=== PATIENT | female | born 1950 | race Caucasian/White ===

== ENCOUNTER 2020-08-16 08:22 | Outpatient (REF) | payer MEDICARE, SELFPAY ==
--- NOTE | 2020-08-16 08:27 | MM_ITS ---
EXAMINATION: MM SCREENING DIGITAL BREAST TOMOSYNTHESIS, BILATERAL CLINICAL INFORMATION: Screening. Asymptomatic. The lifetime risk of breast cancer based on the Tyrer-Cuzick Model is 5%. COMPARISON: Mammography: 08/11/2019, 08/18/2018, 06/30/2017, 06/03/2016 TECHNIQUE: Digital breast tomosynthesis is performed in both the craniocaudal and mediolateral oblique views along with computer-aided detection (CAD). Synthesized 2D images are generated from the tomosynthesis. Additional exaggerated left CC view is provided. FINDINGS: There are scattered areas of fibroglandular density (ACR BI-RADS breast composition Category b). Parenchymal pattern is similar to prior studies. There is no significant mass or architectural abnormality or interval abnormal calcifications. Nodular asymmetry posterior outer right breast on MLO view is similar to prior exams. The axilla and skin contours are unremarkable. MM/MM tomosynthesis screening BI IMPRESSION: No significant changes from prior exams. ASSESSMENT: BI-RADS 2: Benign RECOMMENDATION: Routine annual mammography screening. This patient's information was entered into a reminder system with a target due date for their next mammogram.
== END 2020-08-16 08:23 | disposition home or self-care (01) ==
LOC: HO.MAMMO 08:22
PROVIDERS: Visit Provider Internal Medicine
DX: Z12.31 Encounter for screening mammogram for malignant neoplasm of breast (principal)
CPT/HCPCS: 77063; 77067

== ENCOUNTER 2020-08-27 07:55 | Outpatient (REF) | payer MEDICARE, SELFPAY ==
--- NOTE | 2020-08-27 08:01 | MM_ITS ---
EXAMINATION: BONE DENSITOMETRY CLINICAL INDICATION: Menopause. COMPARISON: Baseline BD dated 01/12/2012. TECHNIQUE: Using a OLSET DXA System (software version: 13.1) manufactured by [employer], dual-energy x-ray absorptiometry was performed of the lumbar spine and left hip. The images are of good technical quality. Summary results are attached. FINDINGS: AP SPINE L1-L3 (excluding L4): The data of L1-L4 has been changed to exclude the L4 vertebral body, because degenerative changes at this level may cause overestimation of lumbar spine density. Current: BMD 0.879 g/cm2, Z-score -0.9, T-score -2.4, osteopenia, 16.4% decrease from baseline (<5% change is not significant). Baseline: BMD 1.051 g/cm2. LEFT FEMUR, NECK: Current: BMD 0.819 g/cm2, Z-score 0.0, T-score -1.6, osteopenia. Baseline: BMD 0.862 g/cm2. LEFT FEMUR, TOTAL: Current: BMD 0.889 g/cm2, Z-score 0.4, T-score -0.9, normal, 3.1% decrease from baseline (<5% change is not significant). Baseline: BMD 0.917 g/cm2. IDENTIFIED RISK FACTORS: Early menopause, height loss, hysterectomy, secondary osteoporosis. HISTORY OF FRACTURE: None listed. MEDICATIONS: None listed. MM/XR DEXA axial skeleton IMPRESSION: 1. DIAGNOSIS: Osteopenia based on the lowest T-score value of -2.4 in the lumbar spine applying World Health Organization criteria. 2. 10-YEAR FRACTURE RISK PREDICTION, FRAX: Major osteoporotic fracture (clinical spine, forearm, hip or shoulder) 10.1%. Hip fracture 1.5%. 3. Treatment Recommendations: NOF guidelines recommend consideration for treatment in postmenopausal women and men age 50 and older presenting with the following: -A hip or vertebral (clinical or morphometric) fracture. -T-score less than or equal to -2 at the femoral neck or spine after appropriate evaluation to exclude secondary causes. -Low bone mass at the hip or spine and a 10-year fracture probability by FRAX of greater than or equal to 3% for hip fracture or greater than or equal to 20% for major osteoporotic fracture based on the [place] adapted WHO algorithm. 4. Other Recommendations: All treatment decisions require clinical judgment and consideration of individual patient factors, including patient preferences, comorbidities, previous drug use, risk factors not captured in the FRAX model (e.g. frailty, falls, vitamin D deficiency, increased bone turnover, interval significant decline in bone density) and possible under or overestimation of fracture risk by FRAX. Additional medical evaluation for secondary cause of low bone mineral density may be appropriate. FUTURE SCAN RECOMMENDATION: People with diagnosed cases of osteoporosis or at high risk for fracture should have regular bone mineral density tests. For patients eligible for Medicare, routine testing is allowed once every 2 years. The testing frequency can be increased to one year for patients who have rapidly progressing disease, those who are receiving or discontinuing medical therapy to restore bone mass, or have additional risk factors.
== END 2020-08-27 07:56 | disposition home or self-care (01) ==
LOC: HO.MAMMO 07:55
PROVIDERS: PCP Internal Medicine; Visit Provider Internal Medicine
DX: Z78.0 Asymptomatic menopausal state (principal)
CPT/HCPCS: 77080

== ENCOUNTER 2020-12-19 08:44 | Emergency (ER) | payer MEDICARE, SELFPAY ==
--- NOTE | ~2020-12-19 | XR_ITS ---
EXAMINATION: XR ANKLE, RIGHT CLINICAL INFORMATION: Slipped and fell. Complaint of pain to right ankle and foot. COMPARISON: None TECHNIQUE: AP, lateral, and mortise views of the right ankle. FINDINGS: There is noted clinically oriented fracture of the left distal fibula with minimal posterolateral displacement. There is not appear to be widening of the tibia fibular syndesmosis. The ankle mortise is maintained. There is moderate soft tissue edema overlying the lateral malleolus. The remaining osseous structures are intact. No additional fracture identified. XR/XR ankle RT min 3V IMPRESSION: Obliquely oriented minimally displaced lateral malleolar fracture with overlying soft tissue edema.
--- NOTE | ~2020-12-19 | XR_ITS ---
EXAMINATION: XR FOOT, RIGHT CLINICAL INFORMATION: Slipped and fell. Complaint of pain right ankle and foot. COMPARISON: None TECHNIQUE: AP, lateral, and oblique views of the right foot. FINDINGS: There is an obliquely oriented fracture of the lateral malleolus better defined on radiographs of the ankle. The remaining osseous structures of the foot are intact. There are mild degenerative changes of the midfoot, otherwise alignment is maintained. Is maintained and anatomic. There are mild degenerative changes of the midfoot. There is a rounded calcific density interposed between the base of the first and second metatarsal with representing a small os intermetatarseum. There is soft tissue edema overlying the malleolus fracture. The soft tissues otherwise unremarkable. XR/XR foot RT min 3V IMPRESSION: Lateral malleolar fracture described in greater detail on radiographs of the foot. Minimal degenerative changes of the foot without acute osseous abnormality.
[2020-12-19 08:59] VITALS: BP 138/64; PULSE 86; RESP 16; TEMP 36.5; O2SAT 97; BMI 25.1
--- NOTE | 2020-12-19 09:49 | ED.LOWEXIN ---
HPI - Extremity Injury (Lower) General Chief Complaint: Extremity Injury, Lower Stated Complaint: ankle injury - fall Time Seen by Provider: 12/19/20 09:17 Source: patient Mode of arrival: ambulatory Limitations: no limitations History of Present Illness HPI Narrative: 70-year-old female presenting to the ED with complaints of right ankle/foot pain/swelling since last night when she fell down a few steps at her house in the basement while wearing slippers with her right foot/ankle twisted backwards behind her leg and since then has been having persistent pain/swelling. Denies head injury or loss of consciousness, paresthesias or any other injuries complaints or concerns at this time. MD complaint: ankle injury, foot injury and fall Onset (ago): day(s) (Since yesterday) Place: home Severity: moderate Relieving factors: nothing Exacerbating factors: weight bearing, movement and palpation Context: fall Associated symptoms: swelling and able to partially bear weight Other symptoms: none Treatments prior to arrival: cold therapy, NSAIDS and other (Mild to no symptomatic relief) Related Data Previous Rx's Medication Instructions Recorded acetaminophen [Tylenol Extra 500 mg PO Q6H PRN #14 tab 12/19/20 Strength] ibuprofen 600 mg PO Q8H PRN #14 tab 12/19/20 oxycodone 5 mg PO BID PRN #10 tab 12/19/20 Allergies Allergy/AdvReac Type Severity Reaction Status Date / Time Penicillins [PENICILLINS] Allergy Intermediate HIVES Unverified 06/20/20 15:32 sulfamethoxazole Allergy Unknown RASH Unverified 06/20/20 15:32 [From Bactrim DS] trimethoprim Allergy Unknown RASH Unverified 06/20/20 15:32 [From Bactrim DS] Review of Systems Review of Systems: Constitutional : No changes in activity, No lethargy, No recent prior head injury, No agitation, No increased fussiness ENT/Mouth : No Ear Pain, No Nasal discharge/drainage Eyes: No Eye Pain, No Swelling, No Redness, No Foreign Body, No Vision Changes Cardiovascular : No Chest Pain, No SOB Respiratory : No Cough Gastrointestinal : No Nausea, No Vomiting, No abdominal Pain Genitourinary : No Dysuria, No Urinary Frequency, No Urinary Incontinence, No Urgency, No Flank Pain Musculoskeletal : + joint pain, No neck stiffness, No back pain/injury Skin : No lacerations Neuro : No unsteady gait, No Paresthesias, No Loss of Consciousness, No altered mental status, No Headache Yes all other systems are reviewed and are negative [facility] Past Medical History Attestation statement: The following information was validated with the patient. Medical History High cholesterol Surgical History H/O: hysterectomy Social History Social History Advance Directives: No Advance Directives Information Provided: No Physical Exam Vital Signs: Vital Signs: Last Vital Signs Temp 97.7 F 12/19/20 08:59 Pulse 86 12/19/20 08:59 Resp 16 12/19/20 08:59 BP 138/64 12/19/20 08:59 Pulse Ox 97 12/19/20 08:59 Body Mass Index 25.1 Vital signs have been reviewed as normal and appeared to be correct. Blood pressure normal. Heart rate normal. Respiration rate normal. Temperature normal. Oxygen saturation normal. Appearance: Alert. Oriented x 3. No acute distress. Head: Normal external exam. Normocephalic. Atraumatic. Able to rotate head bilaterally. Eyes: PERRLA. EOMI. No nystagmus noted. Conjunctiva and sclera normal. Eyelids normal. Corneal reflex normal. ENT:Hearing normal. Pharynx normal. Uvula midline. tongue midline. Moist mucous membranes. Neck: Normal inspection. Neck supple. FROM. Nontender. CVS: Normal heart rate and rhythm. Heart sound normal. Pulses normal throughout. Respiratory: No respiratory distress. Painless inspiration. Breath sounds normal. No wheezes/rales/rhonchi noted. Chest nontender. Back: No tenderness noted. Full range of motion noted. Skin: Skin warm and dry. Normal skin color. Normal skin turgor. No rashes/lesions/lacerations noted. Extremities: Patient with tenderness to palpation to right ankle at the lateral and medial malleolus with associated soft tissue swelling going into her dorsal aspect of the right foot with associated soft tissue swelling from the 1st through the 5th metatarsals. No laxity noted. Negative constant test Achilles tendon is intact. No obvious deformities. No abrasions/lacerations or signs of infection noted. Although patient appears to walk with a slight limp to the right leg. Otherwise all other Extremities exhibit normal range of motion and nontender. Pulses intact bilaterally and distally. Reflux intact bilaterally and distally. Neuro: Oriented X 3. No motor deficit. No sensory deficit. Reflexes normal. Moving all extremities. No focal motor deficits. Speech normal. Gait normal. Strength 5/5 throughout. Muscle tone normal throughout. Course Course Course Narrative: 70-year-old female presenting to the ED with right ankle/foot pain/swelling status post fall down her steps at the basement yesterday. On exam patient has tenderness to palpation to right ankle at the lateral and medial malleolus with associated soft tissue swelling radiating to her right foot from the 1st to 5th metatarsals. No obvious deformities. Patient has a slight limp due to pain. - x-rays obtained and revealed obliquely oriented minimally displaced lateral malleolus fracture with overlying soft tissue edema - I consulted with Orthopedics POLLY Aguilar who recommended a walking boot and weight-bearing as tolerated and the patient will have to call to make a follow-up appointment within 1 week for re-x-ray to determine is stable or displaces therefore print out the results explained the results to the patient and gave her the number for the referral for Dr. Reilly office to follow-up within a week. Patient understands agrees with this plan. Procedures Orthopedic Splinting/Casting Injury #1: Side: right Lower Extremity Injury Location: ankle and foot Additional Comments: Walking boot MDM - Extremity Injury (Lower) Medical Records Attestation: I reviewed the patient's medical records. Imaging Data right ankle xray: Attestation: I personally reviewed and interpreted this imaging study as follows: Radiologist's impression: FINDINGS: There is noted clinically oriented fracture of the left distal fibula with minimal posterolateral displacement. There is not appear to be widening of the tibia fibular syndesmosis. The ankle mortise is maintained. There is moderate soft tissue edema overlying the lateral malleolus. The remaining osseous structures are intact. No additional fracture identified. XR/XR ankle RT min 3V IMPRESSION: Obliquely oriented minimally displaced lateral malleolar fracture with overlying soft tissue edema. Right foot x-ray: Attestation: I personally reviewed and interpreted this imaging study as follows: Radiologist's impression: FINDINGS: There is an obliquely oriented fracture of the lateral malleolus better defined on radiographs of the ankle. The remaining osseous structures of the foot are intact. There are mild degenerative changes of the midfoot, otherwise alignment is maintained. Is maintained and anatomic. There are mild degenerative changes of the midfoot. There is a rounded calcific density interposed between the base of the first and second metatarsal with representing a small os intermetatarseum. There is soft tissue edema overlying the malleolus fracture. The soft tissues otherwise unremarkable. XR/XR foot RT min 3V IMPRESSION: Lateral malleolar fracture described in greater detail on radiographs of the foot. Minimal degenerative changes of the foot without acute osseous abnormality. Discharge Plan Discharge Clinical Impression: Fracture of lateral malleolus of right ankle, Fall Patient Disposition: Home, Self-Care Instructions: Ankle Fracture (ED), Walking Boot (ED) Prescriptions: New oxycodone 5 mg tablet 5 mg PO BID PRN (Reason: pain) Qty: 10 RF: 0 acetaminophen [Tylenol Extra Strength] 500 mg tablet 500 mg PO Q6H PRN (Reason: pain) Qty: 14 RF: 0 ibuprofen 800 mg tablet 600 mg PO Q8H PRN (Reason: pain) Qty: 14 RF: 0 Referrals: Brad Reilly MD [Physician] - 1 day (Call today or tomorrow to make a follow-up appointment within a week) Print Language: Estonian
== END 2020-12-19 10:50 | disposition home or self-care (01) ==
PROVIDERS: Emergency Provider Emergency Medicine Emergency Medical Services; PCP Internal Medicine
DX: S82.61XA Displaced fracture of lateral malleolus of right fibula, initial encounter for closed fracture (principal); M25.571 Pain in right ankle and joints of right foot; W10.9XXA Fall (on) (from) unspecified stairs and steps, initial encounter; Y93.9 Activity, unspecified; Y92.009 Unspecified place in unspecified non-institutional (private) residence as the place of occurrence of the external cause; Y99.9 Unspecified external cause status; Z79.899 Other long term (current) drug therapy
CPT/HCPCS: 29515; 73610; 73630; 99202; 99283

== ENCOUNTER 2021-01-07 09:04 | Outpatient (REF) | payer MEDICARE, SELFPAY ==
--- NOTE | ~2021-01-07 | XR_ITS ---
EXAMINATION: XR ANKLE, RIGHT CLINICAL INFORMATION: Pain COMPARISON: Right ankle x-rays December 19, 2020 TECHNIQUE: AP, lateral, and mortise views of the right ankle. FINDINGS: Again demonstrated is an oblique comminuted fracture of the lateral malleolus. Alignment appears similar to prior imaging. There is a mild interval callus formation. The ankle mortise remains intact. There is persistent mild soft tissue swelling of the ankle. Plantar calcaneal enthesophytes noted. XR/XR ankle RT min 3V IMPRESSION: Mild interval healing of lateral malleolus fracture. Fracture line still well visualized.
== END 2021-01-07 09:05 | disposition home or self-care (01) ==
LOC: HO.HOSX 09:04
PROVIDERS: Visit Provider Physician Assistant
DX: S82.831A Other fracture of upper and lower end of right fibula, initial encounter for closed fracture (principal)
CPT/HCPCS: 73610; 99212

== ENCOUNTER 2021-02-27 07:13 | Outpatient (REF) | payer MEDICARE, SELFPAY ==
[2021-02-27 08:19] LABS: MANUAL DIFF FLAG NO
[2021-02-27 08:31] LABS: Basophils Percent Auto 0.8 % (0-2); Eosinophils Absolute Auto 0.1 X10*3/uL (0.0-0.4); Hematocrit 41.2 % (37-47); Hemoglobin 13.1 g/dl (12.0-16.0); Imm Gran Abs Auto 0.01 X10*3/uL (0.00-0.03); Imm Gran Pct Auto 0.2 % (0.0-0.4); Lymphocytes Absolute Auto 1.8 X10*3/uL (1.2-4.9); Lymphocytes Percent Auto 37.1 % (20-40); Mean Corpuscular HGB Conc 31.8 g/dl (31.0-35.0); Mean Corpuscular Hemoglobin 28.6 pg (27.0-33.0); Mean Platelet Volume 9.7 fL (9.4-12.3); Monocytes Absolute Auto 0.3 X10*3/uL (0.1-1.2); Neutrophils Absolute Auto 2.5 X10*3/uL (2.0-8.3); Neutrophils Percent Auto 51.9 % (45-73); Platelet Count 242 X10*3/uL (160-400); Red Blood Count 4.58 X10*6/uL (4.20-5.50); White Blood Count 4.7 X10*3/uL (4.8-10.8)
[2021-02-27 08:56] LABS: Alanine Aminotransferase 13 U/L (0-31); Albumin Level 4.3 g/dL (3.5-5.0); Alkaline Phosphatase 85 U/L (39-117); Anion Gap 12 (12-20); Aspartate Amino Transferase 18 U/L (5-31); Bilirubin Total 0.3 mg/dL (0.0-1.0); Blood Urea Nitrogen 20 mg/dL (9-16); Calcium 9.4 mg/dL (8.4-10.2); Carbon Dioxide 27 mmol/L (22-29); Chloride 106 mmol/L (96-108); Cholesterol 160 mg/dL; Estimated Glomerular Filt Rate > 60; Glucose Fasting 101 mg/dL (60-99); HDL Cholesterol 55 mg/dL; LDL Cholesterol Calculated 90 mg/dl; Potassium 4.9 mmol/L (3.3-5.1); Sodium 140 mmol/L (135-145); Total Protein 7.2 g/dL (6.5-8.0); Triglycerides 75 mg/dL
== END 2021-02-27 07:14 | disposition home or self-care (01) ==
LOC: HO.LAB 07:13
PROVIDERS: PCP Internal Medicine; Visit Provider Internal Medicine
DX: Z00.00 Encounter for general adult medical examination without abnormal findings (principal); E78.00 Pure hypercholesterolemia, unspecified
CPT/HCPCS: 36415; 80053; 80061; 85025

== ENCOUNTER 2021-04-16 15:06 | Outpatient (REF) | payer MEDICARE, SELFPAY ==
--- NOTE | ~2021-04-16 | XR_ITS ---
EXAMINATION: XR CHEST CLINICAL INFORMATION: Cough. Gastroesophageal reflux. COMPARISON: Chest radiograph dated 10/19/2011 TECHNIQUE: Two views of the chest were obtained. FINDINGS: The lungs are clear. The cardiomediastinal silhouette is normal in size. There is no pleural effusion or pneumothorax. No acute osseous abnormality. XR/XR chest 2V IMPRESSION: No acute cardiopulmonary findings.
== END 2021-04-16 15:07 | disposition home or self-care (01) ==
LOC: HO.XRAY 15:06
PROVIDERS: PCP Internal Medicine; Visit Provider Internal Medicine
DX: R05 Cough (principal); K21.9 Gastro-esophageal reflux disease without esophagitis
CPT/HCPCS: 71046

== ENCOUNTER 2021-08-19 10:17 | Outpatient (REF) | payer MEDICARE, SELFPAY ==
[2021-08-20 13:07] LABS: Lyme Abs Screen <0.90 index
== END 2021-08-19 10:18 | disposition home or self-care (01) ==
LOC: HO.LAB 10:17
PROVIDERS: PCP Internal Medicine; Visit Provider Internal Medicine
DX: T14.8XXA Other injury of unspecified body region, initial encounter (principal); W57.XXXA Bitten or stung by nonvenomous insect and other nonvenomous arthropods, initial encounter
CPT/HCPCS: 36415; 86617; 86618

== ENCOUNTER 2021-10-01 11:20 | Outpatient (REF) | payer MEDICARE, SELFPAY ==
--- NOTE | ~2021-10-01 | MM_ITS ---
EXAMINATION: MM SCREENING DIGITAL BREAST TOMOSYNTHESIS, BILATERAL CLINICAL INFORMATION: Screening. Asymptomatic. The lifetime risk of breast cancer based on the Tyrer-Cuzick Model is 5%. COMPARISON: Mammography: 08/16/2020, 08/11/2019, 07/18/2018 TECHNIQUE: Digital breast tomosynthesis is performed in both the craniocaudal and mediolateral oblique views along with computer-aided detection (CAD). Synthesized 2D images are generated from the tomosynthesis. FINDINGS: There are scattered areas of fibroglandular density (ACR BI-RADS breast composition Category b). There are no significant masses, abnormal calcifications, or other abnormalities. Parenchymal pattern is similar to prior exams. Focal asymmetry posterior outer right breast on MLO view is stable. Probable intramammary node posterior upper outer left breast also stable. There are scattered bilateral benign round and vascular calcifications. No significant changes. MM/MM tomosynthesis screening BI IMPRESSION: No mammographic evidence of malignancy. ASSESSMENT: BI-RADS 2: Benign RECOMMENDATION: Routine annual mammography screening. This patient's information was entered into a reminder system with a target due date for their next mammogram.
== END 2021-10-01 11:21 | disposition home or self-care (01) ==
LOC: HO.MAMMO 11:20
PROVIDERS: PCP Internal Medicine; Visit Provider Internal Medicine
DX: Z12.31 Encounter for screening mammogram for malignant neoplasm of breast (principal)
CPT/HCPCS: 77063; 77067

== ENCOUNTER 2021-10-29 14:38 | Outpatient (REF) | payer MEDICARE, SELFPAY ==
--- NOTE | ~2021-10-29 | XR_ITS ---
EXAMINATION: XR CERVICAL SPINE CLINICAL INFORMATION: Neck pain. COMPARISON: None TECHNIQUE: Three-view cervical spine. FINDINGS: Carotid artery calcifications are present. There is some soft tissue prominence seen anterior aspect of C6 which may be related to degenerative spurring. No retropharyngeal gas is appreciated. No acute cervical spine fracture is noted. There is multilevel degenerative disc disease seen with narrowing of the disc spaces and marginal spurring from C3 through C7. There is degenerative narrowing of the right side C1-C2 joint space. XR/XR cervical spine 3V IMPRESSION: Cervical spondylosis as described. No acute fracture.
== END 2021-10-29 14:39 | disposition home or self-care (01) ==
LOC: HO.LAB 14:38
PROVIDERS: PCP Internal Medicine; Visit Provider Internal Medicine
DX: M54.2 Cervicalgia (principal)
CPT/HCPCS: 72040

== ENCOUNTER 2021-11-12 10:28 | Outpatient (REF) | payer MEDICARE, SELFPAY ==
--- NOTE | ~2021-11-12 | MR_ITS ---
EXAMINATION: MR CERVICAL SPINE WITHOUT CONTRAST CLINICAL INFORMATION: 71-year-old with complaints of neck pain and left shoulder and elbow pain. Cervical spondylosis with degenerative disc disease and spurring. COMPARISON: 10/29/2021 x-rays. TECHNIQUE: MRI of the cervical spine was obtained using routine sequences without contrast. FINDINGS: Alignment: Alignment appears within normal limits. No significant spondylolisthesis or retrolisthesis. Craniocervical Junction/C1-C2 Articulations: Intact and aligned. Osteoarthritic degenerative changes are noted at the anterior atlantodental joint. Visualized Intracranial Structures: Within normal limits. Vertebral Bodies: Normal height. Disc Spaces and Endplates: Moderate degrees of intervertebral disc space height loss are noted between C3-C4 and C6-C7 inclusive, with multilevel disc desiccation and moderate degrees of anterior marginal spondylosis at these levels, with multilevel Schmorl's nodes. There is mqno-vz-varblxzt disc space height loss, Schmorl's nodes and mild spondylosis with disc desiccation also noted at T1-T2. There is minor anterior marginal spondylosis at C2-C3. These findings are similar to previous x-ray within the limitations of the comparison. Bone Marrow: No significant marrow-replacing process or bone marrow edema. Mild type II degenerative marrow signal changes are seen along the endplates at multiple levels, most prominently at C3-C4 and C4-C5. C2-C3: No disc herniation. Mild facet arthropathy noted, right more than left with no significant canal or neural foraminal stenosis. C3-C4: Broad-based posterior disc osteophyte complex noted, with moderate flattening of the ventral dural sac without cord impingement. There is mild central spinal canal stenosis. There is moderate bilateral facet arthrosis and there is uncovertebral spurring bilaterally with mild bilateral neural foraminal stenosis without neural impingement. C4-C5: Central to left paramedian disc herniation and disc osteophyte complex noted asymmetric to the left with effacement of the dural sac resulting in slight ventral cord deformity on the left, with the moderate central spinal canal stenosis asymmetric to the left. Bilateral uncovertebral spurring is noted with bilateral facet arthropathy, with purjtoev-ab-zrbqfp left-sided and moderate right-sided neural foraminal stenosis. C5-C6: Posterior disc osteophyte complex noted asymmetric to the left with flattening of the dural sac asymmetric to the left without cord impingement or deformity. Uncovertebral spurring noted left more than right and bilateral facet arthrosis, with crtvkdnk-lf-pbfqqr left-sided and mild right-sided neural foraminal stenosis. There is mild central spinal canal stenosis asymmetric to the left. C6-C7: Broad-based posterior disc osteophyte complex noted with mild flattening of the dural sac asymmetric to the left without cord impingement or canal stenosis. Bilateral uncovertebral spurring is noted with mild left-sided neural foraminal stenosis. C7-T1: Small central disc protrusion noted with minimal indentation of the ventral thecal sac without cord impingement or canal stenosis. No significant DJD or neural foraminal stenosis. Mild disc osteophyte complex at T1 to and T2-T3. The cervical and visualized upper thoracic spinal cord is grossly normal in signal intensity without focal lesion, edema or syrinx when accounting for some artifacts. MR/MR cervical spine wo con IMPRESSION: 1. Normal spinal alignment, with multilevel DDD and spondylosis as described above. There are multilevel posterior disc osteophyte complexes with encroachment on the ventral dural sac as described above with mild left-sided ventral cord deformity at C4-C5 and multilevel icvb-si-tcnntowc degrees of spinal canal stenosis, most apparent at C4-C5 and to a lesser degree at C3-C4 and C5-C6. 2. Multilevel bilateral uncovertebral and facet arthropathy with multilevel bilateral neural foraminal stenosis, most apparent at C4-C5, left more than right and at C5-C6 on the left.
== END 2021-11-12 10:29 | disposition home or self-care (01) ==
LOC: HO.MRI 10:28
PROVIDERS: Visit Provider Internal Medicine
DX: M47.22 Other spondylosis with radiculopathy, cervical region (principal)
CPT/HCPCS: 72141

== ENCOUNTER 2021-11-14 12:43 | Outpatient (REF) | payer MEDICARE, SELFPAY ==
--- NOTE | ~2021-11-14 | US_ITS ---
EXAMINATION: US EXTRACRANIAL CAROTID DUPLEX, BILATERAL CLINICAL INFORMATION: Carotid artery calcification identified on x-ray COMPARISON: Cervical spine radiographs 10/29/2021 TECHNIQUE: Real-time ultrasound and Doppler techniques (integrating B-mode 2-D vascular images, Doppler spectral analysis and color-flow Doppler imaging) were utilized to interrogate the extracranial carotid arteries, the vertebral arteries and proximal subclavian arteries bilaterally. The degree of stenosis is determined by criteria similar to NASCET. FINDINGS: Right Side: 1. There is atherosclerotic plaque seen in the bifurcation/proximal ICA region. 2. The common carotid artery PSV proximally is 112 cm/s and distally 105 cm/s. 3. The proximal internal carotid artery velocities are 104 cm/s systolic and 26.4 cm/s diastolic. 4. The proximal external carotid artery PSV is 140 cm/s. 5. The vertebral artery shows antegrade flow. 6. The subclavian artery waveforms are normal. Left Side: 1. There is atherosclerotic plaque seen in the bifurcation/proximal ICA region. 2. The common carotid artery PSV proximally is 145 cm/s and distally 89.1 cm/s. 3. The proximal internal carotid artery velocities are 145 cm/s systolic and 34.6 cm/s diastolic. 4. The proximal external carotid artery PSV is 124 cm/s. 5. The vertebral artery shows antegrade flow. 6. The subclavian artery waveforms are normal. US/US carotid duplex BI IMPRESSION: 1. RIGHT: Minimal, non-hemodynamically significant stenosis of the proximal right internal carotid artery corresponding to a 0-49% stenosis by velocity criteria. 2. LEFT: Moderate, hemodynamically significant stenosis of the proximal left internal carotid artery corresponding to a 50-79% stenosis by velocity criteria.
== END 2021-11-14 12:44 | disposition home or self-care (01) ==
LOC: HO.HMGCX 12:43
PROVIDERS: Visit Provider Internal Medicine
DX: I65.23 Occlusion and stenosis of bilateral carotid arteries (principal)
CPT/HCPCS: 93880

== ENCOUNTER 2022-10-06 08:51 | Outpatient (REF) | payer MEDICARE, SELFPAY ==
--- NOTE | ~2022-10-06 | MM_ITS ---
EXAMINATION: MM SCREENING DIGITAL BREAST TOMOSYNTHESIS, BILATERAL CLINICAL INFORMATION: Screening. Asymptomatic. The lifetime risk of breast cancer based on the Tyrer-Cuzick Model is 4%. COMPARISON: Mammography: 10/01/2021, 08/16/2020, 08/11/2019 TECHNIQUE: Digital breast tomosynthesis is performed in both the craniocaudal and mediolateral oblique views along with computer-aided detection (CAD). Synthesized 2D images are generated from the tomosynthesis. FINDINGS: There are scattered areas of fibroglandular density (ACR BI-RADS breast composition Category b). Breast tissue composition borders on heterogeneously dense. There are no significant masses, abnormal calcifications, or other abnormalities. Parenchymal pattern is similar to prior studies. Small nodular asymmetry posterior central 9:00 right breast is stable. No architectural abnormality. The axilla and skin contours are unremarkable. No significant changes. MM/MM tomosynthesis screening BI IMPRESSION: No significant changes from prior exams. ASSESSMENT: BI-RADS 2: Benign RECOMMENDATION: Routine annual mammography screening. This patient's information was entered into a reminder system with a target due date for their next mammogram.
== END 2022-10-06 08:52 | disposition home or self-care (01) ==
LOC: HO.MAMMO 08:51
PROVIDERS: PCP Internal Medicine; Visit Provider Internal Medicine
DX: Z12.31 Encounter for screening mammogram for malignant neoplasm of breast (principal)
CPT/HCPCS: 77063; 77067

== ENCOUNTER 2022-10-30 06:09 | Outpatient (REF) | payer MEDICARE, SELFPAY ==
--- NOTE | ~2022-10-30 | XR_ITS ---
EXAMINATION: XR HAND, LEFT CLINICAL INFORMATION: Left hand pain. COMPARISON: None TECHNIQUE: PA, lateral, and oblique views of the left hand. FINDINGS: There is loss of PIP and DIP joint space with mild periarticular spurring. No visible acute fracture, dislocation or subluxation seen. All loss of first carpometacarpal joint space is seen as well. No visible acute fracture, dislocation or subluxation seen. XR/XR hand LT min 3V IMPRESSION: Degenerative arthritic changes PIP and DIP joints and first carpometacarpal joint. No visible acute fracture, dislocation or subluxation seen.
[2022-10-30 06:30] LABS: MANUAL DIFF FLAG NO
[2022-10-30 07:28] LABS: Basophils Percent Auto 0.7 % (0-2); Eosinophils Absolute Auto 0.1 X10*3/uL (0.0-0.4); Hematocrit 38.2 % (37.0-47.0); Hemoglobin 12.6 g/dl (12.0-16.0); Imm Gran Abs Auto 0.01 X10*3/uL (0.00-0.03); Imm Gran Pct Auto 0.2 % (0.0-0.4); Lymphocytes Percent Auto 32.1 % (20-40); Mean Corpuscular Volume 87.8 fL (80.0-98.0); Mean Platelet Volume 9.2 fL (9.4-12.3); Monocytes Absolute Auto 0.4 X10*3/uL (0.1-1.2); Monocytes Percent Auto 6.2 % (2-11); Neutrophils Absolute Auto 3.6 x10*3/uL (2.0-8.3); Neutrophils Percent Auto 58.8 % (45-73); Platelet Count 283 X10*3/uL (160-400); Red Blood Count 4.35 X10*6/uL (4.20-5.50); Red Cell Distribution Width 12.6 % (11.0-16.0); White Blood Count 6.1 X10*3/uL (4.8-10.8)
[2022-10-30 08:00] LABS: Alanine Aminotransferase 15 U/L (0-31); Alkaline Phosphatase 71 U/L (39-117); Anion Gap 12 (12-20); Aspartate Amino Transferase 17 U/L (5-31); Bilirubin Total 0.7 mg/dL (0.0-1.0); Blood Urea Nitrogen 13 mg/dL (9-16); Calcium 9.2 mg/dL (8.4-10.2); Carbon Dioxide 28 mmol/L (22-29); Chloride 104 mmol/L (96-108); Cholesterol 177 mg/dL; Estimated Glomerular Filt Rate > 60; Glucose Fasting 101 mg/dL (60-99); HDL Cholesterol 47 mg/dL; LDL Cholesterol Calculated 115 mg/dl; Potassium 4.4 mmol/L (3.3-5.1); Sodium 140 mmol/L (135-145); Total Protein 6.9 g/dL (6.5-8.0); Triglycerides 79 mg/dL
[2022-10-30 08:17] LABS: Vitamin D 25-OH Total 40.2 ng/mL (>30)
== END 2022-10-30 06:10 | disposition home or self-care (01) ==
LOC: HO.XRAY 06:09
PROVIDERS: PCP Internal Medicine; Visit Provider Internal Medicine
DX: Z00.00 Encounter for general adult medical examination without abnormal findings (principal); M85.80 Other specified disorders of bone density and structure, unspecified site; M79.642 Pain in left hand
CPT/HCPCS: 36415; 73130; 80053; 80061; 82306; 85025

== ENCOUNTER 2022-11-03 12:45 | Outpatient (REF) | payer MEDICARE, SELFPAY ==
--- NOTE | ~2022-11-03 | US_ITS ---
EXAMINATION: US EXTRACRANIAL CAROTID DUPLEX, BILATERAL CLINICAL INFORMATION: Carotid stenosis. Hyperlipidemia. COMPARISON: 11/14/21. TECHNIQUE: Real-time ultrasound and Doppler techniques (integrating B-mode 2-D vascular images, Doppler spectral analysis and color-flow Doppler imaging) were utilized to interrogate the extracranial carotid arteries, the vertebral arteries and proximal subclavian arteries bilaterally. The degree of stenosis is determined by criteria similar to NASCET. FINDINGS: Right Side: 1. There is mild atherosclerotic plaque seen in the bifurcation/proximal ICA region. 2. The common carotid artery PSV proximally is 102 cm/s and distally 80 cm/s. 3. The proximal internal carotid artery velocities are 104 cm/s systolic and 31 cm/s diastolic. 4. The proximal external carotid artery PSV is 116 cm/s. 5. The vertebral artery shows antegrade flow. 6. The subclavian artery waveforms are normal. Left Side: 1. There is mild atherosclerotic plaque seen in the bifurcation/proximal ICA region. 2. The common carotid artery PSV proximally is 115 cm/s and distally 73 cm/s. 3. The proximal internal carotid artery velocities are 116 cm/s systolic and 30 cm/s diastolic. 4. The proximal external carotid artery PSV is 153 cm/s. 5. The vertebral artery shows antegrade flow. 6. The subclavian artery waveforms are normal. US/US carotid duplex BI IMPRESSION: 1. RIGHT: Minimal, non-hemodynamically significant stenosis of the proximal right internal carotid artery corresponding to a 0-49% stenosis by velocity criteria. 2. LEFT: Minimal, non-hemodynamically significant stenosis of the proximal left internal carotid artery corresponding to a 0-49% stenosis by velocity criteria. 3. The category severity of disease is stable on the right and improved on the left compared to 11/14/2021.
== END 2022-11-03 12:46 | disposition home or self-care (01) ==
LOC: HO.HMGCX 12:45
PROVIDERS: PCP Internal Medicine; Visit Provider Internal Medicine
DX: I65.23 Occlusion and stenosis of bilateral carotid arteries (principal)
CPT/HCPCS: 93880

== ENCOUNTER 2022-12-14 06:23 | Emergency (ER) | payer MEDICARE, SELFPAY ==
--- NOTE | 2022-12-14 | ECG_ITS ---
Test Reason : SOB Blood Pressure : / mmHG Vent. Rate : 081 BPM Atrial Rate : 081 BPM P-R Int : 126 ms QRS Dur : 082 ms QT Int : 378 ms P-R-T Axes : 013 042 022 degrees QTc Int : 439 ms Normal sinus rhythm Nonspecific ST abnormality Abnormal ECG When compared with ECG of 11-NOV-2011 16:04, T wave inversion now evident in Anterior leads Referred By: Generic ED Physician Electronically Signed By:Dae Julio
--- NOTE | ~2022-12-14 | CT_ITS ---
EXAMINATION: CT ABDOMEN AND PELVIS WITH CONTRAST CLINICAL INFORMATION: Right upper quadrant/epigastric pain. Anemia. Question peptic ulcer. COMPARISON: 12/14/2012 ultrasound TECHNIQUE: Multidetector volumetric images were obtained from the superior aspect of the liver through the pubic symphysis following administration 85 mL of Omnipaque 350 intravenous contrast. Sagittal and coronal reformatted images were obtained on the technologist's workstation. Oral contrast: No This CT examination was performed using dose optimization techniques as appropriate, variously including the following: *Automated exposure control *Adjustment of mA and/or kV according to patient size (this includes techniques or standardized protocols for targeted exams where dose is matched to indication/reason for exam; i.e. extremities or head) *Use of iterative reconstruction technique DLP: 473 mGy-cm FINDINGS: LUNG BASES: Small pleural effusions bilaterally with bandlike bilateral atelectasis/scarring. Coronary artery calcifications. Trace pericardial effusion. LIVER, GALLBLADDER, AND BILIARY TREE: The liver is normal in size, shape, and attenuation. Area of hypoattenuation along the falciform ligament favors focal fatty infiltration. No focal hepatic lesion or biliary ductal dilatation is present. The gallbladder is unremarkable with no evidence of radiopaque gallstones, gallbladder wall thickening, or obvious pericholecystic inflammatory changes. PANCREAS: Unremarkable. SPLEEN: Unremarkable. ADRENAL GLANDS: Unremarkable. KIDNEYS AND URETERS: The kidneys are normal in size, shape, and attenuation. No hydronephrosis, hydroureter, or calculi seen. No perinephric stranding. BLADDER: Unremarkable. GASTROINTESTINAL TRACT: The stomach is decompressed. Normal caliber small bowel. No obstruction. No colonic wall thickening or acute inflammation. Gas-filled appearance of the sigmoid colon. No free air or free fluid. ABDOMINAL WALL: No significant hernia is appreciated. LYMPH NODES: Normal. VASCULAR: Normal caliber aorta with mild atherosclerotic calcification. PELVIC VISCERA: Uterus not seen. No adnexal mass. OSSEOUS STRUCTURES: No acute or suspicious osseous abnormality. Moderate degenerative change of the lower lumbar spine. CT/CT abdomen pelvis w IV con IMPRESSION: 1. No acute findings in the abdomen or pelvis. No inflammatory changes. 2. Small bilateral pleural effusions. Fleischner guidelines were followed.
--- NOTE | ~2022-12-14 | XR_ITS ---
EXAMINATION: XR CHEST CLINICAL INFORMATION: Dyspnea. COMPARISON: Chest radiograph 04/16/2021. TECHNIQUE: 2 views of the chest were obtained. FINDINGS: Unchanged cardiomediastinal silhouette. New small bilateral pleural effusions with bibasilar airspace opacities. No pneumothorax. No acute osseous abnormalities. Thoracic spondylosis. XR/XR chest 2V IMPRESSION: New small bilateral pleural effusions with bibasilar airspace opacities. Findings are nonspecific and could be associated with pulmonary edema, aspiration or pneumonia.
--- NOTE | ~2022-12-14 | US_ITS ---
EXAMINATION: US ABDOMEN LIMITED CLINICAL INFORMATION: Right upper quadrant pain. COMPARISON: None TECHNIQUE: Real-time imaging of the right upper quadrant abdominal viscera. FINDINGS: PANCREAS: Normal. LIVER: Not evaluated. GALLBLADDER: Normal. The gallbladder is physiologically distended without evidence of stones, sludge, polyps, wall thickening or pericholecystic fluid. COMMON BILE DUCT: Normal in caliber measuring 0.5 cm in diameter. RIGHT KIDNEY: Not evaluated. FREE FLUID: None. US/US abdomen limited IMPRESSION: Normal appearance of the gallbladder. No ductal dilatation.
[2022-12-14 06:34] VITALS: BP 153/72; PULSE 89; RESP 16; O2SAT 98; BMI 24.6
--- NOTE | 2022-12-14 07:19 | ED_ITS ---
HPI - Abdominal Pain General Chief Complaint: Dyspnea Stated Complaint: abd pain, radiates across body Time Seen by Provider: 12/14/22 06:33 Source: patient Mode of arrival: ambulatory History of Present Illness HPI narrative: 72-year-old female without significant go history who presents with 1 week of right upper quadrant pain that radiates into her right back approximately 2 hours after eating fatty meals. She denies any associated nausea, vomiting, fever, chills but this has led to her feeling short of breath during the painful episodes. Related Data Previous Rx's Medication Instructions Recorded acetaminophen 500 mg tablet 500 mg PO Q6H PRN pain #14 tabs 12/19/20 (Tylenol Extra Strength) ibuprofen 800 mg tablet 600 mg PO Q8H PRN pain #14 tabs 12/19/20 oxycodone 5 mg tablet 5 mg PO BID PRN pain #10 tabs 12/19/20 Allergies Allergy/AdvReac Type Severity Reaction Status Date / Time Penicillins [PENICILLINS] Allergy Intermediate HIVES Verified 01/07/21 09:15 sulfamethoxazole Allergy Unknown RASH Verified 01/07/21 09:15 [From Bactrim DS] trimethoprim Allergy Unknown RASH Verified 01/07/21 09:15 [From Bactrim DS] Review of Systems Review of Systems Pertinent positives and negatives as stated in HPI PMFSH Past Medical History Source: nursing notes reviewed Medical History High cholesterol Surgical History H/O: hysterectomy Social History Social History Advance Directives: No Advance Directives Information Provided: Yes Physical Exam ED Vital Signs: Vital Signs - 24 hr 12/14/22 06:34 12/14/22 07:25 12/14/22 10:59 Temperature 98.2 F Pulse Rate 89 78 85 Respiratory Rate 16 17 23 H Blood Pressure 153/72 H 143/60 H 133/58 L Pulse Oximetry 98 97 95 Oxygen Delivery Method Room Air Room Air Room Air BMI result Body Mass Index 24.6 VITAL SIGNS: Reviewed. GENERAL: Well developed, well nourished, in no acute distress. HEAD: Normocephalic/atraumatic EYES: PERRLA, EOMI EARS: Ext canals without abnormality NOSE: Nares patent bilateral OROPHARYNX: no oral lesions noted, posterior pharynx clear NECK: Supple, no adenopathy LUNGS: Normal breath sounds. No adventitious sounds or accessory muscle use. SpO2<98> CARDIOVASCULAR: Regular rate and rhythm without noted murmurs ABDOMEN: Soft, mild tenderness to palpation in right upper quadrant without rebound, non-distended with bowel sounds. MUSCULOSKELETAL: No tenderness, deformities, or effusions noted on gross inspection. EXTREMITIES: No cyanosis, clubbing or edema. SKIN: Inspection of the skin reveals no rashes NEUROLOGIC: Alert and oriented x 4. Strength and sensation to light touch were grossly intact x 4. Medical Decision Making Medical Decision Making [facility] Narrative: 0721: 72-year-old female with history and clinical presentation most consistent with likely biliary colic and low clinical suspicion for active cholecystitis at this time but will obtain basic labs, ultrasound. 0826: Reviewed all investigations, patient has a new anemia with a negative ultrasound of the gallbladder raising concern for possible peptic ulcer and upper GI bleed. Will order abdomen pelvis with IV contrast, discussed results with the patient, and do a stool guaiac. 1303: I discussed all results with patient at bedside, she is aware that her b lood counts are a little bit low with a negative CT scan but also noted to have been recently started on aspirin, I instructed the patient to stop taking the aspirin at this time until she follows up with her primary care provider and gets that GI referral. There is no evidence that this would be contributed by renal function as all chemistries appear to be within normal limits, urinalysis is within normal limits and ultrasound of the gallbladder is negative, chest x- ray showed bilateral pleural effusions which was also discussed with patient at bedside of unclear etiology. Patient was instructed to follow-up with her primary care provider and also suggestion for cardiology evaluation. Differential Diagnosis Please see the discussion above Lab Data Please see the discussion above 12/14/22 07:18 12/14/22 07:18 Labs: Lab Results 12/14/22 12/14/22 12/14/22 Range/Units 07:18 07:18 07:18 WBC 5.5 (4.8-10.8) X10*3/uL RBC 3.94 L (4.20-5.50) X10*6/uL Hgb 10.6 L (12.0-16.0) g/dl Hct 33.2 L (37.0-47.0) % MCV 84.3 (80.0-98.0) fL MCH 26.9 L (27.0-33.0) pg MCHC 31.9 (31.0-35.0) g/dl RDW 12.2 (11.0-16.0) % Plt Count 383 D (160-400) X10*3/uL MPV 8.8 L (9.4-12.3) fL Immature Gran % (Auto) 0.4 (0.0-0.4) % Neut % (Auto) 79.1 H (45-73) % Lymph % (Auto) 11.1 L (20-40) % [place] % (Auto) 6.2 (2-11) % Eos % (Auto) 2.7 (0-4) % Baso % (Auto) 0.5 (0-2) % Lymph # (Auto) 0.6 L (1.2-4.9) X10*3/uL [place] # (Auto) 0.3 (0.1-1.2) X10*3/uL Eos # (Auto) 0.2 (0.0-0.4) X10*3/uL Baso # (Auto) 0.0 (0.0-0.2) X10*3/uL Abs Immat Gran (auto) 0.02 (0.00-0.03) X10*3/uL Absolute Neuts (auto) 4.4 (2.0-8.3) x10*3/uL Absolute Nucleated RBC 0.000 (0.0-0.012) X10*3/uL Nucleated RBC % (auto) 0.0 (0.0-0.2) /100WBC Sodium 140 (135-145) mmol/L Potassium 4.1 (3.3-5.1) mmol/L Chloride 106 (96-108) mmol/L Carbon Dioxide 26 (22-29) mmol/L Anion Gap 12 (12-20) BUN 12 (9-16) mg/dL Creatinine 0.62 (0.5-1.4) mg/dL Estim Creat Clear Calc 73.4 Estimated GFR > 60 Random Glucose 110 (60-115) mg/dL Calcium 8.4 D (8.4-10.2) mg/dL Total Bilirubin 0.6 (0.0-1.0) mg/dL Direct Bilirubin 0.2 (0.0-0.5) mg/dL AST 18 (5-31) U/L ALT 22 (0-31) U/L Alkaline Phosphatase 76 (39-117) U/L Troponin I High Sens 4.2 (<3.5-17.0) ng/L B-Natriuretic Peptide (<100) pg/mL Total Protein 6.2 L (6.5-8.0) g/dL Albumin 3.4 L (3.5-5.0) g/dL Lipase 11 (8-78) U/L Urine Color Urine Appearance Urine pH (5.0-9.0) Ur Specific [place] (1.005-1.025) Urine Protein (Neg-Trace) mg/dL Urine Glucose (UA) (Negative) mg/dL Urine Ketones (Negative) mg/dL Urine Blood (Negative) Urine Nitrite (Negative) Ur Leukocyte Esterase (Negative) Stool Occult Blood (NEGATIVE) COVID-19 (ERNIE) (Negative) COVID-19 Clin Com 12/14/22 12/14/22 12/14/22 Range/Units 07:18 07:18 08:40 WBC (4.8-10.8) X10*3/uL RBC (4.20-5.50) X10*6/uL Hgb (12.0-16.0) g/dl Hct (37.0-47.0) % MCV (80.0-98.0) fL MCH (27.0-33.0) pg MCHC (31.0-35.0) g/dl RDW (11.0-16.0) % Plt Count (160-400) X10*3/uL MPV (9.4-12.3) fL Immature Gran % (Auto) (0.0-0.4) % Neut % (Auto) (45-73) % Lymph % (Auto) (20-40) % [place] % (Auto) (2-11) % Eos % (Auto) (0-4) % Baso % (Auto) (0-2) % Lymph # (Auto) (1.2-4.9) X10*3/uL [place] # (Auto) (0.1-1.2) X10*3/uL Eos # (Auto) (0.0-0.4) X10*3/uL Baso # (Auto) (0.0-0.2) X10*3/uL Abs Immat Gran (auto) (0.00-0.03) X10*3/uL Absolute Neuts (auto) (2.0-8.3) x10*3/uL Absolute Nucleated RBC (0.0-0.012) X10*3/uL Nucleated RBC % (auto) (0.0-0.2) /100WBC Sodium (135-145) mmol/L Potassium (3.3-5.1) mmol/L Chloride (96-108) mmol/L Carbon Dioxide (22-29) mmol/L Anion Gap (12-20) BUN (9-16) mg/dL Creatinine (0.5-1.4) mg/dL Estim Creat Clear Calc Estimated GFR Random Glucose (60-115) mg/dL Calcium (8.4-10.2) mg/dL Total Bilirubin (0.0-1.0) mg/dL Direct Bilirubin (0.0-0.5) mg/dL AST (5-31) U/L ALT (0-31) U/L Alkaline Phosphatase (39-117) U/L Troponin I High Sens (<3.5-17.0) ng/L B-Natriuretic Peptide 99 (<100) pg/mL Total Protein (6.5-8.0) g/dL Albumin (3.5-5.0) g/dL Lipase (8-78) U/L Urine Color Urine Appearance Urine pH (5.0-9.0) Ur Specific [place] (1.005-1.025) Urine Protein (Neg-Trace) mg/dL Urine Glucose (UA) (Negative) mg/dL Urine Ketones (Negative) mg/dL Urine Blood (Negative) Urine Nitrite (Negative) Ur Leukocyte Esterase (Negative) Stool Occult Blood NEGATIVE (NEGATIVE) COVID-19 (ERNIE) Negative (Negative) COVID-19 Clin Com See Note 12/14/22 Range/Units 11:12 WBC (4.8-10.8) X10*3/uL RBC (4.20-5.50) X10*6/uL Hgb (12.0-16.0) g/dl Hct (37.0-47.0) % MCV (80.0-98.0) fL MCH (27.0-33.0) pg MCHC (31.0-35.0) g/dl RDW (11.0-16.0) % Plt Count (160-400) X10*3/uL MPV (9.4-12.3) fL Immature Gran % (Auto) (0.0-0.4) % Neut % (Auto) (45-73) % Lymph % (Auto) (20-40) % [place] % (Auto) (2-11) % Eos % (Auto) (0-4) % Baso % (Auto) (0-2) % Lymph # (Auto) (1.2-4.9) X10*3/uL [place] # (Auto) (0.1-1.2) X10*3/uL Eos # (Auto) (0.0-0.4) X10*3/uL Baso # (Auto) (0.0-0.2) X10*3/uL Abs Immat Gran (auto) (0.00-0.03) X10*3/uL Absolute Neuts (auto) (2.0-8.3) x10*3/uL Absolute Nucleated RBC (0.0-0.012) X10*3/uL Nucleated RBC % (auto) (0.0-0.2) /100WBC Sodium (135-145) mmol/L Potassium (3.3-5.1) mmol/L Chloride (96-108) mmol/L Carbon Dioxide (22-29) mmol/L Anion Gap (12-20) BUN (9-16) mg/dL Creatinine (0.5-1.4) mg/dL Estim Creat Clear Calc Estimated GFR Random Glucose (60-115) mg/dL Calcium (8.4-10.2) mg/dL Total Bilirubin (0.0-1.0) mg/dL Direct Bilirubin (0.0-0.5) mg/dL AST (5-31) U/L ALT (0-31) U/L Alkaline Phosphatase (39-117) U/L Troponin I High Sens (<3.5-17.0) ng/L B-Natriuretic Peptide (<100) pg/mL Total Protein (6.5-8.0) g/dL Albumin (3.5-5.0) g/dL Lipase (8-78) U/L Urine Color Yellow Urine Appearance Clear Urine pH 7.0 (5.0-9.0) Ur Specific [place] >= 1.030 H (1.005-1.025) Urine Protein Negative (Neg-Trace) mg/dL Urine Glucose (UA) Negative (Negative) mg/dL Urine Ketones Trace (Negative) mg/dL Urine Blood Negative (Negative) Urine Nitrite Negative (Negative) Ur Leukocyte Esterase Negative (Negative) Stool Occult Blood (NEGATIVE) COVID-19 (ERNIE) (Negative) COVID-19 Clin Com Independent Interpretation I performed an independent interpretation of an: EKG Interpretation: Normal sinus rhythm, HR-81, no STEMI, MS/QRS/QTC is within normal limits Radiology Impression Radiologist Impression: My interpretation is in agreement with radiology's impression of the imaging studies. External Record Review External record reviewed: Prior outpatient labs Medications Administered Discontinued Medications Generic Name Dose Route Start Last Admin Trade Name Freq PRN Reason Stop Dose Admin Iohexol 100 ml 12/14/22 09:21 12/14/22 09:22 Iohexol 350 Mg/Ml 100 Ml Infus..Btl IV 12/14/22 09:22 85 ml ONCE ONE Administration Discharge Plan Discharge Clinical Impression: Acute anemia, Epigastric pain, Bilateral pleural effusion Patient Disposition: Home, Self-Care Instructions: Anemia (ED), Abdominal Pain (ED), Pleural Effusion (ED) Additional Instructions: 1. Stop taking aspirin/ibuprofen/Motrin/Aleve/Naprosyn but otherwise please continue with all prescribed medications. 2. Follow-up with your primary care provider by calling the office today. At that visit you should discuss a possible referral for Gastroenterology for upper endoscopy, and possibly follow-up for Cardiology to further characterize the etiology of your fluid in the lungs. Return to the ER for any acute worsening of symptoms. Prescriptions: No Action oxycodone 5 mg tablet 5 mg PO BID PRN (Reason: pain) Qty: 10 0RF acetaminophen [Tylenol Extra Strength] 500 mg tablet 500 mg PO Q6H PRN (Reason: pain) Qty: 14 0RF Rx Instructions: You can take 1-2 tabs for a total of a 1000 mg every 6-8 hours ibuprofen 800 mg tablet 600 mg PO Q8H PRN (Reason: pain) Qty: 14 0RF Referrals: Bert La MD [Physician] -
[2022-12-14 07:24] LABS: MANUAL DIFF FLAG NO
[2022-12-14 07:25] VITALS: BP 143/60; PULSE 78; RESP 17; O2SAT 97
[2022-12-14 07:29] LABS: Basophils Percent Auto 0.5 % (0-2); Eosinophils Absolute Auto 0.2 X10*3/uL (0.0-0.4); Eosinophils Percent Auto 2.7 % (0-4); Hematocrit 33.2 % (37.0-47.0); Hemoglobin 10.6 g/dl (12.0-16.0); Imm Gran Abs Auto 0.02 X10*3/uL (0.00-0.03); Imm Gran Pct Auto 0.4 % (0.0-0.4); Lymphocytes Absolute Auto 0.6 X10*3/uL (1.2-4.9); Lymphocytes Percent Auto 11.1 % (20-40); Mean Corpuscular HGB Conc 31.9 g/dl (31.0-35.0); Mean Corpuscular Hemoglobin 26.9 pg (27.0-33.0); Mean Corpuscular Volume 84.3 fL (80.0-98.0); Mean Platelet Volume 8.8 fL (9.4-12.3); Monocytes Absolute Auto 0.3 X10*3/uL (0.1-1.2); Monocytes Percent Auto 6.2 % (2-11); Neutrophils Absolute Auto 4.4 x10*3/uL (2.0-8.3); Neutrophils Percent Auto 79.1 % (45-73); Platelet Count 383 X10*3/uL (160-400); Red Blood Count 3.94 X10*6/uL (4.20-5.50); Red Cell Distribution Width 12.2 % (11.0-16.0); White Blood Count 5.5 X10*3/uL (4.8-10.8)
[2022-12-14 07:39] LABS: COVID-19 Test Negative (Negative); IDNOW Serial# 16C4AD1C
[2022-12-14 07:49] LABS: Troponin-I High Sensitivity 4.2 ng/L (<3.5-17.0)
[2022-12-14 07:55] LABS: Alanine Aminotransferase 22 U/L (0-31); Albumin Level 3.4 g/dL (3.5-5.0); Alkaline Phosphatase 76 U/L (39-117); Anion Gap 12 (12-20); Aspartate Amino Transferase 18 U/L (5-31); Bilirubin Direct 0.2 mg/dL (0.0-0.5); Bilirubin Total 0.6 mg/dL (0.0-1.0); Blood Urea Nitrogen 12 mg/dL (9-16); Calcium 8.4 mg/dL (8.4-10.2); Carbon Dioxide 26 mmol/L (22-29); Chloride 106 mmol/L (96-108); Creatinine Clr Calc Pharmacy 73.4; Estimated Glomerular Filt Rate > 60; Glucose Random 110 mg/dL (60-115); Lipase 11 U/L (8-78); Potassium 4.1 mmol/L (3.3-5.1); Sodium 140 mmol/L (135-145); Total Protein 6.2 g/dL (6.5-8.0)
[2022-12-14 08:46] LABS: OBS Int Ctl Valid YES; OBS1 NEGATIVE (NEGATIVE)
[2022-12-14 09:14] LABS: B Type Natriuretic Peptide 99 pg/mL (<100)
[2022-12-14] MEDS: iohexoL 350 MG/ML 100 ML INFUS..BTL IV (09:22)
[2022-12-14 10:59] VITALS: BP 133/58; PULSE 85; RESP 23; TEMP 36.8; O2SAT 95
[2022-12-14 11:40] LABS: Appearance Urine Clear; Color Urine Yellow; Glucose Urine UA Negative (Negative); Leukocyte Esterase Urine Negative (Negative); Nitrite Urine Negative (Negative); Specific Gravity - Urine >= 1.030 (1.005-1.025); Urine Blood Negative (Negative); Urine Ketones Trace mg/dL (Negative); Urine Protein Negative (Neg-Trace)
== END 2022-12-14 13:35 | disposition home or self-care (01) ==
PROVIDERS: Emergency Provider Student in an Organized Health Care Education/Training Program
DX: D64.9 Anemia, unspecified (principal); R06.02 Shortness of breath; R10.13 Epigastric pain; M79.10 Myalgia, unspecified site; J90 Pleural effusion, not elsewhere classified; R10.11 Right upper quadrant pain; M54.50 Low back pain, unspecified; Z20.822 Contact with and (suspected) exposure to COVID-19; Z20.828 Contact with and (suspected) exposure to other viral communicable diseases; Z79.899 Other long term (current) drug therapy
CPT/HCPCS: 36415; 71046; 74177; 76705; 80053; 81003; 82248; 82272; 83690; 83880; 84484; 85025; 87635; 93005; 99284; Q9967

== ENCOUNTER → 2022-12-16 14:05 | Outpatient (BNVA) | payer MEDICARE, SELFPAY | PROVIDERS: PCP Internal Medicine; Visit Provider Internal Medicine ==

== ENCOUNTER → 2022-12-16 14:33 | Outpatient (REF) | payer MEDICARE, SELFPAY ==
--- NOTE | 2022-12-16 14:36 | CA_ITS ---
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 The visually estimated ejection fraction is between 55-60%. - No obvious valvular pathology seen on this study. Findings Left Ventricle Normal left ventricular cavity size. There is mildly increased left ventricular wall thickness. The left ventricular systolic function is normal. The visually estimated ejection fraction is between 55-60%. There is no evidence of regional wall motion abnormalities. Diastolic function is normal for age. LV peak GLS -15.9%. Right Ventricle Normal right ventricular cavity size. There is low normal right ventricular systolic function. Atria Both atria are normal in size. Aortic Valve There is a normal trileaflet aortic valve. There is mild calcification of the aortic valve. There is no aortic valve stenosis. There is no aortic valve regurgitation. Mitral Valve The mitral valve appears normal. There is no mitral valve regurgitation. There is no mitral valve stenosis. Pulmonic Valve The pulmonic valve is likely normal. Tricuspid Valve Normal tricuspid valve structure. There is trace tricuspid valve regurgitation. There is no evidence of pulmonary hypertension. Great Vessels The asc aorta is normal in size. Venous The inferior vena cava is normal in size and collapses greater than 50% with inspiration. Pericardium/Pleural There is a trivial pericardial effusion. Prior Study Comparison No prior study available for comparison. Recommendations, Care & Conclusions No obvious valvular pathology seen on this study. Measurements 2D Linear Measurements IVSd: 1.05 0.6-0.9/0.6-1.0 cm LVIDd: 4.78 3.9-5.3/4.2-5.9 cm LVIDd Index: 2.88 2.4-3.2/2.2-3.1 cm/m2 LVIDs: 2.93 2.0-3.6 cm LVPWd: 1.14 0.7-1.1 cm LA Diam: 3.80 2.7-3.8/3.0-4.0 cm LAIDs Index: 2.29 1.5-2.3 cm/m2 LV Mass: 238.57 67-162/88-224 g LV Mass Index: 143.72 43-95/49-115 g/m2 LVOT Diam: 2.20 3.0+(-)1.3 cm 2D Systolic Function EF 4C: 56.90 >55% EF 2C: 47.90 >55% EF BiP: 51.90 >55% Mitral Valve MV Pk E: 0.90 MV PK A: 0.69 MV Decel Time: 206.00 E/A: 1.30 E'Lateral: 9.46 E'Medial: 7.40 E/E' Med: 12.20 E/E' Lat: 9.50 PHT: 60.00 MVA PHT: 3.67 Decel [place]: 4.36 Aortic Valve AoV Pk Alex: 1.30 AoV Pk Grad: 7.00 SUKH: 3.10 LVOT LVOT Pk Alex: 1.06 LVOT Mn Alex: 0.70 LVOT VTI: 0.23 LVOT Pk Grad: 4.00 LVOT Mn Grad: 2.00 LVOT Diam: 2.20 LVOT Area: 3.80 Diastolic Function MV Pk E: 0.90 MV Pk A: 0.69 E/A: 1.30 E'Medial: 7.40 E/E' Med: 12.20 E' Laterial: 9.46 E/E' Lat: 9.50 Right Ventricle TAPSE (mm): 15.20 TVS' Alex: 10.90 Tricuspid Valve TR Pk Alex: 2.10 TR Pk Grad: 18.00 RA Press: 3.00 RVSP: 21.00 Great Vessels Aorta Sinus of Valsalva: 3.10 2.0-3.5 cm Ao Asc: 3.60 2.1-3.4 cm Ao Arch: 2.60 Pulmonary Veins Pulm Vein S/D 1.20 Pulmonary Valve PV Pk Alex: 0.87 Peak PV Grad: 3.00 Updated in Other Vendor System with Status of Final Narendra Noonan MD electronically signed on 12/16/2022 3:48:58 PM with status of Final
== END ==
LOC: HO.CARD 14:33
PROVIDERS: Visit Provider Internal Medicine
DX: R07.9 Chest pain, unspecified (principal); R06.02 Shortness of breath; I25.10 Atherosclerotic heart disease of native coronary artery without angina pectoris; J90 Pleural effusion, not elsewhere classified
CPT/HCPCS: 93306; 93356; 99202

== ENCOUNTER 2022-12-21 15:23 | Outpatient (REF) | payer MEDICARE, SELFPAY ==
[2022-12-21 15:51] LABS: MANUAL DIFF FLAG NO
[2022-12-21 17:04] LABS: Basophils Absolute Auto 0.1 X10*3/uL (0.0-0.2); Basophils Percent Auto 0.5 % (0-2); Eosinophils Absolute Auto 0.2 X10*3/uL (0.0-0.4); Eosinophils Percent Auto 2.2 % (0-4); Hematocrit 35.1 % (37.0-47.0); Hemoglobin 11.1 g/dl (12.0-16.0); Imm Gran Abs Auto 0.02 X10*3/uL (0.00-0.03); Imm Gran Pct Auto 0.2 % (0.0-0.4); Lymphocytes Absolute Auto 1.4 X10*3/uL (1.2-4.9); Lymphocytes Percent Auto 15.6 % (20-40); Mean Corpuscular HGB Conc 31.6 g/dl (31.0-35.0); Mean Corpuscular Hemoglobin 26.6 pg (27.0-33.0); Mean Corpuscular Volume 84.2 fL (80.0-98.0); Mean Platelet Volume 9.3 fL (9.4-12.3); Monocytes Absolute Auto 0.5 X10*3/uL (0.1-1.2); Monocytes Percent Auto 5.8 % (2-11); Neutrophils Absolute Auto 6.9 x10*3/uL (2.0-8.3); Neutrophils Percent Auto 75.7 % (45-73); Platelet Count 498 X10*3/uL (160-400); Red Blood Count 4.17 X10*6/uL (4.20-5.50); Red Cell Distribution Width 12.5 % (11.0-16.0); White Blood Count 9.1 X10*3/uL (4.8-10.8)
[2022-12-21 17:33] LABS: Anion Gap 19 (12-20); Blood Urea Nitrogen 16 mg/dL (9-16); Calcium 9.2 mg/dL (8.4-10.2); Carbon Dioxide 23 mmol/L (22-29); Chloride 99 mmol/L (96-108); Estimated Glomerular Filt Rate > 60; Glucose Random 90 mg/dL (60-115); Potassium 4.4 mmol/L (3.3-5.1); Sodium 137 mmol/L (135-145)
[2022-12-21 17:39] LABS: C Reactive Protein 7.82 mg/dL (< or = 0.50); Iron 15 mcg/dL (30-160); Percent Iron Saturation 6 % (15-50); Total Iron Binding Capacity 231 mcg/dL (228-428); Unsaturated Iron Binding 216 ug/dL
[2022-12-21 18:00] LABS: Free T4 (Free Thyroxine) 1.09 ng/dL (0.71-1.85); Thyroid Stimulating Hormone 2.85 uIU/mL (0.32-4.0); Vitamin B12 389 pg/mL (200-900)
[2022-12-21 20:20] LABS: Erythrocyte Sedimentation Rate 88 MM/HR (0-20)
[2022-12-24 08:34] LABS: Anti Nuclear Antibody Screen NEGATIVE (NEGATIVE)
[2022-12-24 11:39] LABS: TS Negative Control Passed; TS Panel A 0; TS Panel B 0; TS Positive Control Passed; TSpotTB Negative (Negative)
== END 2022-12-21 15:24 | disposition home or self-care (01) ==
LOC: HO.LAB 15:23
PROVIDERS: Internal Medicine; PCP Internal Medicine; Visit Provider Internal Medicine
DX: Z01.812 Encounter for preprocedural laboratory examination (principal); D64.9 Anemia, unspecified; R30.0 Dysuria; J90 Pleural effusion, not elsewhere classified
CPT/HCPCS: 36415; 80048; 82607; 83540; 84439; 84443; 85025; 85652; 86038; 86039; 86140; 86481

== ENCOUNTER 2022-12-22 10:37 | Outpatient (REF) | payer MEDICARE, SELFPAY ==
[2022-12-22 10:55] LABS: Appearance Urine Clear; Color Urine Yellow; Glucose Urine UA Negative (Negative); Leukocyte Esterase Urine Moderate (2+) (Negative); Nitrite Urine Positive (Negative); PH 6.5 (5.0-9.0); Specific Gravity - Urine 1.015 (1.005-1.025); UMIC TRIGGER UACC YES; Urine Blood Trace (Negative); Urine Ketones Negative (Negative); Urine Protein Negative (Neg-Trace)
[2022-12-22 10:58] LABS: Bacteria Urine 4+ (None Seen); Hyaline Casts Urine 0-2 /LPF (0-2); RBC Urine 0-2 /HPF (0-2); UACC Culture Trigger YES; WBC Urine >50 /HPF (0-5)
== END 2022-12-22 10:38 | disposition home or self-care (01) ==
LOC: HO.LNP 10:37
PROVIDERS: Visit Provider Internal Medicine
DX: D64.9 Anemia, unspecified (principal); R30.0 Dysuria
CPT/HCPCS: 81001; 87086; 87088; 87186

== ENCOUNTER → 2022-12-31 13:05 | Outpatient (BNVA) | payer MEDICARE, SELFPAY | PROVIDERS: PCP Internal Medicine; Referring Provider Internal Medicine; Visit Provider Internal Medicine | DX: Z01.810 Encounter for preprocedural cardiovascular examination (principal); I25.10 Atherosclerotic heart disease of native coronary artery without angina pectoris; J90 Pleural effusion, not elsewhere classified | CPT/HCPCS: 99212 ==

== ENCOUNTER 2023-01-14 06:28 | Day surgery (SDC) | payer MEDICARE, SELFPAY ==
--- NOTE | 2023-01-13 09:10 | HO.ANESPROP2 ---
Documented by User: Emily Irene NP 01/13/23 09:29 HPI - Anesthesia Eval Consult details Narrative: 72yo F for Upper Endoscopy and Colonoscopy Cardiac cleared PMFSH Active Problems Active Problems: All Active Problems (Updated 12/31/22 @ 13:44 by Narendra Noonan MD) Preoperative cardiovascular examination (Acute) Pleural effusion (Acute) Coronary artery calcification seen on CT scan (Acute) Chest pain (Acute) SOB (shortness of breath) (Acute) Fracture of distal end of fibula (Acute) Ankle pain (Acute) Past Medical History Medical History High cholesterol Family History Family History (Updated 12/16/22 @ 14:21 by Narendra Noonan MD) Father Myocardial infarction Mother Hx of CABG CHF (congestive heart failure) Surgical History Surgical History H/O: hysterectomy Social History Social History Alcohol intake: never Patient Tobacco Use Status: Never used Tobacco Use of substances other than those prescribed or required for medical reasons: No Are you DNR?: No Advance Directives: No Advance Directives Information Provided: Yes How much weight loss: 2-13 pounds Nutrition Risks: No Nutritional Risk Meds Allergies Allergy/AdvReac Type Severity Reaction Status Date / Time Penicillins [PENICILLINS] Allergy Intermediate HIVES Verified 12/31/22 13:07 sulfamethoxazole Allergy Unknown RASH Verified 12/31/22 13:07 [From Bactrim DS] trimethoprim Allergy Unknown RASH Verified 12/31/22 13:07 [From Bactrim DS] Home Medications Medication Instructions Recorded Confirmed Last Taken Type ranitidine HCl 300 mg tablet See Rx Instructions PO DAILY 12/31/22 01/14/23 Unknown History Exam Exam Date and Time: January 13, 2023 0910 Pertinent Lab Results Pertinent Lab Results: Laboratory Tests 12/21/22 12/21/22 15:49 15:49 WBC 9.1 Hgb 11.1 L Hct 35.1 L Plt Count 498 H D Sodium 137 Potassium 4.4 Chloride 99 Carbon Dioxide 23 BUN 16 Creatinine 0.73 Narrative Narrative: EKG 12/2022 Vent. Rate : 081 BPM ? ? Atrial Rate : 081 BPM ?? P-R Int : 126 ms? QRS Dur : 082 ms ? ? QT Int : 378 ms ? ? ? P-R-T Axes : 013 042 022 degrees ?? QTc Int : 439 ms ? Normal sinus rhythm Nonspecific ST abnormality Abnormal ECG When compared with ECG of 11-NOV-2011 16:04, T wave inversion now evident in Anterior leads coronary CTA 12/2022 intermediate grade disease in the LAD and RCA but nothing clearly obstructive ECHO 12/2022 Conclusions: - The left ventricular systolic function is normal.? The visually estimated ejection fraction is between 55-60%. ? - No obvious valvular pathology seen on this study.? ? ? US carotid duplex BI 10/2022 IMPRESSION: 1. RIGHT: Minimal, non-hemodynamically significant stenosis of the proximal right internal carotid artery corresponding to a 0-49% stenosis by velocity criteria. ? 2. LEFT: Minimal, non-hemodynamically significant stenosis of the proximal left internal carotid artery corresponding to a 0-49% stenosis by velocity criteria. ? 3. The category severity of disease is stable on the right and improved on the left compared to 11/14/2021. Assessment and Plan Assessment Anesthesia Assessment: Chart Reviewed Documented by User: John Araujo MD 01/14/23 07:20 [facility] Past Medical History Medical History High cholesterol Family History Family History (Updated 12/16/22 @ 14:21 by Narendra Noonan MD) Father Myocardial infarction Mother Hx of CABG CHF (congestive heart failure) Family history of problems with anesthesia: No Surgical History Surgical History H/O: hysterectomy History of Problems with Anesthesia: No Social History Social History Alcohol intake: never Patient Tobacco Use Status: Never used Tobacco Use of substances other than those prescribed or required for medical reasons: No Are you DNR?: No Advance Directives: No Advance Directives Information Provided: Yes How much weight loss: 2-13 pounds Nutrition Risks: No Nutritional Risk Meds Allergies Allergy/AdvReac Type Severity Reaction Status Date / Time Penicillins [PENICILLINS] Allergy Intermediate HIVES Verified 12/31/22 13:07 sulfamethoxazole Allergy Unknown RASH Verified 12/31/22 13:07 [From Bactrim DS] trimethoprim Allergy Unknown RASH Verified 12/31/22 13:07 [From Bactrim DS] Home Medications Medication Instructions Recorded Confirmed Last Taken Type ranitidine HCl 300 mg tablet See Rx Instructions PO DAILY 12/31/22 01/14/23 Unknown History Exam Airway Mallampati Class: II TM Dist: >3cm Neck ROM: Full Heart: rrr Lungs: cta Assessment and Plan Assessment Anesthesia Assessment: Anesthesia Plan Discussed and PAT Visit Final Anesthetic Review Family History of Problems with Anesthesia: No History of Problems with Anesthesia: No NPO: Yes ASA Class: III Final Preanesthetic Review: No Changes in Pt Med Stat, Meds/Allgs Chart Reviewed, Consent Obtained/Reviewed and Anes Risks/Benef Reviewed Patient Risk: Intermediate Procedure Risk: Intermediate Anesthetic Plan Anesthetic Plan: MAC: Disposition: Standard PACU
[2023-01-14 06:46] VITALS: BMI 23.7
[2023-01-14 06:50] VITALS: BP 145/70; PULSE 88; RESP 16; TEMP 36.1; O2SAT 98
[2023-01-14] MEDS: Lactated Ringers 1,000 ML 100 ML IVCONT (07:05)
[2023-01-14 08:40] VITALS: BP 115/65; PULSE 71; RESP 15; TEMP 36.4; O2SAT 99
--- NOTE | 2023-01-14 08:50 | PM.OP ---
Brief Operative Note Date of Service: 01/14/23 Pre-op diagnosis: Anemia Post-op diagnosis: other (Hiatal hernia, R/O celiac disease, Colon polyp) Surgeon: Estuardo Anna Anesthesia: MAC Was an Clinical Applications Specialist used for this Procedure?: No Estimated blood loss (mL): 2.0 Pathology: other (A. Descending duodenum B. EG Junction at 35cm C. Appendiceal orifice polyp) Condition: stable Disposition: PACU
[2023-01-14 08:55] VITALS: BP 127/64; PULSE 70; RESP 16; O2SAT 98
[2023-01-14 09:10] VITALS: BP 120/70; PULSE 71; RESP 18; TEMP 36.3; O2SAT 100
--- NOTE | 2023-01-14 11:38 | OP_ITS ---
DATE OF SERVICE: 01/14/2023 SURGEON: Estuardo Anna MD INDICATIONS: The patient presents for evaluation of iron-deficiency anemia. Full consent has been obtained from her for this, including risks of bleeding and perforation. PREOPERATIVE DIAGNOSIS: Iron-deficiency anemia. POSTOPERATIVE DIAGNOSIS: PROCEDURE PERFORMED: Esophagogastroduodenoscopy with biopsies, and colonoscopy to the cecum and terminal ileum with biopsy and removal of polyp. ESTIMATED BLOOD LOSS: COMPLICATIONS: ANESTHESIA: Monitored anesthesia care. ASSISTANTS: SPECIMENS: POSTOPERATIVE DIAGNOSES: Iron-deficiency anemia, hiatal hernia, rule out celiac disease, colon polyp, diverticulosis and internal hemorrhoids. DESCRIPTION OF PROCEDURE: The patient was placed in the left lateral decubitus position. The Olympus video gastroscope was passed in the posterior oropharynx and upper esophagus under direct visualization. Scope was passed slowly to the distal esophagus. The gastroesophageal junction appeared at 35 cm. There was some slight irregularity, consistent with reflux and possibly small, less than 1 cm areas of Phillips's mucosa. There was no esophagitis. The scope entered into the stomach. There was a small hiatal hernia. Scope was advanced to the pylorus and the duodenum was cannulated to the descending portion. The duodenum including the bulb appeared normal without mass or ulceration. Biopsies were obtained from the second and third portions of duodenum. Scope was withdrawn back in the stomach. The gastric antrum and body appeared normal with good peristalsis. Scope was retroflexed visualizing the proximal stomach carefully which appeared normal, without any sign of mass or ulceration. The scope was straightened and withdrawn back in the esophagus. Biopsies were obtained at the EG junction at 35 cm. Proximal to this, the esophageal mucosa appeared normal. The scope was withdrawn from the patient. She was turned around for the colonoscopy. The digital rectal exam revealed no abnormalities. The Olympus video pediatric colonoscope was entered into the rectum and advanced easily to the cecum. Once in the cecum, I did identify normal-appearing cecal pouch with appendiceal orifice and normal-appearing ileocecal valve. The appendiceal orifice, however, did show what appeared to be a less than 5 mm polyp which was grossly hyperplastic. Biopsies were obtained from it and basically removed it. The remainder of the cecum appeared normal. The terminal ileum was cannulated and appeared normal. The scope was withdrawn back in the colon. The scope was slowly withdrawn assessing all mucosal surfaces carefully. Preparation was excellent. I did not visualize any other polyps, colitis, nor angiodysplasia. There was a mild amount of sigmoid diverticulosis. In the rectum, the scope was retroflexed visualizing internal hemorrhoids, but no other pathology. Rectal mucosa appeared normal. Scope was straightened out and withdrawn from patient. She tolerated the procedure well and was returned to the recovery area in stable condition. IMPRESSION: 1. Hiatal hernia, gastroesophageal reflux. 2. Rule out celiac disease. 3. Appendiceal orifice polyp. 4. Diverticulosis. 5. Internal hemorrhoids. PLAN: The results of the pathology will be checked. She was advised to resume her iron and aspirin in one week. She presently feels well from a GI standpoint and I do not think she would need any further GI evaluation. She will follow up with her PCP regarding the previously elevated sed rate and C-reactive protein. I do not think that is related to any GI process at this point. Given her age and these minimal findings, I do not think she will need any further screening colonoscopies. MD ESTEFANI Garcia/DOLLY / [id number]
== END 2023-01-14 09:32 | disposition home or self-care (01) ==
PROVIDERS: PCP Internal Medicine; Visit Provider Internal Medicine
PROC: (CPT 45380; principal; 2023-01-14 07:30)
DX: D50.9 Iron deficiency anemia, unspecified (principal); R10.10 Upper abdominal pain, unspecified; K57.30 Diverticulosis of large intestine without perforation or abscess without bleeding; K63.5 Polyp of colon; K64.8 Other hemorrhoids; K21.9 Gastro-esophageal reflux disease without esophagitis; K44.9 Diaphragmatic hernia without obstruction or gangrene; I25.10 Atherosclerotic heart disease of native coronary artery without angina pectoris; Z88.0 Allergy status to penicillin; Z88.2 Allergy status to sulfonamides
CPT/HCPCS: 45380; 43239; 88305

== ENCOUNTER 2023-01-26 11:48 | Outpatient (REF) | payer MEDICARE, SELFPAY ==
--- NOTE | ~2023-01-26 | XR_ITS ---
EXAMINATION: XR CHEST CLINICAL INFORMATION: Pleural effusion, coronary artery disease. COMPARISON: CT abdomen 12/14/2022; chest radiographs 12/14/2022, 04/16/2021 TECHNIQUE: 2 views of the chest were obtained. FINDINGS: The small bibasilar effusions noted on prior exam 12/14/2022 are decreased. There is trace bilateral blunting of the costophrenic sulci. Again, there is mild hyperinflation. The lungs are clear and there is no vascular congestion or infiltrate or groundglass opacity. Heart size normal. The hilar and mediastinal contours and bony structures are unremarkable. XR/XR chest 2V IMPRESSION: - Trace bilateral effusions decreased from prior exam 12/14/2022. - Lungs clear.
--- NOTE | ~2023-01-26 | XR_ITS ---
EXAMINATION: XR SHOULDER, RIGHT CLINICAL INFORMATION: Pain. COMPARISON: None available. TECHNIQUE: AP external rotation, Grashey, scapular Y, and axillary views of the right shoulder. FINDINGS: There is reduction of glenohumeral joint space without periarticular spurring or loose bodies. Mild loss of right AC joint is seen as well. No visible acute fracture, dislocation or subluxation seen. XR/XR shoulder RT min 2V IMPRESSION: Mild degenerative changes of the right shoulder.
[2023-01-26 14:06] LABS: C Reactive Protein 0.19 mg/dL (< or = 0.50)
[2023-01-26 14:09] LABS: Erythrocyte Sedimentation Rate 32 MM/HR (0-20)
[2023-01-28 10:13] LABS: Lyme Abs Screen <0.90 index
== END 2023-01-26 11:49 | disposition home or self-care (01) ==
LOC: HO.XRAY 11:48
PROVIDERS: PCP Internal Medicine; Visit Provider Internal Medicine
DX: M25.511 Pain in right shoulder (principal); I26.99 Other pulmonary embolism without acute cor pulmonale; I25.10 Atherosclerotic heart disease of native coronary artery without angina pectoris; R03.0 Elevated blood-pressure reading, without diagnosis of hypertension
CPT/HCPCS: 36415; 71046; 73030; 82550; 85652; 86140; 86617; 86618

== ENCOUNTER → 2023-03-29 13:34 | Outpatient (BNVA) | payer MEDICARE, SELFPAY | PROVIDERS: PCP Internal Medicine; Referring Provider Internal Medicine; Visit Provider Internal Medicine | DX: I25.10 Atherosclerotic heart disease of native coronary artery without angina pectoris (principal); Z79.82 Long term (current) use of aspirin; Z79.899 Other long term (current) drug therapy | CPT/HCPCS: 99212 ==

== ENCOUNTER 2023-04-26 05:58 | Outpatient (REF) | payer MEDICARE, SELFPAY ==
[2023-04-26 06:09] LABS: MANUAL DIFF FLAG NO
[2023-04-26 07:21] LABS: Basophils Absolute Auto 0.1 X10*3/uL (0.0-0.2); Basophils Percent Auto 0.9 % (0-2); Eosinophils Absolute Auto 0.2 X10*3/uL (0.0-0.4); Eosinophils Percent Auto 2.7 % (0-4); Hematocrit 40.1 % (37.0-47.0); Imm Gran Abs Auto 0.02 X10*3/uL (0.00-0.03); Imm Gran Pct Auto 0.4 % (0.0-0.4); Lymphocytes Percent Auto 35.8 % (20-40); Mean Corpuscular HGB Conc 32.4 g/dl (31.0-35.0); Mean Corpuscular Volume 86.2 fL (80.0-98.0); Mean Platelet Volume 9.5 fL (9.4-12.3); Monocytes Absolute Auto 0.4 X10*3/uL (0.1-1.2); Monocytes Percent Auto 7.3 % (2-11); Neutrophils Absolute Auto 2.9 x10*3/uL (2.0-8.3); Neutrophils Percent Auto 52.9 % (45-73); Platelet Count 250 X10*3/uL (160-400); Red Blood Count 4.65 X10*6/uL (4.20-5.50); Red Cell Distribution Width 14.3 % (11.0-16.0); White Blood Count 5.5 X10*3/uL (4.8-10.8)
[2023-04-26 08:07] LABS: Alanine Aminotransferase 10 U/L (0-31); Albumin Level 3.9 g/dL (3.5-5.0); Alkaline Phosphatase 78 U/L (39-117); Anion Gap 11 (12-20); Aspartate Amino Transferase 13 U/L (5-31); Bilirubin Total 0.5 mg/dL (0.0-1.0); Blood Urea Nitrogen 13 mg/dL (9-16); C Reactive Protein 0.16 mg/dL (< or = 0.50); Calcium 9.4 mg/dL (8.4-10.2); Carbon Dioxide 28 mmol/L (22-29); Chloride 107 mmol/L (96-108); Cholesterol 140 mg/dL; Estimated Glomerular Filt Rate > 60; Glucose Fasting 94 mg/dL (60-99); HDL Cholesterol 44 mg/dL; Iron 91 mcg/dL (30-160); LDL Cholesterol Calculated 74 mg/dl; Percent Iron Saturation 34 % (15-50); Potassium 4.3 mmol/L (3.3-5.1); Sodium 142 mmol/L (135-145); Total Iron Binding Capacity 265 mcg/dL (228-428); Total Protein 7.1 g/dL (6.5-8.0); Triglycerides 112 mg/dL; Unsaturated Iron Binding 174 ug/dL
[2023-04-26 08:20] LABS: Erythrocyte Sedimentation Rate 16 MM/HR (0-20)
== END 2023-04-26 05:59 | disposition home or self-care (01) ==
LOC: HO.LAB 05:58
PROVIDERS: PCP Internal Medicine; Visit Provider Internal Medicine
DX: D64.9 Anemia, unspecified (principal); E78.00 Pure hypercholesterolemia, unspecified; I10 Essential (primary) hypertension
CPT/HCPCS: 36415; 80053; 80061; 82550; 83540; 85025; 85652; 86140

== ENCOUNTER 2023-07-28 10:06 | Outpatient (REF) | payer MEDICARE, SELFPAY ==
--- NOTE | ~2023-07-28 | XR_ITS ---
EXAMINATION: XR KNEE, LEFT CLINICAL INFORMATION: Pain. COMPARISON: None available. TECHNIQUE: AP, lateral, tunnel, and sunrise views of the left knee. FINDINGS: There is mild bony demineralization. The lateral, medial and patellofemoral joint space compartments are well-maintained. There is tricompartment peripheral osteophyte formation. No fracture or dislocation is seen. There is a small joint effusion. No foreign body is seen. There are femoral atherosclerotic calcifications. XR/XR knee LT 4V IMPRESSION: 1. 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 2. There is a small left knee joint effusion. 3. No fracture or dislocation is seen.
== END 2023-07-28 10:07 | disposition home or self-care (01) ==
LOC: HO.XRAY 10:06
PROVIDERS: PCP Internal Medicine; Visit Provider Internal Medicine
DX: M25.562 Pain in left knee (principal)
CPT/HCPCS: 73564

== ENCOUNTER 2023-10-12 08:38 | Outpatient (REF) | payer MEDICARE, SELFPAY | END 2023-10-12 08:39 | disposition home or self-care (01) | LOC: HO.MAMMO 08:38 | PROVIDERS: PCP Internal Medicine; Visit Provider Internal Medicine | DX: Z12.31 Encounter for screening mammogram for malignant neoplasm of breast (principal) | CPT/HCPCS: 77063; 77067 ==

== ENCOUNTER → 2023-10-12 09:00 | Outpatient (BNV) | payer MEDICARE, SELFPAY | PROVIDERS: PCP Internal Medicine; Visit Provider Radiology Diagnostic Radiology | DX: Z12.31 Encounter for screening mammogram for malignant neoplasm of breast (principal) | CPT/HCPCS: 77063; 77067 ==

== ENCOUNTER 2023-11-08 06:04 | Outpatient (REF) | payer MEDICARE, SELFPAY ==
[2023-11-08 06:26] LABS: MANUAL DIFF FLAG NO
[2023-11-08 07:45] LABS: Appearance Urine Clear; Color Urine Yellow; Glucose Urine UA Negative (Negative); Leukocyte Esterase Urine Negative (Negative); Nitrite Urine Negative (Negative); PH 5.5 (5.0-9.0); Specific Gravity - Urine 1.015 (1.005-1.025); Urine Blood Negative (Negative); Urine Ketones Negative (Negative); Urine Protein Negative (Neg-Trace)
[2023-11-08 07:46] LABS: Basophils Percent Auto 0.7 % (0-2); Eosinophils Absolute Auto 0.2 X10*3/uL (0.0-0.4); Eosinophils Percent Auto 4.1 % (0-4); Hemoglobin 12.5 g/dl (12.0-16.0); Lymphocytes Absolute Auto 1.7 X10*3/uL (1.2-4.9); Lymphocytes Percent Auto 30.6 % (20-40); Mean Corpuscular HGB Conc 33.8 g/dl (31.0-35.0); Mean Corpuscular Hemoglobin 29.8 pg (27.0-33.0); Mean Corpuscular Volume 88.1 fL (80.0-98.0); Mean Platelet Volume 9.2 fL (9.4-12.3); Monocytes Absolute Auto 0.4 X10*3/uL (0.1-1.2); Monocytes Percent Auto 7.6 % (2-11); Neutrophils Absolute Auto 3.1 x10*3/uL (2.0-8.3); Platelet Count 286 X10*3/uL (160-400); Red Cell Distribution Width 13.3 % (11.0-16.0); White Blood Count 5.4 X10*3/uL (4.8-10.8)
[2023-11-08 08:19] LABS: Alanine Aminotransferase 11 U/L (0-31); Albumin Level 3.7 g/dL (3.5-5.0); Alkaline Phosphatase 71 U/L (39-117); Anion Gap 12 (12-20); Aspartate Amino Transferase 16 U/L (5-31); Bilirubin Total 0.4 mg/dL (0.0-1.0); Blood Urea Nitrogen 18 mg/dL (9-16); Calcium 9.1 mg/dL (8.4-10.2); Carbon Dioxide 26 mmol/L (22-29); Chloride 105 mmol/L (96-108); Cholesterol 214 mg/dL (<200); Estimated Glomerular Filt Rate > 60; Glucose Fasting 90 mg/dL (60-99); HDL Cholesterol 46 mg/dL (>40); LDL Cholesterol Calculated 153 mg/dL (<100); Potassium 4.2 mmol/L (3.3-5.1); Sodium 139 mmol/L (135-145); Triglycerides 78 mg/dL (<150)
[2023-11-08 08:42] LABS: Vitamin D 25-OH Total 38.8 ng/mL (>30)
== END 2023-11-08 06:05 | disposition home or self-care (01) ==
LOC: HO.LAB 06:04
PROVIDERS: PCP Internal Medicine; Referring Provider Internal Medicine; Visit Provider Internal Medicine
DX: I10 Essential (primary) hypertension (principal); E78.00 Pure hypercholesterolemia, unspecified; K21.9 Gastro-esophageal reflux disease without esophagitis; M19.90 Unspecified osteoarthritis, unspecified site; R30.0 Dysuria; M85.80 Other specified disorders of bone density and structure, unspecified site
CPT/HCPCS: 36415; 80053; 80061; 81003; 82306; 85025; 87086

== ENCOUNTER 2023-11-10 12:16 | Outpatient (REF) | payer MEDICARE, SELFPAY ==
[2023-11-10 12:40] LABS: MANUAL DIFF FLAG NO
[2023-11-10 12:56] LABS: Basophils Percent Auto 0.3 % (0-2); Eosinophils Percent Auto 0.7 % (0-4); Hemoglobin 12.8 g/dl (12.0-16.0); Imm Gran Abs Auto 0.02 X10*3/uL (0.00-0.03); Imm Gran Pct Auto 0.3 % (0.0-0.4); Lymphocytes Absolute Auto 0.4 X10*3/uL (1.2-4.9); Lymphocytes Percent Auto 6.3 % (20-40); Mean Corpuscular HGB Conc 33.7 g/dl (31.0-35.0); Mean Corpuscular Hemoglobin 29.8 pg (27.0-33.0); Mean Corpuscular Volume 88.6 fL (80.0-98.0); Mean Platelet Volume 9.2 fL (9.4-12.3); Monocytes Absolute Auto 0.2 X10*3/uL (0.1-1.2); Monocytes Percent Auto 3.7 % (2-11); Neutrophils Absolute Auto 5.2 x10*3/uL (2.0-8.3); Neutrophils Percent Auto 88.7 % (45-73); Platelet Count 270 X10*3/uL (160-400); Red Blood Count 4.29 X10*6/uL (4.20-5.50); Red Cell Distribution Width 13.3 % (11.0-16.0); White Blood Count 5.9 X10*3/uL (4.8-10.8)
[2023-11-10 13:34] LABS: Erythrocyte Sedimentation Rate 42 MM/HR (0-20)
[2023-11-10 14:00] LABS: Rheumatoid Factor < 13.0 IU/mL (<15.0)
[2023-11-10 14:05] LABS: Alanine Aminotransferase 13 U/L (0-31); Albumin Level 3.9 g/dL (3.5-5.0); Alkaline Phosphatase 73 U/L (39-117); Anion Gap 13 (12-20); Aspartate Amino Transferase 18 U/L (5-31); Bilirubin Total 0.4 mg/dL (0.0-1.0); Blood Urea Nitrogen 17 mg/dL (9-16); C Reactive Protein 5.59 mg/dL (< or = 0.50); Calcium 9.5 mg/dL (8.4-10.2); Carbon Dioxide 25 mmol/L (22-29); Chloride 103 mmol/L (96-108); Estimated Glomerular Filt Rate > 60; Glucose Random 104 mg/dL (60-115); Sodium 137 mmol/L (135-145); Total Protein 7.2 g/dL (6.5-8.0)
[2023-11-11 18:24] LABS: Antibody to SS-A Antigen <1.0 NEG AI (<1.0 NEG); Antibody to SS-B Antigen <1.0 NEG AI (<1.0 NEG)
[2023-11-12 12:28] LABS: Cyclic Citrullinated Peptide <16 UNITS
[2023-11-14 10:04] LABS: Anti Nuclear Antibody Screen NEGATIVE (NEGATIVE)
== END 2023-11-10 12:17 | disposition home or self-care (01) ==
LOC: HO.LAB 12:16
PROVIDERS: PCP Internal Medicine; Visit Provider Internal Medicine
DX: M25.50 Pain in unspecified joint (principal); M79.89 Other specified soft tissue disorders; I10 Essential (primary) hypertension
CPT/HCPCS: 36415; 80053; 82550; 85025; 85652; 86038; 86140; 86200; 86235; 86431

== ENCOUNTER 2023-11-12 07:59 | Outpatient (REF) | payer MEDICARE, SELFPAY ==
--- NOTE | ~2023-11-12 | MM_ITS ---
EXAMINATION: BONE DENSITOMETRY CLINICAL INDICATION: Menopause. COMPARISON: Previous BD dated 08/27/2020 and baseline BD dated 01/12/2012. TECHNIQUE: Using a [employer] DXA System (software version: 13.1) manufactured by [employer], dual-energy x-ray absorptiometry was performed of the lumbar spine and left hip. The images are of good technical quality. Summary results are attached. FINDINGS: LEFT FEMUR, NECK: Current: BMD 0.652 g/cm2, Z-score -0.9, T-score -2.8, osteoporosis. Prior: BMD 0.819 g/cm2. Baseline: BMD 0.862 g/cm2. LEFT FEMUR, TOTAL: Current: BMD 0.678 g/cm2, Z-score -0.9, T-score -2.6, osteoporosis, 23.7% decrease from previous, 26.1% decrease from baseline (<5% change is not significant). Prior: BMD 0.889 g/cm2. Baseline: BMD 0.917 g/cm2. AP SPINE L1-L4: Current: BMD 0.919 g/cm2, Z-score -0.3, T-score -2.2, osteopenia, 2.3% decrease from previous, 15.8% decrease from baseline (<5% change is not significant). Prior: BMD 0.941 g/cm2. Baseline: BMD 1.091 g/cm2. IDENTIFIED RISK FACTORS: Early menopause, history of fracture (adult), hysterectomy, secondary osteoporosis. HISTORY OF FRACTURE: Other. MEDICATIONS: None listed. MM/XR DEXA axial skeleton IMPRESSION: 1. DIAGNOSIS: Osteoporosis based on the lowest T-score value of -2.8 in the femoral neck applying World Health Organization criteria. 2. 10-YEAR FRACTURE RISK PREDICTION, FRAX: According to the guidelines, FRAX calculation should only be performed on patients in the osteopenia bone density category. Therefore, FRAX was not performed on this patient. 3. Treatment Recommendations: NOF guidelines recommend consideration for treatment in postmenopausal women and men age 50 and older presenting with the following: -A hip or vertebral (clinical or morphometric) fracture. -T-score less than or equal to -2.5 at the femoral neck or spine after appropriate evaluation to exclude secondary causes. -Low bone mass at the hip or spine and a 10-year fracture probability by FRAX of greater than or equal to 3% for hip fracture or greater than or equal to 20% for major osteoporotic fracture based on the [place] adapted WHO algorithm. 4. Other Recommendations: All treatment decisions require clinical judgment and consideration of individual patient factors, including patient preferences, comorbidities, previous drug use, risk factors not captured in the FRAX model (e.g. frailty, falls, vitamin D deficiency, increased bone turnover, interval significant decline in bone density) and possible under or overestimation of fracture risk by FRAX. Additional medical evaluation for secondary cause of low bone mineral density may be appropriate. FUTURE SCAN RECOMMENDATION: People with diagnosed cases of osteoporosis or at high risk for fracture should have regular bone mineral density tests. For patients eligible for Medicare, routine testing is allowed once every 2 years. The testing frequency can be increased to one year for patients who have rapidly progressing disease, those who are receiving or discontinuing medical therapy to restore bone mass, or have additional risk factors.
== END 2023-11-12 08:00 | disposition home or self-care (01) ==
LOC: HO.MAMMO 07:59
PROVIDERS: PCP Internal Medicine; Visit Provider Internal Medicine
DX: Z13.820 Encounter for screening for osteoporosis (principal); Z78.0 Asymptomatic menopausal state
CPT/HCPCS: 77080

== ENCOUNTER 2023-12-02 14:47 | Outpatient (REF) | payer MEDICARE, SELFPAY ==
--- NOTE | ~2023-12-02 | US_ITS ---
EXAMINATION: US EXTRACRANIAL CAROTID DUPLEX, BILATERAL CLINICAL INFORMATION: Carotid stenosis. COMPARISON: Carotid ultrasound 11/03/2022. TECHNIQUE: Real-time ultrasound and Doppler techniques (integrating B-mode 2-D vascular images, Doppler spectral analysis and color-flow Doppler imaging) were utilized to interrogate the extracranial carotid arteries, the vertebral arteries and proximal subclavian arteries bilaterally. The degree of stenosis is determined by criteria similar to NASCET. FINDINGS: Right Side: 1. There is mild atherosclerotic plaque seen in the bifurcation/proximal ICA region. 2. The common carotid artery PSV proximally is 140 cm/s and distally 118 cm/s. 3. The proximal internal carotid artery velocities are 121 cm/s systolic and 30 cm/s diastolic. 4. The proximal external carotid artery PSV is 178 cm/s. 5. The vertebral artery shows antegrade flow. 6. The subclavian artery waveforms are normal. Left Side: 1. There is mild atherosclerotic plaque seen in the bifurcation/proximal ICA region. 2. The common carotid artery PSV proximally is 179 cm/s and distally 111 cm/s. 3. The proximal internal carotid artery velocities are 151 cm/s systolic and 33 cm/s diastolic. 4. The proximal external carotid artery PSV is 173 cm/s. 5. The vertebral artery shows antegrade flow. 6. The subclavian artery waveforms are normal. US/US carotid duplex BI IMPRESSION: 1. RIGHT: Minimal, non-hemodynamically significant stenosis of the proximal right internal carotid artery corresponding to a 0-49% stenosis by velocity criteria. 2. LEFT: Minimal, non-hemodynamically significant stenosis of the proximal left internal carotid artery corresponding to a 0-49% stenosis by velocity criteria. 3. There is no change in the category severity of disease when compared to the previous study dated 11/03/2022.
== END 2023-12-02 14:48 | disposition home or self-care (01) ==
LOC: HO.US 14:47
PROVIDERS: PCP Internal Medicine; Visit Provider Internal Medicine
DX: I65.22 Occlusion and stenosis of left carotid artery (principal)
CPT/HCPCS: 93880

== ENCOUNTER 2024-03-30 08:01 | Outpatient (AMB) | payer MEDICARE, SELFPAY ==
[2024-03-30 08:27] VITALS: BP 104/62; PULSE 70; BMI 23.8
--- NOTE | 2024-03-30 08:27 | MHC.OFFVIS ---
Vital Signs 03/30/24 08:27 Height 5 ft 3 in Weight 134 lb 7.712 oz BMI 23.8 BP 104/62 Blood Pressure Location Lt brachial Position Sitting Pulse 70 Pulse Source Monitor Intake Visit Reasons: 6 MON FUP Reduction Furnace Operator Required: No Accompanied by: Self / Same As Patient Allergies Penicillins [PENICILLINS] Allergy (Intermediate, Verified 03/29/23 13:37) HIVES sulfamethoxazole [From Bactrim DS] Allergy (Unknown, Verified 03/29/23 13:37) RASH trimethoprim [From Bactrim DS] Allergy (Unknown, Verified 03/29/23 13:37) RASH atorvastatin Adverse Reaction (Severe, Verified 09/21/23 10:23) Muscle Pain Pravastatin Adverse Reaction (Severe, Uncoded 09/21/23 10:23) Muscle Pain Medication List - Last Reconciled 03/30/24 by Narendra Noonan MD alendronate 70 mg PO QWEEK aspirin (Adult Aspirin Regimen) 81 mg PO DAILY atorvastatin 40 mg PO DAILY ibuprofen 600 mg (0.75 x 800 mg) PO Q8H PRN lisinopril 5 mg PO DAILY methotrexate sodium 20 mg PO QWEEK ranitidine HCl orally daily; HPI Comments Details: Felisha returns for follow-up regarding coronary artery disease. Overall, she states she is feeling good. No new complaints. No anginal-type symptoms or in fact anything cardiac sounding. PFSH Medical History High cholesterol Surgical History H/O: hysterectomy Family History Father Myocardial infarction Mother Hx of CABG CHF (congestive heart failure) Social History Alcohol intake: never Patient Tobacco Use Status: Never used Tobacco Review of Systems Const Denies chills, Denies fatigue, Denies fever(s), Denies frequent falls, Denies weakness, Denies weight gain and Denies weight loss ENT Denies dizziness Card Denies chest pain, Denies leg edema, Denies lightheadedness, Denies palpitations, Denies dyspnea and Denies dyspnea on exertion Resp Denies cough, Denies dyspnea and Denies dyspnea on exertion GI Denies hematochezia Musc Denies abnormal gait, Denies muscle weakness, Denies numbness, Denies radiating pain into limb and Denies tingling Neuro Denies abnormal gait, Denies dizziness, Denies frequent falls, Denies numbness, Denies tingling and Denies weakness Endo Denies fatigue and Denies palpitations Physical Exam Vital Signs: Last Vital Signs Pulse 70 03/30/24 08:27 BP 104/62 03/30/24 08:27 BMI result Body Mass Index 23.8 Const General: comfortable and no acute distress Orientation/consciousness: patient oriented x3 HEENT Other: Unremarkable Head: Yes normal to inspection Neck Neck: Yes normal visual inspection Chest Chest palpation & inspection: normal inspection of the chest Resp Auscultation: clear to auscultation bilaterally Cardio Palpation: normal PMI Heart sounds: S1 normal heart sound present, S2 normal heart sound present, no gallops, no murmurs and no rubs GI Palpation (GI): Soft to palpation Back/Spine/Pelvis Other: unremarkable Skin General skin exam: no rashes or lesions noted Neuro General: patient oriented x3 Extrem General: Yes normal to inspection Psych Mental Status: mental status grossly normal Office Procedures EKG Details: EKG with sinus rhythm at 70/Min; premature supraventricular complexes; low voltage QRS; [place]. [address]-Llwyksprtucjmfefu, Complete Assessment & Plan Assessment & Plan (1) Coronary artery calcification seen on CT scan: Code(s): I25.10 - Atherosclerotic heart disease of [place] coronary artery without angina pectoris Category: Medical Plan Cardiac studies reviewed. In the echocardiogram, LVEF 55-60%. No wall motion abnormalities and otherwise unremarkable. Slightly diminished global longitudinal strain. In the coronary CTA, she had intermediate grade disease in the LAD and RCA but nothing clearly obstructive. Continue aspirin and statins. For blood pressure, she is on lisinopril. Well controlled. With regard to cholesterol, last LDL is 153 mg/dL. Now that she is back on statins can recheck. There was insurance issue with heriber[place]agi in the past. Total time spent including review of data, counseling, documentation, coordination of care-31 minutes. Orders: Orders Lipid Panel Today E78.5 - Hyperlipidemia, unspecified LDL Cholesterol Direct Today E78.2 - Mixed hyperlipidemia Liver Panel Today I25.10 - Atherosclerotic heart disease of [place] coronary artery without angina pectoris Coding Level of Care Code Est Pt Level 4 (35428) Diagnoses Coronary artery calcification seen on CT scan I25.10 CPT Codes EKG - CPT: 43825-Gldtirzqxuouhguht, Complete ([id number])
--- OUTSIDE RECORDS SUMMARY | 2024-03-30 08:44 | XMS_ITS | Continuity of Care Document ---
Author Organization [facility] Address [address] [place] [address] [address], [address] [place] [address]- Care Team Providers Care Yard General Car Supervisor Name Role Phone Not on Staff, PCP Primary Care Physician Unavail able Encounter [facility] Date(s): 12/05/21 - 01/04/22 [facility] [address] [place] [address], [address] [place], [place] [address] Immunizations Given and Recorded Vaccine Date Status Refusal Reason SARS-CoV-2 (COVID-19) mRNA-1273 vaccine 12/29/20 G iven SARS-CoV-2 (COVID-19) mRNA-1273 vaccine 12/01/20 G iven
--- OUTSIDE RECORDS SUMMARY | 2024-03-30 08:44 | XMS_ITS | Patient Health Record ---
Author Organization [facility] Address [address] [place] [address] Care Team Providers Care Clearing Inspector Name Role Phone Bert La MD Primary Care Provider Estuardo Morris Unavailable [phone] ALLERGIES Allergen (clinical drug ingredient) Drug/Non Drug Allergy documented on EMR Reaction Allergy Type Onset Date Status fentanyl Fentanyl vomiting Drug Allergy Active sulfamethoxazole / trimethoprim Bactrim Unknown Drug Allergy Active REASON FOR REFERRAL No Information MEDICATIONS Medication SIG (Take, Route, Frequency, Duration) Notes Start Date End Date Status Lipitor 40 MG 1 tablet Orally Once a day Active Omeprazole 20 MG TAKE ONE CAPSULE BY MOUTH EVERY MORNING Orally Once a day for 90 days Not-Taking Zantac 360 10 MG 1 tablet as needed Orally Twice a day Active Iron (Ferrous Sulfate) 325 (65 Fe) MG 1 tablet Orally Once a day for 30 day(s) Active Metamucil Fiber - as directed Orally Active IMMUNIZATIONS Vaccine Route Administration Date Status Comme nts Influenza Unknown 07/21/2022 Administered SOCIAL HISTORY Sex Assigned At : Social History Observation Description Sex Assigned At Unknown PROBLEMS Problem Type ICD Code Onset Dates Problem Status W/U Status Risk SNOMED Code Notes Problem Diverticulosis of large intestine without perforation or abscess without bleeding (K57.30) Active confirmed Diverticul ar disease of colon (773821329) Problem Gastroesophageal reflux disease (K21.9) Active confirmed Gastroesophagea l reflux disease (005926342) Problem Iron deficiency anemia (D50.9) Active confirmed Iron deficien cy anemia (59457808) Problem Hiatal hernia (K44.9) Active confirmed 64635737 Problem GERD with esophagitis (K21.0) Active confirmed 784576055 Problem Iron deficiency anemia, unspecified iron deficiency anemia type (D50.9) Active confirmed 01153493 Problem Upper abdominal pain (R10.10) Active confirmed 01817471 PLAN OF TREATMENT Future Test Test Name Order Date UPPER GI ENDOSCOPY 08/10/2014 COLONOSCOPY 08/10/2014 UPPER GI ENDOSCOPY 12/31/2022 COLONOSCOPY 12/31/2022 Insurance Providers Payer Name Payer Address Payer Phone Subscriber Number Group Number Insured Name Patient Relationship to Insured Coverage Start Date Coverage End Date MEDICARE OF [place] [address] [place] [id number] ERNIE CARABALLO Self - patient is the insured MEDEX ATTN CLAIMS [address] [place] [address] [id number] ERNIE CARABALLO Self - patient is the insured MEDICAL (GENERAL) HISTORY Medical History History ICD Code Colonoscopy 10-19-2003--only internal hem orrhoids Hyperlipidemia Denies [place],DM,CVA,Lung disease,renal dise ase GERD-upper endoscopy in 2014 revealed a small hiatal hernia, reflux esophagitis, and mild gastritis--biopsies were negative for H. pylori and Phillips's esophagus-she was started on omeprazole at that time with good relief Screening colonoscopy in Jan was negative other than some sigmoid diverticulosis, and internal and external hemorrhoids--she did have an adverse reaction to the sedation of fentanyl and Versed, with post procedure vomiting and nausea Anemia--low iron saturation but Hemoccul t negative stool in December [address] Noonan 12/21 22 revealed a normal echocardiogram. Negative CT scan and ultrasound of the a bdomen 12/2022 Surgical History Surgery Date(Month/Year) Hysterectomy and appy Cataract and lens implants for both eyes
--- OUTSIDE RECORDS SUMMARY | 2024-03-30 08:44 | XMS_ITS | Continuity of Care Document ---
Author Organization [facility] Address [address] [place] [address] [address], [address] [place] [address]- Care Team Providers Care Telephone Switchboard Operator Name Role Phone Bert La MD Primary Care Physician [place] [facility] [place] 01/[place]/22 [facility] [address] [place] [address], [address] [place] [address]- Attending Physician: Luis Portillo MD Referring Physician: Bert La MD Allergies, Adverse Reactions, Alerts Substance Reaction Severity Status sulfADIAZINE Active penicillins Active Immunizations Given and Recorded Vaccine Date Status Refusal Reason SARS-CoV-2 (COVID-19) mRNA-1273 vaccine 12/29/20 G iven SARS-CoV-2 (COVID-19) mRNA-1273 vaccine 12/01/20 G iven Medications aspirin 81 mg oral capsule 4 capsule = 324 mg, By Mouth, Every 4 hours, 0 Refills, Maintenance, 01/15/22 9:57:00 EDT, Partial fill upon patient request if the prescription is for a schedule II opioid drug. Start Date: 01/15/22 Status: Ordered atorvastatin 20 mg oral tablet 1 tablet = 20 mg, By Mouth, Daily, 0 Refills, Maintenance, 01/15/22 9:58:00 EDT, Partial fill upon patient request if the prescription is for a schedule II opioid drug. Start Date: 01/15/22 Status: Ordered Citracal Caplets Plus D By Mouth, 2 times a day, 0 Refills, Maintenance, 01/15/22 9:58:00 EDT, Partial fill upon patient request if the prescription is for a schedule II opioid drug. Start Date: 01/15/22 Status: Ordered Cyclobenzaprine By Mouth, 0 Refills, Maintenance, 01/15/22 9:59:00 EDT, Partial fill upon patient request if the prescription is for a schedule II opioid drug. Start Date: 01/15/22 Status: Ordered Vital Signs Most recent to oldest [Reference Range]: 1 Height 160 cm (01/15/22 9:52 AM) Weight 65 kg (01/15/22 9:52 AM) Body Mass Index [18.5-24.99] 25.39 *H* (01/15/22 9:52 AM)
--- OUTSIDE RECORDS SUMMARY | 2024-03-30 08:44 | XMS_ITS | Continuity of Care Document ---
Author Organization [facility] Address [address] [place] [address] [address], [address] [place] [address]- Care Team Providers Care Sports Book Writer Name Role Phone Bert La MD Primary Care Physician [phone] [place] [facility] [place] [id number] Date(s): 01/15/22 - 02/14/22 [facility] [address] [place] [address], [address] [place], [place] [address] Attending Physician: Admtr, Ar8 Admitting Physician: Admtr, Ar8 Referring Physician: Admtr, Ar8 Allergies, Adverse Reactions, Alerts Substance Reaction Severity [...]
--- OUTSIDE RECORDS SUMMARY | 2024-03-30 08:44 | XMS_ITS | Continuity of Care Document ---
Author Organization [facility] Address [address] [place] [address] [address], [address] [place] [address]- Care Team Providers Care Lump Room Supervisor Name Role Phone Not on Staff, PCP Primary Care Physician Unavail able Encounter [facility] Date(s): 11/28/21 - 12/28/21 [facility] [address] [place] [address], [address] [place], [place] [address] Immunizations Given and Recorded Vaccine Date Status Refusal Reason SARS-CoV-2 (COVID-19) mRNA-1273 vaccine 12/29/20 G iven SARS-CoV-2 (COVID-19) mRNA-1273 vaccine 12/01/20 G iven
== END 2024-03-30 08:56 | disposition home or self-care (01) ==
LOC: HO.HCS 08:01
PROVIDERS: PCP Internal Medicine; Visit Provider Internal Medicine
DX: I25.10 Atherosclerotic heart disease of native coronary artery without angina pectoris (principal)
CPT/HCPCS: 93010; 99214

== ENCOUNTER → 2024-03-30 08:01 | Outpatient (BNVA) | payer MEDICARE, SELFPAY | PROVIDERS: PCP Internal Medicine; Visit Provider Internal Medicine | DX: I25.10 Atherosclerotic heart disease of native coronary artery without angina pectoris (principal) | CPT/HCPCS: 93005; 99212 ==

== ENCOUNTER 2024-06-01 06:05 | Outpatient (REF) | payer MEDICARE, SELFPAY ==
[2024-06-01 08:29] LABS: Alanine Aminotransferase 16 U/L (0-31); Alkaline Phosphatase 48 U/L (39-117); Aspartate Amino Transferase 18 U/L (5-31); Bilirubin Direct 0.1 mg/dL (0.0-0.5); Bilirubin Total 0.4 mg/dL (0.0-1.0); Cholesterol 137 mg/dL (<200); HDL Cholesterol 46 mg/dL (>40); LDL Cholesterol Calculated 79 mg/dL (<100); Total Protein 6.7 g/dL (6.5-8.0); Triglycerides 63 mg/dL (<150)
[2024-06-02 22:29] LABS: LDL Cholesterol Direct 80 mg/dL (<100)
== END 2024-06-01 06:06 | disposition home or self-care (01) ==
LOC: HO.LAB 06:05
PROVIDERS: PCP Internal Medicine; Referring Provider Internal Medicine; Visit Provider Internal Medicine
DX: E78.5 Hyperlipidemia, unspecified (principal); I25.10 Atherosclerotic heart disease of native coronary artery without angina pectoris; E78.2 Mixed hyperlipidemia
CPT/HCPCS: 36415; 80061; 80076; 83721

== ENCOUNTER 2024-09-19 06:07 | Outpatient (REF) | payer MEDICARE, SELFPAY ==
--- OUTSIDE RECORDS SUMMARY | 2024-09-19 06:09 | XMS_ITS | Continuity of Care Document ---
Author Organization [facility] Address [address] [place] [address] [address] [place] [address] Phone Care Team Providers Care Aircraft Painter Name Role Phone No Information Unavailable Unavailable Advance Directives Directive Yes / No Effective Date File Name No Information Encounters Encounter Description Practice Location Reason(s) For Visit Diagnoses Date Provider Providers Copied on Encounter [facility], [address] [place] [address] [address], [place], [id number], [place] tel:[phone] [facility] [place] No Information No Information Family History Family [...]
--- OUTSIDE RECORDS SUMMARY | 2024-09-19 06:09 | XMS_ITS | Patient Health Record ---
Author Organization [facility] Address [address] [place] [address] Care Team Providers Care Hog Worker Name Role Phone Bert La MD Primary Care Provider Estuardo Morris Unavailable [phone] ALLERGIES Allergen (clinical drug ingredient) Drug/Non Drug [...] Active confirmed Diverticul ar disease of colon (422611142) Problem Gastroesophageal reflux disease (K21.9) Active confirmed Gastroesophagea l reflux disease (675681783) Problem Iron deficiency anemia (D50.9) Active confirmed Iron deficien cy anemia (58284981) Problem Hiatal hernia (K44.9) Active confirmed 89765162 Problem GERD with esophagitis (K21.0) Active confirmed 318683485 Problem Iron deficiency anemia, unspecified iron deficiency anemia type (D50.9) Active confirmed 20783440 Problem Upper abdominal pain (R10.10) Active confirmed 84353176 PLAN OF TREATMENT Future Test Test Name Order Date UPPER GI ENDOSCOPY 08/10/2014 COLONOSCOPY 08/10/2014 UPPER GI ENDOSCOPY 12/31/2022 COLONOSCOPY 12/31/2022 Insurance Providers Payer Name Payer Address Payer Phone Subscriber Number Group Number Insured Name Patient Relationship to Insured Coverage Start Date Coverage End Date [place]ARE OF [place] [address] [place] [address] [id number] ERNIE CARABALLO Self - patient is the insured MEDEX ATTN CLAIMS [address] [place] [address] [id number] ERNIE CARABALLO Self - patient is the insured MEDICAL (GENERAL) HISTORY Medical History History ICD Code Colonoscopy 10-19-2003--only internal hem orrhoids Hyperlipidemia Denies [place],DM,CVA,Lung disease,renal dise ase GERD-upper endoscopy in 2014 [...]
[2024-09-19 06:21] LABS: MANUAL DIFF FLAG NO
[2024-09-19 07:16] LABS: Basophils Absolute Auto 0.1 X10*3/uL (0.0-0.2); Eosinophils Absolute Auto 0.2 X10*3/uL (0.0-0.4); Eosinophils Percent Auto 3.2 % (0-4); Hematocrit 37.4 % (37.0-47.0); Hemoglobin 12.5 g/dl (12.0-16.0); Imm Gran Abs Auto 0.01 X10*3/uL (0.00-0.03); Imm Gran Pct Auto 0.2 % (0.0-0.4); Lymphocytes Absolute Auto 1.8 X10*3/uL (1.2-4.9); Lymphocytes Percent Auto 36.1 % (20-40); Mean Corpuscular HGB Conc 33.4 g/dl (31.0-35.0); Mean Corpuscular Hemoglobin 31.6 pg (27.0-33.0); Mean Corpuscular Volume 94.7 fL (80.0-98.0); Mean Platelet Volume 9.7 fL (9.4-12.3); Monocytes Absolute Auto 0.4 X10*3/uL (0.1-1.2); Neutrophils Absolute Auto 2.6 x10*3/uL (2.0-8.3); Neutrophils Percent Auto 51.5 % (45-73); Platelet Count 241 X10*3/uL (160-400); Red Blood Count 3.95 X10*6/uL (4.20-5.50); Red Cell Distribution Width 13.8 % (11.0-16.0)
[2024-09-19 07:50] LABS: Alanine Aminotransferase 43 U/L (0-31); Alkaline Phosphatase 52 U/L (39-117); Anion Gap 11 (12-20); Aspartate Amino Transferase 31 U/L (5-31); Bilirubin Total 0.5 mg/dL (0.0-1.0); Blood Urea Nitrogen 18 mg/dL (9-16); Calcium 8.9 mg/dL (8.4-10.2); Carbon Dioxide 27 mmol/L (22-29); Chloride 107 mmol/L (96-108); Cholesterol 144 mg/dL (<200); Estimated Glomerular Filt Rate > 60; Glucose Fasting 94 mg/dL (60-99); HDL Cholesterol 46 mg/dL (>40); LDL Cholesterol Calculated 85 mg/dL (<100); Potassium 4.6 mmol/L (3.3-5.1); Sodium 140 mmol/L (135-145); Total Protein 6.8 g/dL (6.5-8.0); Triglycerides 66 mg/dL (<150)
== END 2024-09-19 06:08 | disposition home or self-care (01) ==
LOC: HO.LAB 06:07
PROVIDERS: PCP Internal Medicine; Visit Provider Internal Medicine
DX: E78.00 Pure hypercholesterolemia, unspecified (principal); M06.09 Rheumatoid arthritis without rheumatoid factor, multiple sites; K21.9 Gastro-esophageal reflux disease without esophagitis
CPT/HCPCS: 36415; 80053; 80061; 85025

== ENCOUNTER 2024-10-17 07:44 | Outpatient (REF) | payer MEDICARE, SELFPAY | END 2024-10-17 07:45 | disposition home or self-care (01) | LOC: HO.MAMMO 07:44 | PROVIDERS: PCP Internal Medicine; Visit Provider Internal Medicine | DX: Z12.31 Encounter for screening mammogram for malignant neoplasm of breast (principal) | CPT/HCPCS: 77063; 77067 ==

== ENCOUNTER → 2024-10-17 08:00 | Outpatient (BNV) | payer MEDICARE, SELFPAY | PROVIDERS: PCP Internal Medicine; Visit Provider Internal Medicine | DX: Z12.31 Encounter for screening mammogram for malignant neoplasm of breast (principal) | CPT/HCPCS: 77063; 77067 ==

== ENCOUNTER 2025-03-08 14:47 | Outpatient (AMB) | payer MEDICARE, SELFPAY ==
--- NOTE | 2025-03-08 14:48 | MHC.PC.OV ---
Vital Signs 03/08/25 14:48 Height 5 ft 3 in Intake Visit Reasons: Routine Alarm Installation Technician Required: No Accompanied by: Sister Allergies Penicillins [PENICILLINS] Allergy (Intermediate, Verified 03/08/25 14:49) HIVES sulfamethoxazole [From Bactrim DS] Allergy (Unknown, Verified 03/08/25 14:49) RASH trimethoprim [From Bactrim DS] Allergy (Unknown, Verified 03/08/25 14:49) RASH atorvastatin Adverse Reaction (Severe, Verified 03/08/25 14:49) Muscle Pain Pravastatin Adverse Reaction (Severe, Uncoded 09/21/23 10:23) Muscle Pain Tobacco use date assessed: 03/08/25 Fall risk assessment: No Falls in past year Last assessed Fall Risk: 03/08/25 Dental Screening Dental Screen Date: 03/08/25 Did you have a dental visit in the last 12 months?: Yes Did you have a dental problem in the last 6 months where you did not have access to dental care?: No HPI HPI Comments History of Present Illness Details Felisha is a 74 year old female with a past medical history of RA, htn, hld presenting for follow up CV: Following with cardiology RA followed by arthritis treatment ctr. continues MTX, folic acid, enbrel Mammo 10/2024 DXA 11/2023 Colonoscopy 01/2023 ROS CONSTITUTIONAL: Denies weight loss, fever and chills. HEENT: Denies changes in vision and hearing. RESPIRATORY: Denies SOB and cough. CV: Denies palpitations and CP GI: Denies abdominal pain, nausea, vomiting and diarrhea. : Denies dysuria and urinary frequency. MSK: Denies new myalgia and joint pain. SKIN: Denies rash and pruritus. NEUROLOGICAL: Denies headache PSYCHIATRIC: Denies recent changes in mood. PHYSICAL EXAM: GENERAL: Alert and oriented x 3. NAD EYES: EOMI. Anicteric. HENT: Moist mucous membranes. No scleral icterus. No cervical lymphadenopathy. LUNGS: Clear to auscultation bilaterally. CARDIOVASCULAR: Regular rate and rhythm. No murmur. No JVD. ABDOMEN: Soft, non-tender +bs EXTREMITIES: No edema. Non-tender. SKIN: No rashes or lesions. Warm. NEUROLOGIC: No focal neurological deficits. CN II-XII grossly intact PSYCHIATRIC: Cooperative. Appropriate mood and affect [facility] Medical History High cholesterol Surgical History H/O: hysterectomy Family History Father Myocardial infarction Mother Hx of CABG CHF (congestive heart failure) Mother No problems noted. Father No problems noted. Social History Housing: House Alcohol intake: never Patient Tobacco Use Status: Never used Tobacco e-Cigarette/Vaping Use: Never Used service: No Current occupational status: retired Cognitive needs: No Hearing needs: No Vision needs: No Questionnaire PHQ-9 Over the last 2 weeks, how often have you been bothered by any of the following problems? 1. Little interest or pleasure in doing things: not at all 2. Feeling down, depressed, or hopeless: not at all 3. Trouble falling or staying asleep, or sleeping too much: not at all 4. Feeling tired or having little energy: not at all 5. Poor appetite or overeating: not at all 6. Feeling bad about yourself - or that you are a failure or have let yourself or your family down: not at all 7. Trouble concentrating on things, such as reading the newspaper or watching television: not at all 8. Moving or speaking so slowly that other people could have noticed. Or the opposite - being so fidgety or restless that you have been moving around a lot more than usual: not at all 9. Thoughts that you would be better off or of hurting yourself in some way: not at all Total score: 0 Depression Screening Interpretation: Negative Depression Screening Done: Yes 70565 - PHQ-9 Billing: Yes Source: Developed by Drs. Estuardo Vance, Aretha Banks, Tan Vogt and colleagues, with an educational chely from [employer]. Thrive Questionnaire Date Thrive assessed: 03/08/25 I am a: Patient Within the past 12 months, did the food you bought not last and you didn't have the money to get more?: Never true Within the past 12 months, did you worry whether your food would run out before you got money to buy more?: Never true Do you have trouble paying for medicines?: No Do you have trouble getting transportation to medical appointments?: No Do you have trouble paying your heating and electricity bill?: No Do you have trouble taking care of your child, family member or friend?: No Do you have trouble with day-to-day activities such as bathing, preparing meals, shopping, managing finances, etc.?: No Are you currently unemployed and looking for a job?: No Are you interested in more education?: No THRIVE Score: 0 AUDIT C Alcohol Use Questionnaire (AUDIT-C) 1. How often do you have a drink containing alcohol?: Never 3. How often do you have six or more drinks on one occasion?: Never Total Score: 0 RUBA-7 AMB Questionnaire RUBA-7 Date RUBA - 7 assessed: 03/08/25 Feeling nervous, anxious, or on edge: 0 = Not at all Not being able to stop or control worryin = Not at all Worrying too much about different things: 0 = Not at all Trouble relaxin = Not at all Being so restless that it is hard to sit still: 0 = Not at all Becoming easily annoyed or irritable: 0 = Not at all Feeling afraid as if something awful might happen: 0 = Not at all Total RUBA-7 score (0-4 normal; 5-9 mild; 10-14 moderate; 15-21 severe): 0 Source: Developed by Drs. Estuardo Vance, Aretha Banks, Tan Vogt and colleagues, with an educational chely from [employer]. Physical exam (Primary Care) Tobacco/Smoking Status: Tobacco use Status Tobacco use date assessed 03/08/25 03/08/25 14:50 Patient Tobacco Use Status Never used Tobacco 03/08/25 14:49 e-Cigarette/Vaping Use Never Used 03/08/25 14:50 PHQ-9: PHQ-9 Score PHQ-9: Total score 0 03/08/25 20:53 Depression Screening Interpretation: Negative Thrive Assessment: Date of Thrive Assessment Date Thrive assessed 03/08/25 03/08/25 14:50 Coding Level of Care Code New Pt Level 4 (46285) Complex EM visit Add On G2211 Diagnoses High cholesterol E78.00 Rheumatoid arthritis involving multiple sites, unspecified whether rheumatoid factor present M06.9 Rheumatoid arthritis location: multiple sites Rheumatoid factor presence: unspecified presence Additional Codes PHQ-9 - 28437 - PHQ-9 Billing: Yes ([id number]) Assessment & Plan Assessment & Plan (1) High cholesterol: Code(s): E78.00 - Pure hypercholesterolemia, unspecified Category: Medical (2) Rheumatoid arthritis: Code(s): M06.9 - Rheumatoid arthritis, unspecified Category: Medical Qualifiers: Rheumatoid arthritis location: multiple sites Rheumatoid factor presence: unspecified presence Qualified Code(s): M06.9 - Rheumatoid arthritis, unspecified Plan 74 year old female to establish care Past medical, surgical, social reviewed RA stable hld stable on meds labs ordered. Follow up q 6 months Orders: Orders Complete Blood Count Auto Diff 03/08/25 I25.10 - Atherosclerotic heart disease of [place] coronary artery without angina pectoris, R07.9 - Chest pain, unspecified, Z13.0 - Encounter for screening for diseases of the blood and blood-forming organs and certain disorders involving the immune mechanism, Z13.228 - Encounter for screening for other metabolic disorders Comprehensive Met. Panel 03/08/25 I25.10 - Atherosclerotic heart disease of [place] coronary artery without angina pectoris, R07.9 - Chest pain, unspecified, Z13.0 - Encounter for screening for diseases of the blood and blood-forming organs and certain disorders involving the immune mechanism, Z13.228 - Encounter for screening for other metabolic disorders TSH reflex Free T4 03/08/25 I25.10 - Atherosclerotic heart disease of [place] coronary artery without angina pectoris, R07.9 - Chest pain, unspecified, Z13.0 - Encounter for screening for diseases of the blood and blood-forming organs and certain disorders involving the immune mechanism, Z13.228 - Encounter for screening for other metabolic disorders Lipid Panel 03/08/25 I25.10 - Atherosclerotic heart disease of [place] coronary artery without angina pectoris, R07.9 - Chest pain, unspecified, Z13.0 - Encounter for screening for diseases of the blood and blood-forming organs and certain disorders involving the immune mechanism, Z13.228 - Encounter for screening for other metabolic disorders Vitamin D 25-OH (D2 and D3) 03/08/25 I25.10 - Atherosclerotic heart disease of [place] coronary artery without angina pectoris, R07.9 - Chest pain, unspecified, Z13.0 - Encounter for screening for diseases of the blood and blood-forming organs and certain disorders involving the immune mechanism, Z13.228 - Encounter for screening for other metabolic disorders
--- OUTSIDE RECORDS SUMMARY | 2025-03-08 17:26 | XMS_ITS | Patient Health Record ---
Author Organization [facility] Address [address] [place] [address] Care Team Providers Care Tram Inspector Name Role Phone Bert La MD Primary Care Provider Estuardo Morris Unavailable [phone] Allergies Allergen (clinical drug ingredient) Drug/Non Drug Allergy documented on EMR Reaction Allergy Type Onset Date Status fentanyl Fentanyl vomiting Drug Allergy Active sulfamethoxazole / trimethoprim Bactrim Unknown Drug Allergy Active Reason For Referral No Information Medications Medication SIG (Take, Route, Frequency, Duration) Notes [...] Metamucil Fiber - as directed Orally Active Immunizations Vaccine Route Administration Date Status Comme nts Influenza Unknown 07/21/2022 Administered Problems Problem Type SNOMED Code ICD Code Onset Dates Problem Status W/U Status Risk Notes Problem Diverticular disease of colon (136112604) Diverticulosis of large intestine without perforation or abscess without bleeding (K57.30) Active confirmed Problem Gastroesophageal reflux disease (K21.9) Active confirmed Problem Iron deficiency anemia (22762988) Iron deficiency anemia (D50.9) Active confirmed Problem 45642306 Hiatal hernia (K44.9) Active confirmed Problem 672577847 GERD with esophagitis (K21.0) Active confirmed Problem 17825529 Iron deficiency anemia, unspecified iron deficiency anemia type (D50.9) Active confirmed Problem 85650231 Upper abdominal pain (R10.10) Active confirmed Plan Of Treatment Future Test Test Name Order Date UPPER GI ENDOSCOPY 08/10/2014 COLONOSCOPY 08/10/2014 UPPER GI ENDOSCOPY 12/31/2022 COLONOSCOPY 12/31/2022 Next Appt Details Provider Name:Estuardo Anna , 03/22/2025 09:00:00 AM, [address], [address], [place], [address], Insurance Providers Payer Name Payer Address Payer Phone Subscriber Number Group Number Insured Name Patient Relationship to Insured Coverage Start Date Coverage End Date MEDICARE OF [place] [address] [place] [address] [phone] [id number] ERNIE CARABALLO Self - patient is the insured [employer] CLAIMS [address] [place] [address] [phone] [id number] ERNIE CARABALLO Self - patient is the insured Medical (General) History Medical History History ICD Code Colonoscopy 10-19-2003--only internal hem orrhoids Hyperlipidemia Denies [place],DM,CVA,Lung disease,renal dise ase GERD-upper endoscopy in 2014 [...]
== END 2025-03-08 15:46 | disposition home or self-care (01) ==
LOC: HO.HMCHD 14:48
PROVIDERS: PCP Internal Medicine; Visit Provider Internal Medicine
DX: E78.00 Pure hypercholesterolemia, unspecified (principal); M06.9 Rheumatoid arthritis, unspecified

== ENCOUNTER → 2025-03-08 14:47 | Outpatient (BNVA) | payer MEDICARE, SELFPAY | PROVIDERS: PCP Internal Medicine; Visit Provider Internal Medicine | DX: M06.9 Rheumatoid arthritis, unspecified (principal); I10 Essential (primary) hypertension; E78.00 Pure hypercholesterolemia, unspecified; I25.10 Atherosclerotic heart disease of native coronary artery without angina pectoris; R07.9 Chest pain, unspecified | CPT/HCPCS: 96127; 99202 ==

== ENCOUNTER 2025-04-03 07:54 | Outpatient (AMB) | payer MEDICARE, SELFPAY ==
--- OUTSIDE RECORDS SUMMARY | 2016-03-03 13:50 | XMS_ITS | Continuity of Care Document ---
Author Organization [facility] Address [address] [place] [address] Dr [address] [place] [phone] Phone Care Team Providers Care Brand Specialist Name Role Phone No Information Unavailable Unavailable Advance Directives Directive Yes / No Effective Date File Name No Information Encounters Encounter Description Practice Location Reason(s) For Visit Diagnoses Date Provider Providers Copied on Encounter [facility], [address] [place] [address] Dr [address], [place], [id number], [place] tel:[phone] [facility] - [place] No Information No Information Family History Family Member Type Diagnosis Age At Onset No Information Payers Payer name Insurance type Covered constitution party ID Authoriza tion(s) No Information Social History [...]
--- OUTSIDE RECORDS SUMMARY | 2025-03-22 05:00 | XMS_ITS ---
Author Organization [facility] Address [address] [place] [address] Care Team Providers Care Check Scaler Name Role Phone Corrina Sheppard M.D. Primary Care Provider Unavail able Estuardo Anna Unavailable [phone] Allergies Allergen (clinical drug ingredient) Drug/Non Drug Allergy documented on EMR Reaction Allergy Type Onset Date Status fentanyl Fentanyl vomiting Drug Allergy Active sulfamethoxazole / trimethoprim Bactrim Unknown Drug Allergy Active REASON FOR VISIT Patient presents today for a recall colonoscopy Medications Medication SIG (Take, Route, Frequency, Duration) Notes Start Date End Date Status Omeprazole 20 MG TAKE ONE CAPSULE BY MOUTH EVERY MORNING Orally Once a day for 90 days Not-Taking Iron (Ferrous Sulfate) 325 (65 Fe) MG 1 tablet Orally Once a day for 30 day(s) Active Zantac 360 10 MG 1 tablet as needed Orally Twice a day Active Metamucil Fiber - as directed Orally Active Alendronate Sodium 70 MG 1 tablet 30 min utes before the first food, beverage or medicine of the day with plain water Orally Active Folic Acid 400 MCG 1 tablet Orally Once a day Active Atorvastatin Calcium 80 MG 1 tablet Orally Once a day Active Lisinopril 5 MG 2 tablets Orally Onc e a day Active Methotrexate 2.5 MG/ML as directed Orally Active Aspirin 81 81 MG 1 tablet Orally Once a day Active Famotidine 40 MG 1 tablet Orally Ever y morning and every evening for reflux and heartburn for 30 days 03/22/2025 Active Enbrel 50 MG/ML 1 mL Subcutaneous Active Vital Signs Temperature 97.5 degrees Fahrenheit 03/22/20 25 Blood pressure systolic 001 mm Hg 03/22/20 25 Blood pressure diastolic 01 mm Hg 025 Height 63 in 03/22/2025 Weight 145 lbs 03/22/2025 BMI 25.68 kg/m2 03/22/2025 Encounters Encounter Location Date Provider Diagnosis [facility] [address] [place] [address] 03/22/2025 Estuardo Anna Gastroesophageal ref lux disease K21.9 and Iron deficiency anemia, unspecified iron deficiency anemia type D50.9 Assessments Encounter Date Diagnosis (ICD Code) Assessment Notes Treatment Notes Treatment Clinical Notes Section Notes 03/22/2025 Gastroesophageal reflux disease (ICD-10 - K21.9) Switch from the Zantac to Famotidine. Call me if the Famotidine is not helping th ereflux and I can switch you to Omeprazole(Pr ilosec) Overall, Christina appears to be doing quite well. Her previous anemia seems to have resolved on her iron replacement and the workup in 2022 was negative for any worrisome findings. We did review the findings on both procedures in detail. Given her ongoing symptoms of reflux despite using [id number] Zantac I shall switch her to a trial of famotidine 40 mg once or twice a day for the symptoms. We did discuss starting her on a PPI but at this point given that her symptoms are not daily, she is not having any worrisome symptoms, and the endoscopy did not reveal any significant findings I think would be reasonable to put her on a trial of a prescription strength H2 papa for now given the underlying history of osteoporosis and rheumatoid arthritis given the theoretical risk of worsening bone disease from the PPIs. However, I did advise her that if the famotidine does not work for the reflux she should let me know and we can always put her on a PPI if need be. We did review her negative colonoscopy and given her age of 74 I do not think she would need any further screening colonoscopies going forward. If things remain stable she would otherwise see me on a as needed basis. Christina was comfortable with this plan. Thank you again for allowing me to have participated in Christina's care. Please do not hesitate to contact me if I can be of any further assistance in the future. 03/22/2025 Iron deficiency anemia, unspecified iron deficiency anemia type (ICD-10 - D50.9) Continue Iron once a day Overall, Christina appears to be doing quite well. Her previous anemia seems to have resolved on her iron replacement and the workup in 2022 was negative for any worrisome findings. We did review the findings on both procedures in detail. Given her ongoing symptoms of reflux despite using [id number] Zantac I shall switch her to a trial of famotidine 40 mg once or twice a day for the symptoms. We did discuss starting her on a PPI but at this point given that her symptoms are not daily, she is not having any worrisome symptoms, and the endoscopy did not reveal any significant findings I think would be reasonable to put her on a trial of a prescription strength H2 papa for now given the underlying history of osteoporosis and rheumatoid arthritis given the theoretical risk of worsening bone disease from the PPIs. However, I did advise her that if the famotidine does not work for the reflux she should let me know and we can always put her on a PPI if need be. We did review her negative colonoscopy and given her age of 74 I do not think she would need any further screening colonoscopies going forward. If things remain stable she would otherwise see me on a as needed basis. Christina was comfortable with this plan. Thank you again for allowing me to have participated in Christina's care. Please do not hesitate to contact me if I can be of any further assistance in the future. Plan Of Treatment Medication Medication Name Sig Start Date Stop Date Notes Famotidine 40 MG 1 tablet Orally Ever y morning and every evening for reflux and heartburn for 30 days 03/22/2025 Treatment Notes Assessment Notes Gastroesophageal reflux disease Switch f rom the Zantac to Famotidine. Call me if the Famotidine is not helping th ereflux and I can switch you to Omeprazole(Prilosec) Iron deficiency anemia, unsp ecified iron deficiency anemia type Continue Iron once a day Next Appt Details Follow Up: prn, Reason: Progress Notes * ERNIE CARABALLO RDOB: [birth year] (74 yo F)Acc No.[id number]:03/22/2025 Progress Notes Patient: ERNIE CORTEZ Provider: Suhail Anna MD :1950 A ge:74 Y S ex:Female Date:03/22/2025 Address:[address] [place] [address], [id number] Pcp:Corrina Sheppard M.D. Subjective: * Chief Complaints: * 1 . Patient presents today for a recall colonoscopy. * HPI: i ncontinence: I saw Christina in follow-up today in regard to her previous anemia and reflux. I last saw Christina in January 2023 when she underwent an upper endoscopy and colonoscopy for evaluation of anemia. Her colonoscopy was negative other than a nonadenomatous polyp removed from the cecum. Her upper endoscopy revealed only a small hiatal hernia and changes of reflux, but no evidence of any significant esophagitis, Phillips's esophagus, or celiac disease on duodenal biopsies. Since that time she has been feeling well from a GI standpoint but has been having fairly frequent episodes of reflux despite using qafh-xif-xpyxmif Zantac. She denies any anorexia, dysphagia, nausea, vomiting, nor early satiety. Her bowel movements have been regular and without any signs of melena nor hematochezia. She denies any abdominal pain, jaundice, nor unintentional weight loss. She has no family Struve colorectal cancer although does have a younger sister with a history of some polyps removed with me. She has remained on iron once a day and her most recent hemoglobin I see from September 2024 was normal at 12.5 with a normal MCV. She also had normal chemistries, renal function, and LFTs at that time as well. * Medical History: C olonoscopy 10-19-2003--only internal hemorrhoids, Hyperlipidemia, Denies [place],DM,CVA,Lung disease,renal disease, GERD-upper endoscopy in January 2015 revealed a small hiatal hernia, reflux esophagitis, and mild gastritis--biopsies were negative for H. pylori and Phillips's esophagus-she was started on omeprazole at that time with good relief, Screening colonoscopy in January of 2015 was negative other than some sigmoid diverticulosis, and internal and external hemorrhoids--she did have an adverse reaction to the sedation of fentanyl and Versed, with post procedure vomiting and nausea, Anemia--low iron saturation but Hemoccult negative stool in December 2022, Cardiac workup with Dr. Noonan 12/2022 revealed a normal echocardiogram., Negative CT scan and ultrasound of the abdomen 12/2022, Rheumatoid arthritis, Upper endoscopy in January 2023 revealed a small hiatal hernia and changes of reflux, but no evidence of any significant esophagitis or Phillips's esophagus. Duodenal biopsies were negative at that time for celiac disease. At that time she had anemia which did resolve., Colonoscopy in January 2023 was negative other than a non-adenomatous polyp removed from the cecum. That had been done for anemia that resolved, Osteoporosis. * Surgical History: H ysterectomy and appy , Cataract and lens implants for both eyes . * Family History: F ather: , diagnosed with Heart disease. M other: , diagnosed with Heart disease. There is no family history of colorectal cancer, celiac disease, nor inflammatory bowel disease.? No family history of liver cancer. * Social History: T obacco Use: T obacco Use/Smoking A re you a: nonsmoker. D rugs/Alcohol: A lcohol Screen P oints: 0, Interpretation: Negative. M iscellaneous: C affeine: 3-4 cups per day. Marital status: Single. 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 N onsmoker; no alcohol. * Medications: T aking Enbrel 50 MG/ML Solution Prefilled Syringe 1 mL Subcutaneous , Taking Aspirin 81 81 MG Tablet Delayed Release 1 tablet Orally Once a day , Taking Alendronate Sodium 70 MG Tablet 1 tablet 30 minutes before the first food, beverage or medicine of the day with plain water Orally , Taking Methotrexate 2.5 MG/ML Solution as directed Orally , Taking Lisinopril 5 MG Tablet 2 tablets Orally Once a day , Taking Atorvastatin Calcium 80 MG Tablet 1 tablet Orally Once a day , Taking Folic Acid 400 MCG Tablet 1 tablet Orally Once a day , Taking Metamucil Fiber - Tablet Chewable as directed Orally , Taking Zantac 360 10 MG Tablet 1 tablet as needed Orally Twice a day , Taking Iron (Ferrous Sulfate) 325 (65 Fe) MG Tablet 1 tablet Orally Once a day , Not-Taking/PRN Omeprazole 20 MG Capsule Delayed Release TAKE ONE CAPSULE BY MOUTH EVERY MORNING Orally Once a day , Discontinued Lipitor 40 MG Tablet 1 tablet Orally Once a day , Medication List reviewed and reconciled with the patient * Allergies: B actrim, Fentanyl: vomiting. Objective: * Vitals: W t: 145 lbs, Ht: 63 in, BMI: 25.68 Index, BP: 001/01 mm Hg, Temp: 97.5, Wt-k.77. Assessment: * Assessment: 1. G astroesophageal reflux disease - K21.9 (Primary) 2 . I andie deficiency anemia, unspecified iron deficiency anemia type - D50.9 Overall, Christina appears to be doing quite well. Her previous anemia seems to have resolved on her iron replacement and the workup in 2022 was negative for any worrisome findings. We did review the findings on both procedures in detail. Given her ongoing symptoms of reflux despite using jrct-iet-znpavac Zantac I shall switch her to a trial of famotidine 40 mg once or twice a day for the symptoms. We did discuss starting her on a PPI but at this point given that her symptoms are not daily, she is not having any worrisome symptoms, and the endoscopy did not reveal any significant findings I think would be reasonable to put her on a trial of a prescription strength H2 papa for now given the underlying history of osteoporosis and rheumatoid arthritis given the theoretical risk of worsening bone disease from the PPIs. However, I did advise her that if the famotidine does not work for the reflux she should let me know and we can always put her on a PPI if need be. We did review her negative colonoscopy and given her age of 74 I do not think she would need any further screening colonoscopies going forward. If things remain stable she would otherwise see me on a as needed basis. Christina was comfortable with this plan. Thank you again for allowing me to have participated in Christina's care. Please do not hesitate to contact me if I can be of any further assistance in the future. Plan: * Treatment: 2. I andie deficiency anemia, unspecified iron deficiency anemia type Notes: Continue Iron once a day * Preventive Medicine: Counseling: C are goal follow-up plan: A yanet Normal BMI Follow-up D ietary management education, guidance, and counseling, B MO management provided Y es. Urinary Incontinence: U rinary Incontinence A ssessment: A bsent, P linda of care documented: N o, reason not specified. Screenings: F all Risk Screening F all Risk Assessment: N o falls in the past year, S creening: N o falls in the past year, A ssessment: N ot performed, no reason specified, P linda of Care: N ot documented, no reason specified. * Follow Up: p rn * * The named appointment provid er may or may not be the originator of this progress note, and it is not deemed complete until electronically signed by the appointment provider. Sign off status: Pending * Provider: Suhail Anna MD Date: 0 03/22/2025 Generated for Babita cook/Michele/Ender on: 04/03/2025 07:57 AM EDT
[2025-04-03 08:23] VITALS: BP 120/68; PULSE 69; BMI 25.4
--- NOTE | 2025-04-03 08:23 | A.OFFVIS_ITS ---
Vital Signs 04/03/25 08:23 Height 5 ft 3 in Weight 143 lb 4.807 oz BMI 25.4 BP 120/68 Blood Pressure Location Lt brachial Position Sitting Pulse 69 Pulse Source Monitor Intake Visit Reasons: 1 yr follow up Allergies Penicillins (PENICILLINS) Allergy (Intermediate, Verified 03/08/25 14:49) HIVES sulfamethoxazole (From Bactrim DS) Allergy (Unknown, Verified 03/08/25 14:49) RASH trimethoprim (From Bactrim DS) Allergy (Unknown, Verified 03/08/25 14:49) RASH atorvastatin Adverse Reaction (Severe, Verified 03/08/25 14:49) Muscle Pain Pravastatin Adverse Reaction (Severe, Uncoded 09/21/23 10:23) Muscle Pain Medication List - Last Reconciled 04/03/25 by Narendra Noonan MD alendronate 70 mg PO QWEEK aspirin (Adult Aspirin Regimen) 81 mg PO DAILY atorvastatin 80 mg PO DAILY etanercept (Enbrel) 50 mg subcut QWEEK famotidine 40 mg PO DAILY folic acid 1 mg PO DAILY lisinopril 5 mg PO DAILY methotrexate sodium 20 mg PO QWEEK HPI Comments Details: Felisha returns for follow-up regarding coronary artery disease. Since last seen, she states she feels fine. No cardiac symptoms whatsoever. Getting along fine. PENDING SALE TO [facility] Medical History (Updated 04/03/25 @ 10:04 by Narendra Noonan MD) Atherosclerotic cardiovascular disease High cholesterol Surgical History H/O: hysterectomy Family History Father Myocardial infarction Mother Hx of CABG CHF (congestive heart failure) Mother No problems noted. Father No problems noted. Social History Housing: House Alcohol intake: never Patient Tobacco Use Status: Never used Tobacco e-Cigarette/Vaping Use: Never Used service: No Current occupational status: retired Cognitive needs: No Hearing needs: No Vision needs: No Review of Systems Const Denies weakness ENT Denies dizziness Card Denies chest pain, Denies chest pain with activity, Denies syncope, Denies rapid heart rate, Denies pedal edema, Denies edema, Denies leg edema, Denies lightheadedness, Denies palpitations, Denies dyspnea, Denies dyspnea on exertion and Denies orthopnea Resp Denies cough, Denies dyspnea and Denies dyspnea on exertion GI Denies hematochezia and Denies change in stool character Musc Denies abnormal gait, Denies muscle cramps, Denies muscle weakness, Denies numbness, Denies radiating pain into limb and Denies tingling Neuro Denies abnormal gait, Denies dizziness, Denies syncope, Denies numbness, Denies tingling and Denies weakness Endo Denies palpitations Physical Exam Vital Signs: Last Vital Signs Pulse 69 04/03/25 08:23 BP 120/68 04/03/25 08:23 BMI result Body Mass Index 25.4 Const General: comfortable and no acute distress Orientation/consciousness: patient oriented x3 HEENT Other: Unremarkable Head: Yes normal to inspection Neck Neck: Yes normal visual inspection Chest Chest palpation & inspection: normal inspection of the chest Resp Auscultation: clear to auscultation bilaterally Cardio Palpation: normal PMI Heart sounds: S1 normal heart sound present, S2 normal heart sound present, no gallops, no murmurs and no rubs GI Palpation (GI): Soft to palpation Back/Spine/Pelvis Other: unremarkable Skin General skin exam: no rashes or lesions noted Neuro General: patient oriented x3 Extrem General: Yes normal to inspection Psych Mental Status: mental status grossly normal Office Procedures EKG Details: EKG with underlying sinus rhythm with right bundle-branch block pattern. Ventricular rate 69/Min. 37338-[id number], Complete Assessment & Plan Assessment & Plan (1) Atherosclerotic cardiovascular disease: Code(s): I25.10 - Atherosclerotic heart disease of [place] coronary artery without angina pectoris Category: Medical (2) Right bundle branch block: Code(s): I45.10 - Unspecified right bundle-branch block Category: Medical Plan New right bundle-branch block noted today. In the coronary CTA 2022, she had intermediate grade disease in the LAD and RCA but nothing clearly obstructive. Clinically she has got no overt chest pains but because of the EKG findings, recommend noninvasive workup with an echocardiogram/stress test. She is willing to do that. For blood pressure, on lisinopril. Continue. For lipids, she is on statins. Discussion Notes I discussed with the patient the new finding of right bundle branch block and its implications, emphasizing that it is less concerning than a left bundle branch block. We considered a stress test to assess coronary blood flow, given her history of coronary artery disease, and discussed the possibility of an angiogram if the stress test results are positive. The patient was advised to continue her current medications and maintain her active lifestyle, with a follow-up scheduled in three months. Patient was informed and verbally consented to the use of an ambient scribe for clinic note documentation during this visit. Orders: Orders CA stress test Today I25.10 - Atherosclerotic heart disease of [place] coronary artery without angina pectoris, R07.2 - Precordial pain NM cardiolite stress test Today I25.10 - Atherosclerotic heart disease of [place] coronary artery without angina pectoris, R07.2 - Precordial pain CA echo transthoracic complete Today I25.10 - Atherosclerotic heart disease of [place] coronary artery without angina pectoris Patient Instructions: - Continue taking your prescribed medications. - Maintain your active lifestyle, including yard work and walking. - Monitor for any new symptoms such as chest pain or increased lightheadedness. - Follow up in three months for reassessment. Coding Level of Care Code Est Pt Level 4 (67795) Complex EM visit Add On G2211 Diagnoses Atherosclerotic cardiovascular disease I25.10 Right bundle branch block I45.10 CPT Codes EKG - CPT: 64361-[id number], Complete ([id number])
== END 2025-04-03 08:57 | disposition home or self-care (01) ==
LOC: HO.HCS 07:54
PROVIDERS: PCP Internal Medicine; Visit Provider Internal Medicine
DX: I25.10 Atherosclerotic heart disease of native coronary artery without angina pectoris (principal); I45.10 Unspecified right bundle-branch block
CPT/HCPCS: 93010; 99214; G2211

== ENCOUNTER → 2025-04-03 07:54 | Outpatient (BNVA) | payer MEDICARE, SELFPAY | PROVIDERS: PCP Internal Medicine; Visit Provider Internal Medicine | DX: I25.10 Atherosclerotic heart disease of native coronary artery without angina pectoris (principal); I45.10 Unspecified right bundle-branch block | CPT/HCPCS: 93005; 99212 ==

== ENCOUNTER → 2025-05-30 08:50 | Outpatient (BNV) | payer MEDICARE, SELFPAY | PROVIDERS: PCP Internal Medicine; Visit Provider Internal Medicine | DX: I25.10 Atherosclerotic heart disease of native coronary artery without angina pectoris (principal); I35.8 Other nonrheumatic aortic valve disorders | CPT/HCPCS: 93306 ==

== ENCOUNTER → 2025-05-30 08:50 | Outpatient (REF) | payer MEDICARE, SELFPAY ==
--- OUTSIDE RECORDS SUMMARY | 2016-03-03 13:50 | XMS_ITS | Continuity of Care Document ---
Author Organization [facility] Address [address] [place] [address] Dr [address] [place] [phone] Phone Care Team Providers Care Studio Couch Frame Builder Name Role Phone No Information Unavailable Unavailable Advance Directives Directive Yes / No Effective Date File Name No Information Encounters Encounter Description Practice Location Reason(s) For Visit Diagnoses Date Provider Providers Copied on Encounter [facility], [address] [place] [address] Dr [address], [place], [id number], [place] tel:[phone] [facility] - [place] No Information No Information Family History Family Member Type Diagnosis Age At Onset No Information Payers Payer name Insurance type Covered democrat ID Authoriza tion(s) No Information Social History [...]
--- NOTE | 2025-05-30 08:50 | CA_ITS ---
Transthoracic Echocardiogram Patient (Last, First, Middle): Felisha Parkinson R Gender: F Date of : 1950 Age: 74 Procedure Date: 05/30/2025 Procedure Type: Transthoracic Echocardiogram Location: OP Height: 162.56 cm Weight: 65.77 kg BSA: 1.71 m2 Heart Rate: bpm BP: 128 / 68 mmHg Car Dumper: PRASAD/OSVALDO Referring MD: Narendra Noonan MD Symptoms: I25.10 - Atherosclerotic heart disease of [place] coronary artery without... Study Quality: Adequate ECG Rhythm: Sinus Conclusions: - The left ventricular systolic function is normal. The calculated ejection fraction is 58% by biplane method. - No obvious valvular pathology seen on this study. Findings Left Ventricle Normal left ventricular cavity size. There is normal left ventricular wall thickness. The left ventricular systolic function is normal. The calculated ejection fraction is 58% by biplane method. There is no evidence of regional wall motion abnormalities. Diastolic function is normal for age. LV peak GLS -20.8%. Right Ventricle Mildly increased right ventricular cavity size. There is low normal right ventricular systolic function. Atria The left atrium is mildly dilated. The right atrium is normal in size. Aortic Valve There is a normal trileaflet aortic valve. There is mild calcification of the aortic valve. There is no aortic valve stenosis. There is no aortic valve regurgitation. Mitral Valve The mitral valve appears normal. There is no mitral valve regurgitation. There is no mitral valve stenosis. Pulmonic Valve There is trace pulmonic valve regurgitation. Tricuspid Valve There is trace tricuspid valve regurgitation. There is no evidence of pulmonary hypertension. Great Vessels The asc aorta is normal in size. Venous The inferior vena cava is normal in size and collapses greater than 50% with inspiration. Pericardium/Pleural There is no evidence of pericardial effusion. Prior Study Comparison No significant change compared to prior study dated: 12/16/2022. Recommendations, Care & Conclusions No obvious valvular pathology seen on this study. Measurements 2D Linear Measurements IVSd: 0.79 0.6-0.9/0.6-1.0 cm LVIDd: 4.84 3.9-5.3/4.2-5.9 cm LVIDd Index: 2.83 2.4-3.2/2.2-3.1 cm/m2 LVIDs: 2.94 2.0-3.6 cm LVPWd: 0.97 0.7-1.1 cm Ao Root: 3.10 2.1-3.5 cm LA Diam: 3.60 2.7-3.8/3.0-4.0 cm LAIDs Index: 2.11 1.5-2.3 cm/m2 LV Mass: 181.76 67-162/88-224 g LV Mass Index: 106.29 43-95/49-115 g/m2 LVOT Diam: 2.10 3.0+(-)1.3 cm 2D Systolic Function EF 4C: 55.10 >55% EF 2C: 62.20 >55% EF BiP: 58.40 >55% Mitral Valve MV Pk E: 0.87 MV PK A: 0.76 MV Decel Time: 232.00 E/A: 1.10 E'Lateral: 9.46 E'Medial: 8.38 E/E' Med: 10.30 E/E' Lat: 9.20 PHT: 68.00 MVA PHT: 3.24 Decel [place]: 3.73 Aortic Valve AoV Pk Alex: 1.49 AoV Mn Alex: 0.99 AoV VTI: 0.27 AoV Pk Grad: 9.00 Aov Mn Grad: 5.00 SUKH Cont.VTI: 2.22 LVOT LVOT Pk Alex: 0.78 LVOT Mn Alex: 0.53 LVOT VTI: 0.17 LVOT Pk Grad: 2.00 LVOT Mn Grad: 1.00 LVOT Diam: 2.10 LVOT Area: 3.46 Diastolic Function MV Pk E: 0.87 MV Pk A: 0.76 E/A: 1.10 E'Medial: 8.38 E/E' Med: 10.30 E' Laterial: 9.46 E/E' Lat: 9.20 Right Ventricle TAPSE (mm): 17.90 TVS' Alex: 8.05 Tricuspid Valve TR Pk Alex: 2.34 TR Pk Grad: 22.00 RA Press: 3.00 RVSP: 25.00 Great Vessels Aorta Ao Root-2D: 3.10 2.0-3.7 cm Ao Asc: 3.20 2.1-3.4 cm Ao Arch: 2.80 Updated in Other Vendor System with Status of Final Narendra Noonan MD electronically signed on 06/01/2025 9:06:21 AM with status of Final
--- OUTSIDE RECORDS SUMMARY | 2025-05-30 09:16 | XMS_ITS | Patient Health Record ---
Author Organization [facility] Address [address] [place] [address] Care Team Providers Care Delivery Sales Worker Name Role Phone Corrina Sheppard M.D. Primary Care Provider Unavail shalom AnnaEstuardo Unavailable [phone] Allergies Allergen (clinical drug ingredient) Drug/Non Drug Allergy documented on EMR Reaction Allergy Type Onset Date Status fentanyl Fentanyl vomiting Drug Allergy Active sulfamethoxazole / trimethoprim Bactrim Unknown Drug Allergy Active Reason For Referral No Information Medications Medication SIG (Take, Route, Frequency, Duration) Notes Start Date End Date Status Alendronate Sodium 70 MG 1 tablet 30 min utes before the first food, beverage or medicine of the day with plain water Orally Active Aspirin 81 81 MG 1 tablet Orally Once a day Active Omeprazole 20 MG TAKE ONE CAPSULE BY MOUTH EVERY MORNING Orally Once a day for 90 days Not-Taking Folic Acid 400 MCG 1 tablet Orally Once a day Active Atorvastatin Calcium 80 MG 1 tablet Orally Once a day Active Lisinopril 5 MG 2 tablets Orally Onc e a day Active Methotrexate 2.5 MG/ML as directed Orally Active Iron (Ferrous Sulfate) 325 (65 Fe) MG 1 tablet Orally Once a day for 30 day(s) Active Zantac 360 10 MG 1 tablet as needed Orally Twice a day Active Metamucil Fiber - as directed Orally Active Famotidine 40 MG 1 tablet Orally Ever y morning and every evening for reflux and heartburn for 30 days 03/22/2025 Active Enbrel 50 MG/ML 1 mL Subcutaneous Active Immunizations Vaccine Route Administration Date Status Comme nts Influenza Unknown 07/21/2022 Administered Influenza Unknown 07/25/2024 Administered Problems Problem Type SNOMED Code ICD Code Onset Dates Problem Status W/U Status Risk Notes Problem Diverticular disease of colon (106293512) Diverticulosis of large intestine without perforation or abscess without bleeding (K57.30) Active confirmed Problem Gastroesophageal reflux disease (320857755) Gastroesophageal reflux disease (K21.9) Active confirmed Problem Iron deficiency anemia (54971087) Iron deficiency anemia (D50.9) Active confirmed Problem 81442155 Hiatal hernia (K44.9) Active confirmed Problem 062233989 GERD with esophagitis (K21.0) Active confirmed Problem 39658164 Iron deficiency anemia, unspecified iron deficiency anemia type (D50.9) Active confirmed Problem 52858290 Upper abdominal pain (R10.10) Active confirmed Vital Signs Temperature 97.5 degrees Fahrenheit 03/22/2025 Blood pressure diastolic 01 mm Hg 03/22/2025 Height 63 in 03/22/2025 Blood pressure systolic 001 mm Hg 03/22/2025 Weight 145 lbs 03/22/2025 BMI 25.68 kg/m2 03/22/2025 Encounters Encounter Location Date Provider Diagnosis [facility] [address] [place] [address] 03/22/2025 Estuardo Anna Gastroesophageal ref lux disease K21.9 and Iron deficiency anemia, unspecified iron deficiency anemia type D50.9 Assessments Encounter Date Diagnosis (ICD Code) Assessment Notes Treatment Notes Treatment Clinical Notes Section Notes 03/22/2025 Gastroesophageal reflux disease (ICD-10 - K21.9) Switch from the Zantac to Famotidine. Call me if the Famotidine is not helping the reflux and I can switch you to Omeprazole(Pr ilosec) Overall, Christina appears to be doing quite well. Her previous anemia seems to have resolved on her iron replacement and the workup in 2022 was negative for any worrisome findings. We did review the findings on both procedures in detail. Given her ongoing symptoms of reflux despite using [id number] Zantac I shall switch her to a trial of famotidine 40 mg once or twice a day for the symptoms. We did discuss starting her on a PPI but at this point given that her symptoms are not daily, she is not having any worrisome symptoms, and the endoscopy did not reveal any significant findings, I think it would be reasonable to put her on a trial of a prescription strength H2 papa for now given the underlying history of osteoporosis and rheumatoid arthritis with the theoretical risk of worsening bone disease from the PPIs. However, I did advise her that if the famotidine does not work for the reflux she should let me know and we can always put her on a PPI if need be. We did review her negative colonoscopy in 2022 and given her age of 74 I [...] her ongoing symptoms of reflux despite using pgzf-iyp-hmsmvza Zantac I shall switch her to a trial of famotidine 40 mg once or twice a day for the symptoms. We did discuss starting her on a PPI but at this point given that her symptoms are not daily, she is not having any worrisome symptoms, and the endoscopy did not reveal any significant findings, I think it would be reasonable to put her on a trial of a prescription strength H2 papa for now given the underlying history of osteoporosis and rheumatoid arthritis with the theoretical risk of worsening bone disease from the PPIs. However, I did advise her that if the famotidine does not work for the reflux she should let me know and we can always put her on a PPI if need be. We did review her negative colonoscopy in 2022 and given her age of 74 I [...] assistance in the future. Plan Of Treatment Future Test Test Name Order Date UPPER GI ENDOSCOPY 08/10/2014 COLONOSCOPY 08/10/2014 UPPER GI ENDOSCOPY 12/31/2022 COLONOSCOPY 12/31/2022 Insurance Providers Payer Name Payer Address Payer Phone Subscriber Number Group Number Insured Name Patient Relationship to Insured Coverage Start Date Coverage End Date MEDICARE OF [place] [address] [place] [address] [phone] [id number] ERNIE CARABALLO Self - patient is the insured MED[employer] ATT[employer] CLAIMS [address] [place] [address] [id number] ERNIE CARABALLO Self - patient is the insured Medical (General) History Medical History History ICD Code Colonoscopy 10-19-2003--only internal hem orrhoids Hyperlipidemia Denies [place],DM,CVA,Lung disease,renal dise ase GERD-upper endoscopy in 2014 [...] and ultrasound of the a bdomen 12/2022 Rheumatoid arthritis Upper endoscopy in January revealed a small hiatal hernia and changes of reflux, but no evidence of any significant esophagitis or Phillips's esophagus. Duodenal biopsies were negative at that time for celiac disease. At that time she had anemia which did resolve. Colonoscopy in January 2023 wa s negative other than a non-adenomatous polyp removed from the cecum. That had been done for anemia that resolved osteoporosis Surgical History Surgery Date(Month/Year) Cataract and lens implants for both eyes Hysterectomy and appy
--- OUTSIDE RECORDS SUMMARY | 2025-05-30 09:16 | XMS_ITS | Clinical Summary ---
Author Organization [facility] Address [address] [place] [address] [place] [address] Phone Care Team Providers Care Head Operator Name Role Phone Bert La MD Primary Care Provider Allergies Active Allergy Reactions Criticality Noted Date Comments Penicillins 09/04/2023 Sulfadiazine 09/04/2023 Medications lisinopril (PRINIVIL,ZESTR IL) 5 MG tablet Take 1 tablet by mouth every morning. 07/19/2023 Active predniSONE (DELTASONE) 20 MG tablet 3 tablets X 3 days, 2 tablets X 3 days , 1 tablet X 3 days 18 tablet 09/04/2023 Active Immunizations No known immunizations Social History Tobacco Use Types Packs/Day Years Used Date Smoking Tobacco: Never Assessed Education Answer Date Recorded Are you interested in more education? Not on deo e 09/04/2023 Are you concerned about learning? Not on file 09/04/2023 No 09/04/2023 No 09/04/2023 Digital Access Answer Date Recorded No 09/04/2023 No 09/04/2023 Reliable internet access at home? Not on file 09/04/2023 Device with a working camera? Not on file Comments Unknown Sex and Gender Information Value Date Recorded Sex Assigned at Not on file Legal Sex Female 9:07 AM EST Gender Identity Not on file Sexual Orientation Not on file Last Filed Vital Signs Vital Sign Reading Time Taken Comments Blood Pressure 151/74 09/04/2023 9:27 AM EST Pulse 75 09/04/2023 9:27 AM EST Temperature 37.1 C (98.7 F) 09/04/2023 9:27 AM EST Respiratory Rate 20 09/04/2023 9:27 AM EST Oxygen Saturation 98% 09/04/2023 9:27 AM EST Inhaled Oxygen Concentration - - Weight - - Height - - Body Mass Index - - Plan of Treatment Health Maintenance Due Date Last Done Comments Adult Td,Tdap Booster 1950 CREATININE LEVEL 1950 LIPID PANEL 1950 POTASSIUM LEVEL 1950 DEPRESSION SCREENING 1962 SMOKING Hx and SMOKELESS TOBACCO SCREENING 1963 HEPATITIS C SCREENING 1968 MAMMOGRAM 1990 COLOGUARD 1995 COLONOSCOPY 1995 COLORECTAL CANCER SCREENING 1995 FIT TEST 1995 FOBT 1995 SIGMOIDOSCOPY 1995 VIRTUAL COLONOSCOPY 1995 PNEUMOCOCCAL VACCINES (50+ years) (1 of 1 - PCV) 2000 ZOSTER VACCINES (1 of 2) 2000 OSTEOPOROSIS SCREENING INITIAL (ONE-TIME) 2015 COVID-19 VACCINE ( season) 2024 07/24/2022, 08/30/2021, 12/29/2020, Additional history exists RSV VACCINE (1 - 1-dose 75+ series) 2025 HEPATITIS A VACCINES Aged Out No long er eligible based on patient's age to complete this topic HIB VACCINES Aged Out No longer eligi ble based on patient's age to complete this topic MENINGOCOCCAL VACCINES (ACWY) Aged Out No longer eligible based on patient's age to complete this topic MENINGOCOCCAL VACCINES (B) Aged Out N o longer eligible based on patient's age to complete this topic Medical Devices Not on file Insurance MEDICARE PART A & B [employer] MEDEX SUPPLEMENT MEDICARE PART A & B [employer] MEDEX SUPPLEMENT MEDICARE PART A & B [employer] [place] [address] MEDICARE PART A & B [employer] MEDEX SUPPLEMENT MEDICARE PART A & B [employer] MEDEX SUPPLEMENT MEDICARE PART A & B [employer] MEDEX SUPPLEMENT Care Teams Head Operator Relationship Specialty Start Date End Date Bert La MD [address] [place] [address] [place] [address] PCP - General Internal Medicine 09/04/23 Additional Source Comments The information contained in this document represents components of the legal health record. It is not the complete legal health record.[facility]
== END ==
LOC: HO.CARD 08:50
PROVIDERS: PCP Internal Medicine; Visit Provider Internal Medicine
DX: I25.10 Atherosclerotic heart disease of native coronary artery without angina pectoris (principal)
CPT/HCPCS: 93306

== ENCOUNTER → 2025-06-11 08:43 | Outpatient (REF) | payer MEDICARE, SELFPAY ==
--- OUTSIDE RECORDS SUMMARY | 2016-03-03 13:50 | XMS_ITS | Continuity of Care Document ---
Author Organization [facility] Address [address] [place] [address] Dr [address] [place] [address] Phone Care Team Providers Care Hr Payroll Coordinator Name Role Phone No Information Unavailable Unavailable Advance Directives Directive Yes / No Effective Date File Name No Information Encounters Encounter Description Practice Location Reason(s) For Visit Diagnoses Date Provider Providers Copied on Encounter [facility], [address] [place] [address] Dr [address], [place], [id number], [place] tel:[phone] [facility] No Information No Information Family History Family Member Type Diagnosis Age At Onset No Information Payers Payer name Insurance type Covered republican ID Authoriza tion(s) No Information Social History Type Description Quantity Date Captured Comments Sex Female Smoking Status No Information Chief Complaint And Reason For Visit No Information Reason For Referral Reason For Referral No Information History Of Present Illness Encounter Date Complaint History Of Prese nt Illness No Information Functional Status Date Functional Assessmen t No Information Instructions Date Instruction Additional Infor mation No Information Assessments Type Assessment Date No Information Patient Care Teams Name Effective Dates (start - stop) Status Members No Information
--- NOTE | ~2025-06-11 | NM_ITS ---
EXERCISE MYOCARDIAL PERFUSION STUDY INDICATION: Precordial chest pain to evaluate for myocardial ischemia TECHNIQUE: The patient was brought in for an exercise perfusion study on 06/11/2025. Patient performed exercise as per Chaitanya protocol and was injected 25 mCi of sestamibi once target heart rate was achieved. Images were obtained using the SPECT gamma camera interlaced with the gating device. Images were obtained in supine position. Resting perfusion study was performed on 06/12/2025. Patient was administered 25 mCi of sestamibi intravenously at rest. Images were then obtained in supine position. Images obtained without without CT attenuation. Total DLP 73 mGy-cm. Images were processed with the software and compared side to side in short axis, horizontal long axis and vertical long axis views. FINDINGS: Raw images were reviewed The stress perfusion study showed nonattenuated images show normal uptake of radiotracer in all segments of the LV myocardium. Attenuated corrected images show minimal thinning of the apex of the LV myocardium.. The gated study shows normal LV systolic function with calculated LVEF of greater than 70%. LV cavity is normal in size. The gated study shows normal systolic wall thickening and contraction of segments. Resting study shows nonattenuated images show mildly reduced uptake in the basal inferior wall of the LV myocardium. Attenuated corrected images show mildly to moderately reduced uptake in the apex of the LV myocardium.. Gating at rest reveals normal systolic wall motion with ejection fraction at 68%. The findings are consistent with normal myocardial perfusion. NM/NM cardiolite stress test IMPRESSION: 1. Myocardial perfusion imaging study shows normal myocardial perfusion. 2. Gated LVEF is 68%. 3. Transient ischemic dilatation not present. EKG revealed negative for ischemia. Electronically signed by: Arcenio Eubanks MD 06/12/2025 03:38 PM EDT
--- NOTE | 2025-06-11 08:46 | CA_ITS ---
Acquisition Time: 2025-06-11 08:57:31 Total Exercise Time: 00:05:14 Test Indications: Abnormal ECG RBBB Medications: ASA ALENDRONATE ATORVASTATIN ENBREL FAMOTIDINE LISINOPRIL METHOTREXATE Protocol: DARIAN Max HR: 164 BPM 112% of Pred: 146 BPM Max BP: 170/74 mmHG Max Work Load: 4.6 METS Exercise stress test with exercise 5 mins 14 secs of Darian Protocol held at Stage 1, achieving 102% MPHR, with reports of SOB, no chest pain, with frequent PVCs, PACs and brief atrial runs- max 3 beats, with normotensive response to exercise. Without EKG changes meeting criteria for ischemia. In recovery, pt's breathing returned to baseline. Nuclear images pending. Test reviewed with Dr. Eubanks. Referred By: Narendra Noonan Electronically Signed By: Arpan Stovall
--- OUTSIDE RECORDS SUMMARY | 2025-06-11 09:43 | XMS_ITS | Clinical Summary ---
Author Organization [facility] Address [address] [place] [address] [place] [address] Phone Care Team Providers Care Care Center Manager Name Role Phone Bert La MD Primary [...] 2) 2000 OSTEOPOROSIS SCREENING INITIAL (ONE-TIME) 2015 INFLUENZA VACCINE (#1) 2025 3, 07/24/2022, 07/16/2021, Additional history exists COVID-19 VACCINE (2024- season) 2025 07/24/2022, 08/30/2021, 12/29/2020, Additional history exists RSV [...] file Insurance MEDICARE PART A & B [employer] MEDEX SUPPLEMENT MEDICARE PART A & B [employer] MEDEX SUPPLEMENT MEDICARE PART A & B [employer] MEDEX SUPPLEMENT MEDICARE PART A & B [employer] MEDEX SUPPLEMENT MEDICARE PART A & B [employer] MEDEX SUPPLEMENT MEDICARE PART A & B [employer] MEDEX SUPPLEMENT Care Teams Care Center Manager Relationship Specialty Start Date End Date Bert La MD [address] [place] [address] [place] [address] PCP - General Internal Medicine 09/04/23 Additional Source Comments The information contained in this document represents components of the legal health record. It is not the complete legal health record.[facility]
--- OUTSIDE RECORDS SUMMARY | 2025-06-11 09:48 | XMS_ITS | Patient Health Record ---
Author Organization [facility] Address [address] [place] [address] Care Team Providers Care Sinker Winder Name Role Phone Corrina Sheppard M.D. Primary Care Provider Unavail shalom AnnaEstuardo Unavailable [phone] Allergies Allergen (clinical drug ingredient) Drug/Non Drug [...] Risk Notes Problem Diverticular disease of colon (580328720) Diverticulosis of large intestine without perforation or abscess without bleeding (K57.30) Active confirmed Problem Gastroesophageal reflux disease (726168514) Gastroesophageal reflux disease (K21.9) Active confirmed Problem Iron deficiency anemia (28756681) Iron deficiency anemia (D50.9) Active confirmed Problem 77565443 Hiatal hernia (K44.9) Active confirmed Problem 797255880 GERD with esophagitis (K21.0) Active confirmed Problem 35971782 Iron deficiency anemia, unspecified iron deficiency anemia type (D50.9) Active confirmed Problem 71584407 Upper abdominal pain (R10.10) Active confirmed Vital Signs Temperature 97.5 degrees Fahrenheit 03/22/2025 Blood pressure diastolic 01 mm Hg 03/22/2025 Height 63 in 03/22/2025 Blood pressure systolic 001 mm Hg 03/22/2025 Weight 145 lbs 03/22/2025 BMI 25.68 kg/m2 03/22/2025 Encounters Encounter Location Date Provider Diagnosis [facility] [address] [place] [address] 03/22/2025 Estuardo Anna Gastroesophageal ref lux disease [...] her ongoing symptoms of reflux despite using [id number]-jrjplft Zantac I shall switch her to a [...] her ongoing symptoms of reflux despite using [id number]-vdz-[id number] Zantac I shall switch her to a [...] OF [place] [address] [place] [address] [id number] ERNIE CARABALLO Self - patient is the insured [employer] ATTN CLAIMS [address] [place] [address] [phone] [id number] ERNIE CARABALLO Self - patient is the insured Medical (General) History Medical History History ICD Code Colonoscopy 10-19-2003--only internal hem orrhoids Hyperlipidemia Denies [place],DM,CVA,Lung disease,renal dise ase GERD-upper endoscopy in 2014 [...]
== END ==
LOC: HO.CARD 08:43
PROVIDERS: PCP Internal Medicine; Visit Provider Internal Medicine
DX: I25.10 Atherosclerotic heart disease of native coronary artery without angina pectoris (principal); R07.2 Precordial pain
CPT/HCPCS: 78452; 93017; A9500

== ENCOUNTER → 2025-06-11 08:46 | Outpatient (BNV) | payer MEDICARE, SELFPAY | PROVIDERS: PCP Internal Medicine | DX: R07.2 Precordial pain (principal) | CPT/HCPCS: 78452; 93016; 93018 ==

== ENCOUNTER 2025-07-10 12:35 | Outpatient (AMB) | payer MEDICARE, SELFPAY ==
--- NOTE | 2025-07-10 12:43 | A.OFFVIS_ITS ---
Vital Signs 07/10/25 12:44 Height 5 ft 3 in Weight 149 lb 0.52 oz BMI 26.4 BP 124/62 Blood Pressure Location Lt brachial Position Sitting Pulse 75 Pulse Source Pulse Oximeter Intake Visit Reasons: 3 mth f/up echo/ mibi Building Maintenance Worker Required: No Accompanied by: Self / Same As Patient Allergies Penicillins (PENICILLINS) Allergy (Intermediate, Verified 03/08/25 14:49) HIVES sulfamethoxazole (From Bactrim DS) Allergy (Unknown, Verified 03/08/25 14:49) RASH trimethoprim (From Bactrim DS) Allergy (Unknown, Verified 03/08/25 14:49) RASH atorvastatin Adverse Reaction (Severe, Verified 03/08/25 14:49) Muscle Pain Pravastatin Adverse Reaction (Severe, Uncoded 09/21/23 10:23) Muscle Pain Medication List - Last Reconciled 07/10/25 by Narendra Noonan MD alendronate 70 mg PO QWEEK aspirin (Adult Aspirin Regimen) 81 mg PO DAILY atorvastatin 80 mg PO DAILY 90 days etanercept (Enbrel) 50 mg subcut QWEEK famotidine 40 mg PO DAILY folic acid 1 mg PO DAILY lisinopril 5 mg PO DAILY methotrexate sodium 20 mg PO QWEEK HPI Comments Details: Felisha returns for follow-up regarding coronary artery disease. Since last seen, she states she feels fine. No cardiac symptoms. [facility] Medical History Atherosclerotic cardiovascular disease High cholesterol Surgical History H/O: hysterectomy Family History Father Myocardial infarction Mother Hx of CABG CHF (congestive heart failure) Mother No problems noted. Father No problems noted. Social History Housing: House Alcohol intake: never Patient Tobacco Use Status: Never used Tobacco e-Cigarette/Vaping Use: Never Used service: No Current occupational status: retired Cognitive needs: No Hearing needs: No Vision needs: No Review of Systems Const Denies chills, Denies fatigue, Denies fever(s), Denies frequent falls, Denies weakness, Denies weight gain and Denies weight loss ENT Denies dizziness Card Denies chest pain, Denies leg edema, Denies lightheadedness, Denies palpitations, Denies dyspnea and Denies dyspnea on exertion Resp Denies cough, Denies dyspnea and Denies dyspnea on exertion GI Denies hematochezia Musc Denies abnormal gait, Denies muscle weakness, Denies numbness, Denies radiating pain into limb and Denies tingling Neuro Denies abnormal gait, Denies dizziness, Denies frequent falls, Denies numbness, Denies tingling and Denies weakness Endo Denies fatigue and Denies palpitations Physical Exam Vital Signs: Last Vital Signs Pulse 75 07/10/25 12:44 BP 124/62 07/10/25 12:44 BMI result Body Mass Index 26.4 Const General: comfortable and no acute distress Orientation/consciousness: patient oriented x3 HEENT Other: Unremarkable Head: Yes normal to inspection Neck Neck: Yes normal visual inspection Chest Chest palpation & inspection: normal inspection of the chest Resp Auscultation: clear to auscultation bilaterally Cardio Palpation: normal PMI Heart sounds: S1 normal heart sound present, S2 normal heart sound present, no gallops, no murmurs and no rubs GI Palpation (GI): Soft to palpation Back/Spine/Pelvis Other: unremarkable Skin General skin exam: no rashes or lesions noted Neuro General: patient oriented x3 Extrem General: Yes normal to inspection Psych Mental Status: mental status grossly normal Assessment & Plan Assessment & Plan (1) Atherosclerotic cardiovascular disease: Code(s): I25.10 - Atherosclerotic heart disease of [place] coronary artery without angina pectoris Category: Medical (2) Right bundle branch block: Code(s): I45.10 - Unspecified right bundle-branch block Category: Medical Plan Cardiac testing reviewed. In the coronary CTA 2022, she had intermediate grade disease in the LAD and RCA but nothing clearly obstructive. Recent echocardiogram with LVEF of 58%. Normal peak global longitudinal strain. Otherwise unremarkable. Myocardial perfusion imaging study shows normal perfusion. In the exercise component, she was able to do 4.6 METS. Overall, treat for stable coronary disease. Continue aspirin and statins. Blood pressure seems stable on lisinopril. With regard to the right bundle-branch block, yearly EKGs. Follow up in one year. In the interim, she will call us with any concerns. Total time spent including review of data, counseling, documentation, coordination of care-32 minutes. Coding Level of Care Code Est Pt Level 4 (33238) Diagnoses Atherosclerotic cardiovascular disease I25.10 Right bundle branch block I45.10
[2025-07-10 12:44] VITALS: BP 124/62; PULSE 75; BMI 26.4
--- OUTSIDE RECORDS SUMMARY | 2025-07-10 15:25 | XMS_ITS | Clinical Summary ---
Author Organization [facility] Address [address] [place] [address] [place] [address] Phone Care Team Providers Care Inbound Customer Service Agent Name Role Phone Bert La MD Primary [...] file Insurance MEDICARE PART A & B [employer] MEDEX SUPPLEMENT MEDICARE PART A & B [employer] MEDEX SUPPLEMENT MEDICARE PART A & B [employer] MEDEX SUPPLEMENT MEDICARE PART A & B [employer] MEDEX SUPPLEMENT MEDICARE PART A & B [employer] MEDEX SUPPLEMENT MEDICARE PART A & B [employer] MEDEX SUPPLEMENT Care Teams Inbound Customer Service Agent Relationship Specialty Start Date End Date Bert La MD [address] [place] [address] [place] [address] PCP - General Internal Medicine 09/04/23 Additional Source Comments The information contained in this document represents components of the legal health record. It is not the complete legal health record.[facility]
--- OUTSIDE RECORDS SUMMARY | 2025-07-10 15:25 | XMS_ITS | Patient Health Record ---
Author Organization [facility] Address [address] [place] [address] Care Team Providers Care Band Saw Operator Name Role Phone Corrina Sheppard M.D. Primary Care Provider Unavail shalom AnnaEstuardo Unavailable [phone] Allergies Allergen (clinical drug ingredient) Drug/Non Drug [...] Risk Notes Problem Diverticular disease of colon (284965497) Diverticulosis of large intestine without perforation or abscess without bleeding (K57.30) Active confirmed Problem Gastroesophageal reflux disease (196129790) Gastroesophageal reflux disease (K21.9) Active confirmed Problem Iron deficiency anemia (79947909) Iron deficiency anemia (D50.9) Active confirmed Problem 17798438 Hiatal hernia (K44.9) Active confirmed Problem 768730531 GERD with esophagitis (K21.0) Active confirmed Problem 00415185 Iron deficiency anemia, unspecified iron deficiency anemia type (D50.9) Active confirmed Problem 16151275 Upper abdominal pain (R10.10) Active confirmed Vital Signs Temperature 97.5 degrees Fahrenheit 03/22/2025 Blood pressure diastolic 01 mm Hg 03/22/2025 Height 63 in 03/22/2025 Blood pressure systolic 001 mm Hg 03/22/2025 Weight 145 lbs 03/22/2025 BMI 25.68 kg/m2 03/22/2025 Encounters Encounter Location Date Provider Diagnosis [facility] [address] [place] [address] 03/22/2025 Estuardo Anna Gastroesophageal ref lux disease [...] her ongoing symptoms of reflux despite using [id number]-bqtndwn Zantac I shall switch her to a [...] her ongoing symptoms of reflux despite using agth-wzv-nacndyo Zantac I shall switch her to a [...] OF [place] [address] [place] [address] [id number] ERNIE CARABALLO Self - patient is the insured MED[employer] ATTN CLAIMS [address] [place] [address] [id number] ERNIE CARABALLO Self - patient is the insured Medical (General) History Medical History History ICD Code Colonoscopy 10-19-2003--only internal hem orrhoids Hyperlipidemia Denies [place],DM,CVA,Lung disease,renal dise ase GERD-upper endoscopy in 2014 [...]
== END 2025-07-10 12:54 | disposition home or self-care (01) ==
LOC: HO.HCS 12:35
PROVIDERS: PCP Internal Medicine; Visit Provider Internal Medicine
DX: I25.10 Atherosclerotic heart disease of native coronary artery without angina pectoris (principal); I45.10 Unspecified right bundle-branch block
CPT/HCPCS: 99214

== ENCOUNTER → 2025-07-10 12:35 | Outpatient (BNVA) | payer MEDICARE, SELFPAY | PROVIDERS: PCP Internal Medicine; Visit Provider Internal Medicine | DX: I25.10 Atherosclerotic heart disease of native coronary artery without angina pectoris (principal); I45.10 Unspecified right bundle-branch block; Z79.82 Long term (current) use of aspirin; I10 Essential (primary) hypertension; E78.5 Hyperlipidemia, unspecified | CPT/HCPCS: 99212 ==

== ENCOUNTER 2025-08-16 06:01 | Outpatient (REF) | payer MEDICARE, SELFPAY ==
--- OUTSIDE RECORDS SUMMARY | 2025-08-16 06:04 | XMS_ITS | Clinical Summary ---
Author Organization [facility] Address [address] [place] [address] [place] [address] Phone Care Team Providers Care Mathematical Technician Name Role Phone Bert La MD Primary [...] on patient's age to complete this topic IPV VACCINES Aged Out No longer eligi ble based on patient's age to complete this topic MENINGOCOCCAL VACCINES (ACWY) Aged Out No longer eligible based on patient's age to complete this topic MENINGOCOCCAL VACCINES (B) Aged Out N o longer eligible based on patient's age to complete this topic Medical Devices Not on file Insurance DR [place], YANNICK [address] MEDICARE PART A & B [employer] [place] [address] MEDICARE PART A & B [employer] MEDEX SUPPLEMENT MEDICARE PART A & B Network [employer] MEDEX SUPPLEMENT MEDICARE PART A & B Network [employer] MEDEX SUPPLEMENT MEDICARE PART A & B Network [employer] MEDEX SUPPLEMENT MEDICARE PART A & B Network [employer] MEDEX SUPPLEMENT Care Teams Mathematical Technician Relationship Specialty Start Date End Date Bert La MD [address] [place] [address] [place] [address] PCP - General Internal Medicine 09/04/23 Additional Source Comments The information contained in this document represents components of the legal health record. It is not the complete legal health record.[facility]
--- OUTSIDE RECORDS SUMMARY | 2025-08-16 06:05 | XMS_ITS | Patient Health Record ---
Author Organization [facility] Address [address] [place] [address] Care Team Providers Care Charge Weigher Name Role Phone Corrina Sheppard M.D. Primary Care Provider Unavail shalom AnnaEstuardo Unavailable [phone] Allergies Allergen (clinical drug ingredient) Drug/Non Drug [...] BY MOUTH EVERY MORNING Orally Once a day; Duration: 90 days Not-Taking Folic Acid 400 MCG 1 tablet Orally Once a day Active Atorvastatin Calcium 80 MG 1 tablet Orally Once a day Active Lisinopril 5 MG 2 tablets Orally Onc e a day Active Methotrexate 2.5 MG/ML as directed Orally Active Iron (Ferrous Sulfate) 325 (65 Fe) MG 1 tablet Orally Once a day; Duration: 30 day(s) Active Zantac 360 10 MG 1 tablet as needed Orally Twice a day Active Metamucil Fiber - as directed Orally Active Famotidine 40 MG 1 tablet Orally Ever y morning and every evening for reflux and heartburn; Duration: 30 days 03/22/2025 Active Enbrel 50 MG/ML 1 mL Subcutaneous Active Immunizations Vaccine Route Administration Date Status Comme nts Influenza Unknown 07/21/2022 Administered Influenza Unknown 07/25/2024 Administered Problems Problem Type SNOMED Code ICD Code Onset Dates Problem Status W/U Status Risk Notes Problem Diverticular disease of colon (454099893) Diverticulosis of large intestine without perforation or abscess without bleeding (K57.30) Active confirmed Problem Gastroesophageal reflux disease (092135920) Gastroesophageal reflux disease (K21.9) Active confirmed Problem Iron deficiency anemia (43448562) Iron deficiency anemia (D50.9) Active confirmed Problem Hiatal hernia (99019571) Hiatal hernia (K44.9) Active confirmed Problem Gastroesophageal reflux disease with esophagitis (disorder) (152508746) GERD with esophagitis (K21.0) Active confirmed Problem Iron deficiency anemia (84982426) Iron deficiency anemia, unspecified iron deficiency anemia type (D50.9) Active confirmed Problem Upper abdominal pain (63023345) Upper abdominal pain (R10.10) Active confirmed Vital Signs Temperature 97.5 degrees Fahrenheit 03/22/2025 Blood pressure diastolic 01 mm Hg 03/22/2025 Height 63 in 03/22/2025 Blood pressure systolic 001 mm Hg 03/22/2025 Weight 145 lbs 03/22/2025 BMI 25.68 kg/m2 03/22/2025 Encounters Encounter Location Date Provider Diagnosis [facility] [address] [place] [address] 03/22/2025 Estuardo Anna Gastroesophageal ref lux disease [...] her ongoing symptoms of reflux despite using eqlb-bly-yqlweun Zantac I shall switch her to a [...] her ongoing symptoms of reflux despite using tcag-uak-qguiroq Zantac I shall switch her to a [...] [place] [address] [place] [address] [id number] RASHMI ERNIE Self - patient is the insured MED[employer] ATTN CLAIMS [address] [place] [address] [phone] [id number] ERNIE CARABALLO Self - patient is the insured Medical (General) History Medical History History ICD Code Colonoscopy 10-19-2003--only internal hem orrhoids Hyperlipidemia Denies [place],DM,CVA,Lung disease,renal dise ase GERD-upper endoscopy in 2014 [...]
[2025-08-16 06:19] LABS: MANUAL DIFF FLAG NO
[2025-08-16 07:15] LABS: Hematocrit 37.1 % (37.0-47.0); Hemoglobin 12.4 g/dl (12.0-16.0); Imm Gran Abs Auto 0.00 X10*3/uL (0.00-0.03); Imm Gran Pct Auto 0.0 % (0.0-0.4); Lymphocytes Absolute Auto 1.8 X10*3/uL (1.2-4.9); Mean Corpuscular HGB Conc 33.4 g/dl (31.0-35.0); Mean Corpuscular Hemoglobin 32.2 pg (27.0-33.0); Mean Corpuscular Volume 96.4 fL (80.0-98.0); NRBC Abs Auto 0.000 X10*3/uL (0.0-0.012); NRBC Pct Auto 0.0 /100WBC (0.0-0.2); Platelet Count 181 X10*3/uL (160-400); Red Blood Count 3.85 X10*6/uL (4.20-5.50); White Blood Count 4.1 X10*3/uL (4.8-10.8)
[2025-08-16 07:41] LABS: Alanine Aminotransferase 29 U/L (0-31); Albumin Level 4.2 g/dL (3.5-5.0); Alkaline Phosphatase 45 U/L (39-117); Anion Gap 12 (12-20); Aspartate Amino Transferase 29 U/L (5-31); Blood Urea Nitrogen 17 mg/dL (9-16); Calcium 8.9 mg/dL (8.4-10.2); Carbon Dioxide 25 mmol/L (22-29); Chloride 110 mmol/L (96-108); Cholesterol 156 mg/dL (<200); Estimated Glomerular Filt Rate > 60; HDL Cholesterol 49 mg/dL (>40); Potassium 4.1 mmol/L (3.3-5.1); Sodium 143 mmol/L (135-145); Total Protein 6.7 g/dL (6.5-8.0); Triglycerides 76 mg/dL (<150)
[2025-08-16 08:51] LABS: Free T4 (Free Thyroxine) 1.02 ng/dL (0.71-1.85)
[2025-08-24 16:08] LABS: Vitamin D 25-OH, D2 <4 ng/mL; Vitamin D 25-OH, D3 27 ng/mL; Vitamin D 25-OH, Total 27 ng/mL (30-100)
== END 2025-08-16 06:02 | disposition home or self-care (01) ==
LOC: HO.LAB 06:01
PROVIDERS: PCP Internal Medicine; Visit Provider Internal Medicine
DX: Z13.0 Encounter for screening for diseases of the blood and blood-forming organs and certain disorders involving the immune mechanism (principal); Z13.228 Encounter for screening for other metabolic disorders; I25.10 Atherosclerotic heart disease of native coronary artery without angina pectoris; R07.9 Chest pain, unspecified; Z13.21 Encounter for screening for nutritional disorder; Z13.29 Encounter for screening for other suspected endocrine disorder
CPT/HCPCS: 36415; 80053; 80061; 82306; 84439; 84443; 85025

== ENCOUNTER 2025-09-07 13:46 | Outpatient (AMB) | payer MEDICARE, SELFPAY ==
--- NOTE | 2025-09-07 13:51 | MHC.PC.OV ---
Vital Signs 09/07/25 13:53 Height 5 ft 3 in Weight 153 lb BMI 27.1 BP 106/56 L Blood Pressure Location Rt brachial Position Sitting Respiration 12 Pulse 57 Pulse Source Pulse Oximeter Pulse Oximetry (%) 96 Oxygen Delivery Method Room Air Intake Visit Reasons: Follow-up/SARAH from [address] Intake Note: Transfer of care Community Board Member Required: No Accompanied by: Sister Allergies Penicillins (PENICILLINS) Allergy (Intermediate, Verified 09/07/25 13:52) HIVES sulfamethoxazole (From Bactrim DS) Allergy (Unknown, Verified 09/07/25 13:52) RASH trimethoprim (From Bactrim DS) Allergy (Unknown, Verified 09/07/25 13:52) RASH atorvastatin Adverse Reaction (Severe, Verified 09/07/25 13:52) Muscle Pain Pravastatin Adverse Reaction (Severe, Uncoded 09/07/25 13:52) Muscle Pain Tobacco use date assessed: 09/07/25 Fall risk assessment: No Falls in past year Last assessed Fall Risk: 09/07/25 Dental Screening Dental Screen Date: 03/08/25 HPI HPI Comments History of Present Illness Details Felisha is a 75 year old female with a past medical history of RA, hypertension, hyperlipidemia presenting for follow up CV: Following with cardiology at [facility]. Denies chest pain, shortness of breast. coronary CTA 2022, she had intermediate grade disease in the LAD and RCA but nothing clearly obstructive. Echocardiogram with LVEF of 58%. Myocardial perfusion imaging study shows normal perfusion. RA followed by arthritis treatment ctr. continues MTX, folic acid, enbrel Mammo 10/2024 DXA 11/2023 Colonoscopy 01/2023 ROS CONSTITUTIONAL: Denies weight loss, fever and chills. HEENT: Denies changes in vision and hearing. RESPIRATORY: Denies SOB and cough. CV: Denies palpitations and CP GI: Denies abdominal pain, nausea, vomiting and diarrhea. : Denies dysuria and urinary frequency. MSK: Denies new myalgia and joint pain. SKIN: Denies rash and pruritus. NEUROLOGICAL: Denies headache PSYCHIATRIC: Denies recent changes in mood. PHYSICAL EXAM: GENERAL: Alert and oriented x 3. NAD EYES: EOMI. Anicteric. HENT: Moist mucous membranes. No scleral icterus. No cervical lymphadenopathy. LUNGS: Clear to auscultation bilaterally. CARDIOVASCULAR: Regular rate and rhythm. No murmur. No JVD. ABDOMEN: Soft, non-tender +bs EXTREMITIES: No edema. Non-tender. SKIN: No rashes or lesions. Warm. NEUROLOGIC: No focal neurological deficits. CN II-XII grossly intact PSYCHIATRIC: Cooperative. Appropriate mood and affect [facility] Medical History Atherosclerotic cardiovascular disease High cholesterol Surgical History H/O: hysterectomy Family History Father Myocardial infarction Mother Hx of CABG CHF (congestive heart failure) Mother No problems noted. Father No problems noted. Social History Housing: House Alcohol intake: never Patient Tobacco Use Status: Never used Tobacco e-Cigarette/Vaping Use: Never Used service: No Current occupational status: retired Cognitive needs: No Hearing needs: No Vision needs: No Questionnaire Thrive Questionnaire Date Thrive assessed: 03/08/25 AUDIT C Alcohol Use Questionnaire (AUDIT-C) 1. How often do you have a drink containing alcohol?: Never 3. How often do you have six or more drinks on one occasion?: Never Total Score: 0 RUBA-7 AMB Questionnaire RUBA-7 Date RUBA - 7 assessed: 03/08/25 Source: Developed by Drs. Estuardo Vance, Aretha Banks, Tan Vogt and colleagues, with an educational chely from [employer]. Physical exam (Primary Care) Vital Signs: Last Vital Signs Pulse 57 09/07/25 13:53 Resp 12 09/07/25 13:53 BP 106/56 L 09/07/25 13:53 Pulse Ox 96 09/07/25 13:53 Oxygen Delivery Method Room Air 09/07/25 13:53 BMI result Body Mass Index 27.1 Tobacco/Smoking Status: Tobacco use Status Tobacco use date assessed 09/07/25 09/07/25 13:55 Patient Tobacco Use Status Never used Tobacco 09/07/25 13:55 e-Cigarette/Vaping Use Never Used 09/07/25 13:55 Thrive Assessment: Date of Thrive Assessment Date Thrive assessed 03/08/25 09/07/25 13:55 Coding Level of Care Code Complex visit Add On G2211 Diagnoses Atherosclerotic cardiovascular disease I25.10 High cholesterol E78.00 Rheumatoid arthritis involving multiple sites, unspecified whether rheumatoid factor present M06.9 Rheumatoid arthritis location: multiple sites Rheumatoid factor presence: unspecified presence Assessment & Plan Assessment & Plan (1) Atherosclerotic cardiovascular disease: Code(s): I25.10 - Atherosclerotic heart disease of [place] coronary artery without angina pectoris Category: Medical (2) High cholesterol: Code(s): E78.00 - Pure hypercholesterolemia, unspecified Category: Medical (3) Rheumatoid arthritis: Code(s): M06.9 - Rheumatoid arthritis, unspecified Category: Medical Qualifiers: Rheumatoid arthritis location: multiple sites Rheumatoid factor presence: unspecified presence Qualified Code(s): M06.9 - Rheumatoid arthritis, unspecified Plan 75 year old female presenting for follow up Interval history reviewed CAD-blood pressure well controlled. Continue high dose statin, cardiology follow up RA-stable on current medications preventive measures up to date Orders: Orders MM tomosynthesis screening BI 09/07/25 Z12.31 - Encounter for screening mammogram for malignant neoplasm of breast Referrals Urogynecology Referral N81.10 - Cystocele, unspecified
[2025-09-07 13:53] VITALS: BP 106/56; PULSE 57; RESP 12; O2SAT 96; BMI 27.1
--- OUTSIDE RECORDS SUMMARY | 2025-09-07 18:00 | XMS_ITS | Clinical Summary ---
Author Organization [facility] Address [address] [place] [address] Phone Care Team Providers Care Livestock Yard Attendant Name Role Phone Bert La MD Primary [...] TOBACCO SCREENING 1963 HEPATITIS C SCREENING 1968 COLOGUARD 1995 COLONOSCOPY 1995 COLORECTAL CANCER SCREENING 1995 FIT TEST 1995 FOBT 1995 SIGMOIDOSCOPY 1995 VIRTUAL COLONOSCOPY 1995 PNEUMOCOCCAL VACCINES (50+ years) (1 of 1 - PCV) 2000 ZOSTER VACCINES (1 of 2) 2000 OSTEOPOROSIS SCREENING INITIAL (ONE-TIME) 2015 INFLUENZA VACCINE (#1) 2025 , 07/24/2022, 07/16/2021, Additional history exists COVID-19 VACCINE [...] file Insurance MEDICARE PART A & B [employer] MEDEX SUPPLEMENT MEDICARE PART A & B [employer] MEDEX SUPPLEMENT MEDICARE PART A & B Member Subscriber Plan / Payer ( fective 2017-Present) Name:Felisha Parkinson Member ID:[id number] Relation to Subscriber:Self Name:Felisha Parkinson Subscriber ID:[id number] Payer ID:[id number] Group ID:Not on file Type:Medicare Address: [employer] [address] [place] [employer] MEDEX SUPPLEMENT MEDICARE PART A & B Tagstr MEDEX SUPPLEMENT MEDICARE PART A & B Tag[employer] MEDEX SUPPLEMENT MEDICARE PART A & B Tagstr MEDEX SUPPLEMENT Care Teams Livestock Yard Attendant Relationship Specialty Start Date End Date Bert La MD [address] [place] [address] [place] [address] PCP - General Internal Medicine 09/04/23 Additional Source Comments The information contained in this document represents components of the legal health record. It is not the complete legal health record.[facility]
== END 2025-09-07 14:20 | disposition home or self-care (01) ==
LOC: HO.HMCFM 13:47
PROVIDERS: PCP Internal Medicine; Visit Provider Internal Medicine
DX: I25.10 Atherosclerotic heart disease of native coronary artery without angina pectoris (principal); E78.00 Pure hypercholesterolemia, unspecified; M06.09 Rheumatoid arthritis without rheumatoid factor, multiple sites

== ENCOUNTER → 2025-09-07 13:46 | Outpatient (BNVA) | payer MEDICARE, SELFPAY | PROVIDERS: PCP Internal Medicine; Visit Provider Internal Medicine | DX: I25.10 Atherosclerotic heart disease of native coronary artery without angina pectoris (principal); E78.00 Pure hypercholesterolemia, unspecified; M06.09 Rheumatoid arthritis without rheumatoid factor, multiple sites; N81.10 Cystocele, unspecified | CPT/HCPCS: 99212 ==